=== PATIENT | female | born 1960 | race Caucasian/White ===

== ENCOUNTER 2024-05-24 08:51 | Outpatient (OUT) | payer BC, SELFPAY ==
--- NOTE | 2024-05-24 09:03 | ECG_ITS ---
[facility] Test Date: 2024-05-24 Pat Name: HAFSA JAIMES Department: Room: - Gender: Female Radiologist: : [id number] Requested By: MARILYN DUKE Order Number: [id number] Reading MD: SEVERINO COUCH Measurements Intervals [place] Rate: 59 P: 23 VA: 173 QRS: -27 QRSD: 90 T: 6 QT: 395 QTc: 394 Interpretive Statements SINUS BRADYCARDIA BORDERLINE LEFT AXIS DEVIATION [QRS AXIS < -20] No previous ECG available for comparison Electronically Signed On 05-24-2024 20:09:44 EDT by SEVERINO COUCH
[2024-05-24 10:17] LABS: Basophils Percent Auto 0.4 % (0.2-2.0); Eosinophils Absolute Auto 0.1 10^3/uL (0.0-0.7); Hematocrit 42.6 % (36.0-48.0); Immature Granulocytes Abs Auto 0.01 10^3/uL (0.00-0.03); Immature Granulocytes Pct Auto 0.2 % (0.0-0.5); Lymphocytes Absolute Auto 1.1 10^3/uL (1.2-3.8); Lymphocytes Percent Auto 21.1 % (20.5-60.0); Mean Corpuscular HGB Conc 32.9 g/dL (29.9-35.2); Mean Corpuscular Hemoglobin 28.4 pg (26.7-34.0); Mean Corpuscular Volume 86.4 fL (81.0-99.0); Mean Platelet Volume 9.5 fL (9.5-13.5); Monocytes Absolute Auto 0.3 10^3/uL (0.3-0.8); Monocytes Percent Auto 6.7 % (1.7-12.0); Neutrophils Absolute Auto 3.6 10^3/uL (1.4-6.5); Neutrophils Percent Auto 70.6 % (43.0-75.0); Platelet Count 231 10^3/uL (150-450); Red Blood Count 4.93 10^6/uL (4.20-5.40); Red Cell Distribution Width 13.1 % (11.0-15.0); White Blood Count 5.1 10^3/uL (4.0-11.0)
[2024-05-24 10:25] LABS: INR 1.05; Partial Thromboplastin Time 29.4 sec (22.3-36.2); Prothrombin Time 11.1 sec (9.0-11.6)
[2024-05-24 10:32] LABS: BUN Creatinine Ratio 11.8; Calcium 9.3 mg/dL (8.5-10.1); Chloride 106 mmol/L (98-107); Estimated GFR (African America >60 (>=60); Estimated GFR (Non-African Ame >60 (>=60); Glucose 109 mg/dL (74-106); Potassium 4.1 mmol/L (3.5-5.1); Sodium 142 mmol/L (136-145)
[2024-05-24 10:46] LABS: Anion Gap 14.5; Carbon Dioxide 25.6 mmol/L (21.0-32.0)
== END 2024-05-24 08:52 | disposition home or self-care (01) ==
LOC: PST 08:54
PROVIDERS: PCP Family Medicine; Visit Provider Obstetrics & Gynecology
DX: Z01.810 Encounter for preprocedural cardiovascular examination (principal); Z01.812 Encounter for preprocedural laboratory examination; N95.0 Postmenopausal bleeding
CPT/HCPCS: 80048; 85025; 85610; 85730; 93005

== ENCOUNTER 2024-06-04 06:08 | Day surgery (SDC) | payer BC, SELFPAY ==
[2024-05-24 09:47] VITALS: BP 149/85; PULSE 56; TEMP 36.4; O2SAT 97; BMI 31.4
--- OUTSIDE RECORDS SUMMARY | 2024-06-04 06:11 | XMS_ITS | CCD ---
Author Organization [facility] Care Team Providers Care Group Home Worker Name Role Phone Unavailable Primary Care Provider Unavailabl e NUZHAT MIKE Admitting Unavailable NUZHAT MIKE Attending Unavailable MORGAN, SOHAIL Referring Unavailable MORGAN, SOHAIL Referring Unavailable MORGAN, SOHAIL Referring Unavailable MORGAN, SOHAIL Referring Unavailable MORGAN, SOHAIL Referring Unavailable MORGAN, SOHAIL Referring Unavailable MORGAN, SOHAIL Referring Unavailable MORGAN, SOHAIL Referring Unavailable MORGAN, SOHAIL Referring Unavailable MORGAN, SOHAIL Referring Unavailable Kiet POWELL, Vanesa Shay Unavailable Nuzhat Mike MD Primary Care Provider BISI CARCAMO Attending Unavailab BISI Mathews Attending Unavailab BISI Mathews Attending Unavailab ADALID Pillai Attending Unavailable BISI CARCAMO Referring Unavailab ADALID Pillai Attending Unavailable MARILYN DUKE Attending Unavailable ADALID BORRERO Referring Unavailable BISI CARCAMO Attending Unavailab MARILYN Awad Attending Unavailable MODESTA LEARY Attending Unavailable NUZHAT MIKE Referring Unavailable NUZHAT MIKE Primary Care Unavailable MODESTA LEARY Attending Unavailable MODESTA LEARY Referring Unavailable NUZHAT MIKE Primary Care Unavailable MODESTA LEARY Attending Unavailable MODESTA LEARY Referring Unavailable NUZHAT MIKE Primary Care Unavailable MODESTA LEARY Attending Unavailable MODESTA LEARY Referring Unavailable NUZHAT MIKE Primary Care Unavailable MODETSA LEARY Attending Unavailable MODESTA LEARY Referring Unavailable NUZHAT MIKE Primary Care Unavailable PHILIPP LENNON Attending Unavailable NUZHAT MIKE Referring Unavailable NUZHAT MIKE Primary Care Unavailable Allergies Allergy Classification Reported Allergen(s) Allergy Type Date of Onset Reaction(s) Facility (2 sources) Cortisone; Translations: [CORTISONE] Drug Allergy 10-28-2023 Anxiety [facility] Work Phone: Medications Current Medications Medication Drug Class(es) Dates Sig (Normalized) Sig (Original) cholecalciferol 0.05 mg oral tablet (1 source) Vitamin D Start: 09-24-2023 take 1 tablet by mouth once daily cholecalciferol (Vitamin D-3) 50 MCG (1999) tablet Indications: Vitamin D deficiency TAKE 1 TABLET BY MOUTH EVERY DAY 90 tablet 0 09/24/2023 Active cranberry preparation 500 mg oral capsule (1 source) Non-Standardized Food Allergenic Extract, Non-Standardized Plant Allergenic Extract Cranberry (Cran-Max) 500 MG capsule Orally 0 Active dexlansoprazole 60 mg delayed release oral capsule (1 source) Proton Pump Inhibitor Start: 08-26-2023 End: 11-24-2023 take 1 capsule by mouth in the morning dexlansoprazole (Dexilant) [address] capsule Indications: Gastroesophageal reflux disease without esophagitis Take 1 capsule (60 mg) by mouth in the morning. 90 capsule 0 08/26/2023 11/24/2023 Active fluconazole 150 mg oral tablet (1 source) Azole Antifungal Start: 10-30-2023 End: 10-30-2023 take 1 tablet by mouth once fluconazole (Diflucan) 150 MG tablet Indications: Vaginal yeast infection Take 1 tablet (150 mg) by mouth 1 (one) time for 1 dose 1 tablet 0 10/30/2023 10/30/2023 Active fluocinolone acetonide 0.1 mg/ml otic solution (1 source) Corticosteroid Start: 07-29-2023 fluocinolone (DermOtic) 0.01 % ear drops Indications: Chronic eczematous otitis externa of left ear Administer 5 drops into each ear in the morning and 5 drops before bedtime. 20 mL 0 07/29/2023 Active 24 hr metoprolol succinate 50 mg extended release oral tablet (1 source) beta-Adrenergic Perla Start: 07-07-2023 take 1 tablet by mouth once daily metoprolol succinate XL (Toprol-XL) 50 MG 24 hr tablet Indications: Essential (primary) hypertension (CMS/HCC) TAKE 1 TABLET BY MOUTH EVERY DAY 90 tablet 1 07/07/2023 Active nitrofurantoin, macrocrystals 25 mg / nitrofurantoin, monohydrate 75 mg oral capsule (1 source) Nitrofuran Antibacterial Start: 10-28-2023 End: 11-04-2023 take 1 capsule by mouth in the morning nitrofurantoin, macrocrystal-monohyd rate, (Macrobid) 100 MG capsule Indications: Acute cystitis with hematuria Take 1 capsule (100 mg) by mouth in the morning and 1 capsule (100 mg) before bedtime. Do all this for 7 days. 14 capsule 0 10/28/2023 11/04/2023 Active rosuvastatin calcium 5 mg oral tablet (1 source) HMG-CoA Reductase Inhibitor Start: 08-12-2023 take 1 tablet by mouth once daily rosuvastatin (Crestor) 5 MG tablet Indications: Mixed dyslipidemia (CMS/HCC) TAKE 1 TABLET BY MOUTH EVERY DAY FOR 30 DAYS 30 tablet 5 08/12/2023 Active Problems Active Problems Problem Classification Problem Date Documented Date Episodic/Chronic Cardiac dysrhythmias (1 source) Paroxysmal atrial fibrillation; Translations: [Paroxysmal atrial fibrillation] Onset: 03-02-2024 Chronic Disorders of lipid metabolism (2 sources) Dyslipidemia; Translations: [Mixed hyperlipidemia] Onset: 11-06-2022 07-24-2023 Chronic Essential hypertension (2 sources) Essential hypertension; Translations: [Essential (primary) hypertension] Onset: 11-28-2016 07-24-2023 Chronic Heart valve disorders (1 source) Nonrheumatic mitral (valve) prolapse; Translations: [Nonrheumatic mitral (valve) prolapse] Onset: 07-09-2022 Chronic Mycoses (2 sources) Candidiasis of vagina; Translations: [Vaginal yeast infection] Onset: 07-29-2023 10-30-2023 Episodic Osteoarthritis (1 source) Osteoarthritis of left knee joint; Translations: [Unilateral primary osteoarthritis, left knee] Onset: 07-09-2022 07-24-2023 Chronic Unclassified (1 source) Pre-op Exam Onset: 06-02-2024 Unclassified (1 source) New Patient Onset: 03-02-2024 Past or Other Problems Problem Classification Problem Date Documented Date Episodic/Chronic Cardiac dysrhythmias (1 source) Palpitations; Translations: [Palpitations] Onset: 10-28-2022 Episodic Immunizations and screening for infectious disease (1 source) Vaccination needed; Translations: [Encounter for immunization] Onset: 07-29-2023 07-29-2023 Episodic Nonspecific chest pain (1 source) Other chest pain; Translations: [Other chest pain] Onset: 03-02-2024 Episodic Other screening for suspected conditions (not mental disorders or infectious disease) (1 source) Abnormal electrocardiogram [ECG] [EKG]; Translations: [Abnormal electrocardiogram (ECG) (EKG)] Onset: 03-02-2024 Episodic Results Test Name Value Interpretation Reference Range Facility US PELVIS TRANSVAGINALon US PELVIS TRANSVAGINAL FINDINGS: Uterus 7.0 x 5.2 x 3.5 cm Endometrium 5 mm Right ovary 2.0 x 1.2 x 1.2 cm Left ovary 1.7 x 1.1 x 1.5 cm Normal uterine orientation. Heterogeneous myometrium, no focal mass. Small amount of endocervical fluid outlines a 2 x 4 mm hypoechogenic nodule/polyp. Normal endometrium within the fundus and body. Normal ovaries. No pelvic fluid IMPRESSION: 1. Endocervical fluid, probable several millimeter polyp 2. Heterogeneous myometrium, no focal mass TRANSCRIBED BY: ELECTRONICALLY SIGNED BY: Vinay Flores MD Normal Not Available Superficial Wound Cultureon 05-24-2022 Superficial Wound Culture ORGANISM: Staphylococcus aureus (O:STAAUR) Quantity of Growth Light Growth ORGANISM: Pseudomonas aeruginosa (O:PSEAER) Quantity of Growth Light Growth Aerobic EMIR Charge (PC45) ---- SUSCEPTIBILITY --- ORGANISM: O:STAAUR ANTIBIOTIC INTERPRETATION EMIR Amoxacillin/K Clavulanate S <4/2 Ampicillin SKYLAR 8 Ampicillin/Sulbactam S <8/4 Azithromycin S <2 Cefazolin S <8 Ceftaroline S <0.5 Ceftriaxone S <8 Ciprofloxacin S <1 Clindamycin S <0.5 Daptomycin S <1 Erythromycin S <0.25 Levofloxacin S <1 Linezolid S <2 Meropenem S <4 Oxacillin S <0.25 Penicillin SKYLAR 8 Piperacillin/Tazobact am S <4 Rifampin S <1 Tetracycline S <4 Trimethoprim/Sulfamet hoxazole S <0.5/9.5 Vancomycin S 1 Aerobic EMIR Charge (NUC86) ---- SUSCEPTIBILITY --- ORGANISM: O:PSEAER ANTIBIOTIC INTERPRETATION EMIR Amikacin S <16 Aztreonam IB <4 Cefepime S <2 Ceftazidime IB <1 Ceftazidime/Avibactam S <8 Ciprofloxacin S <1 Gentamicin S <4 Levofloxacin S <2 Meropenem S <1 Piperacillin/Tazobact am IB <16 Tobramycin S <4 S = SUSCEPTIBLE I = INTERMEDIATE R = RESISTANT BLANK = DATA NOT AVAILABLE, OR DRUG NOT ADVISABLE OR TESTED R* = RESISTANCE DUE TO EXTENDED SPECTRUM BETA-LACTAMASES ESBL = EXTENDED SPECTRUM BETA-LACTAMASE TFG = THYMIDINE-DEPENDENT STRAIN SKYLAR = BETA-LACTAMASE POSITIVE IB = INDUCIBLE BETA-LACTAMASE. APPEARS IN PLACE OF 'S' WITH SPECIES KNOWN TO POSSESS INDUCIBLE BETA-LACTAMASES. POTENTIALLY THEY MAY BECOME RESISTANT TO ALL B-LACTAM DRUGS. PERFORMED BY: [place] [address] PATHOLOGIST CENTRAL OFFICE ASSOCIATE CHRISTOPHER VALLEJO M.D. Normal [facility] Comment on above: Performed By: #### C USUP #### [facility] [address] Q - CULTURE,URINE,ROUTINEon 11-06-2021 CULTURE, URINE, ROUTINE SEE NOTE Normal [facility] Tests Superintendent Comment on above: Order Comment: [facility] performed at: QPT, [facility], [address] [place] [address], [address] [place] [address], [place], [address], Hog Sticker: Dinh Ackerman MD [facility] Collection Date/Time: [id number] [facility] Results Received Date/Time: [id number] [facility] Reported Date/Time: FASTING: NO Result Comment: CULT URE, URINE, ROUTINE Micro Number: [id number] Test Status: Final Specimen Source: Urine Specimen Quality: Adequate Result: No Growth Performed By: #### 6 304R #### [facility] Default [address] [place] [address] [id number] 11-23-2020 SARS-CoV-2 Normal [facility] Comment on above: Performed By: #### C OVID #### [address] [address] Director Of Officiating: Timothy Bain MD SARS-CoV-2 DETECTED [facility] Comment on above: Result Comment: The specimen is POSITIVE for SARS-Cov-2, the novel coronavirus associated with COVID-19. Angi SARS-CoV-2 for use on the [employer] is a real-time RT-PCR test intended for the qualitative detection of nucleic acids from SARS-CoV-2 in clinician-collected nasal, nasopharyngeal, and oropharyngeal swab specimens from individuals who meet COVID-19 clinical and/or epidemiological criteria. Angi SARS-CoV-2 is for use only under Emergency Use Authorization (EUA) in laboratories certified under Clinical Laboratory Improvement Amendments of 1988 (CLIA), 42 U.S.C. ?263a, that meet requirements to perform high or moderate complexity tests. An individual without symptoms of COVID-19 and who is not shedding SARS-CoV-2 virus would expect to have a negative (not detected) result in this assay. Fact sheet for Healthcare Providers: https://www.fda.gov/media/127114/download Fact sheet for Patients: https://www.fda.gov/media/460886/download METHODOLOGY: RT-PCR Results reported to the appropriate Health Department Performed By: #### C OVID #### [address] [place] [address] Director Of Officiating: Timothy Bain MD [id number] 11-22-2020 SARS-CoV-2 Source .NASOPHARYNGEAL SWAB Normal [facility] Comment on above: Performed By: #### C OVID #### [address] [id number] Director Of Officiating: Timothy Bain MD [id number] 11-03-2020 SARS-CoV-2 Not Detected Normal [facility] Comment on above: Result Comment: The specimen is NEGATIVE for SARS-CoV-2, the novel coronavirus associated with COVID-19. A negative result does not rule out COVID-19. Angi SARS-CoV-2 for use on the [employer] is a real-time RT-PCR test intended for the qualitative detection of nucleic acids from SARS-CoV-2 in clinician-collected nasal, nasopharyngeal, and oropharyngeal swab specimens from individuals who meet COVID-19 clinical and/or epidemiological criteria. Angi SARS-CoV-2 is for use only under Emergency Use Authorization (EUA) in laboratories certified under Clinical Laboratory Improvement Amendments of 1988 (CLIA), 42 U.S.C. ?263a, that meet requirements to perform high or moderate complexity tests. An individual without symptoms of COVID-19 and who is not shedding SARS-CoV-2 virus would expect to have a negative (not detected) result in this assay. Fact sheet for Healthcare Providers: https://www.fda.gov/media/264471/download Fact sheet for Patients: https://www.fda.gov/media/401415/download METHODOLOGY: RT-PCR Performed By: #### C OVID #### [address] [id number] Director Of Officiating: Timothy Bain MD SARS-CoV-2 [facility] Comment on above: Performed By: #### C OVID #### [facility] [address] [place] [address] [id number] Director Of Officiating: Timothy Bain MD SARS-CoV-2,Rapid [facility] Comment on above: Performed By: #### C OVID #### [facility] [address] [place] [address] [id number] Director Of Officiating: Timothy Bain MD SARS-CoV-2 Source .NASOPHARYNGEAL SWAB Normal [facility] Comment on above: Performed By: #### C OVID #### [address] [id number] Director Of Officiating: Timothy Bain MD [id number] 10-22-2020 SARS-CoV-2 Not Detected Normal NOTDET [facility] Comment on above: Result Comment: The specimen is NEGATIVE for SARS-CoV-2, the novel coronavirus associated with COVID-19. A negative result does not rule out COVID-19. Angi SARS-CoV-2 for use on the [employer] is a real-time RT-PCR test intended for the qualitative detection of nucleic acids from SARS-CoV-2 in clinician-collected nasal, nasopharyngeal, and oropharyngeal swab specimens from individuals who meet COVID-19 clinical and/or epidemiological criteria. Angi SARS-CoV-2 is for use only under Emergency Use Authorization (EUA) in laboratories certified under Clinical Laboratory Improvement Amendments of 1988 (CLIA), 42 U.S.C. ?263a, that meet requirements to perform high or moderate complexity tests. An individual without symptoms of COVID-19 and who is not shedding SARS-CoV-2 virus would expect to have a negative (not detected) result in this assay. Fact sheet for Healthcare Providers: https://www.fda.gov/media/616399/download Fact sheet for Patients: https://www.fda.gov/media/333344/download METHODOLOGY: RT-PCR Performed By: #### C OVID #### [address] [id number] Director Of Officiating: Timothy Bain MD SARS-CoV-2 [facility] Comment on above: Performed By: #### C OVID #### [facility] [address] [place] [address] [id number] Director Of Officiating: Timothy Bain MD SARS-CoV-2,Rapid [facility] Comment on above: Performed By: #### C OVID #### [facility] [address] [place], [place] [id number] Director Of Officiating: Timothy Bain MD [id number] 10-20-2020 SARS-CoV-2 Source .NASOPHARYNGEAL SWAB Normal [facility] Comment on above: Performed By: #### C OVID #### [facility] [address] [place], [place] [id number] Director Of Officiating: Timothy Bain MD [id number] 10-07-2020 SARS-CoV-2 Not Detected Normal Not Detected [facility] Comment on above: Result Comment: (NOT E) This nucleic acid amplification test was developed and its performance characteristics determined by [employer]. Nucleic acid amplification tests include PCR and TMA. This test has not been FDA cleared or approved. This test has been authorized by FDA under an Emergency Use Authorization (EUA). This test is only authorized for the duration of time the declaration that circumstances exist justifying the authorization of the emergency use of in vitro diagnostic tests for detection of SARS-CoV-2 virus and/or diagnosis of COVID-19 infection under section 564(b)(1) of the Act, 21 U.S.C. 360bbb-3(b) (1), unless the authorization is terminated or revoked sooner. When diagnostic testing is negative, the possibility of a false negative result should be considered in the context of a patient's recent exposures and the presence of clinical signs and symptoms consistent with COVID-19. An individual without symptoms of COVID- 19 and who is not shedding SARS-CoV-2 virus would expect to have a negative (not detected) result in this assay. Performed At: [address] [id number] Ce Rogel PhD Ph:[phone] Performed By: #### A COV #### [facility] [address] [place] [address] Director Of Officiating: Edmund Gerard MD [id number] 09-30-2020 SARS-CoV-2 Not Detected Normal Not Detected [facility] Comment on above: Result Comment: (NOT E) This nucleic acid amplification test was developed and its performance characteristics determined by [employer]. Nucleic acid amplification tests include PCR and TMA. This test has not been FDA cleared or approved. This test has been authorized by FDA under an Emergency Use Authorization (EUA). This test is only authorized for the duration of time the declaration that circumstances exist justifying the authorization of the emergency use of in vitro diagnostic tests for detection of SARS-CoV-2 virus and/or diagnosis of COVID-19 infection under section 564(b)(1) of the Act, 21 U.S.C. 360bbb-3(b) (1), unless the authorization is terminated or revoked sooner. When diagnostic testing is negative, the possibility of a false negative result should be considered in the context of a patient's recent exposures and the presence of clinical signs and symptoms consistent with COVID-19. An individual without symptoms of COVID- 19 and who is not shedding SARS-CoV-2 virus would expect to have a negative (not detected) result in this assay. Performed At: [facility] [address] [facility] [place] [id number] Lonnie Perera MD Ph:[phone] Performed By: #### A COV #### [facility] [address] [place] [address] Director Of Officiating: Edmund Gerard MD [id number] 09-15-2020 SARS-CoV-2 Not Detected Normal Not Detected [facility] Comment on above: Result Comment: (NOT E) This nucleic acid amplification test was developed and its performance characteristics determined by [employer]. Nucleic acid amplification tests include PCR and TMA. This test has not been FDA cleared or approved. This test has been authorized by FDA under an Emergency Use Authorization (EUA). This test is only authorized for the duration of time the declaration that circumstances exist justifying the authorization of the emergency use of in vitro diagnostic tests for detection of SARS-CoV-2 virus and/or diagnosis of COVID-19 infection under section 564(b)(1) of the Act, 21 U.S.C. 360bbb-3(b) (1), unless the authorization is terminated or revoked sooner. When diagnostic testing is negative, the possibility of a false negative result should be considered in the context of a patient's recent exposures and the presence of clinical signs and symptoms consistent with COVID-19. An individual without symptoms of COVID- 19 and who is not shedding SARS-CoV-2 virus would expect to have a negative (not detected) result in this assay. Performed At: [facility] [address] [facility] [place] [id number] Lonnie Perera MD Ph:[phone] Performed By: #### A COV #### [facility] [address] [place] [address] Director Of Officiating: Edmund Gerard MD [id number] 09-10-2020 SARS-CoV-2 Not Detected Normal Not Detected [facility] Comment on above: Result Comment: (NOT E) This nucleic acid amplification test was developed and its performance characteristics determined by [employer]. Nucleic acid amplification tests include PCR and TMA. This test has not been FDA cleared or approved. This test has been authorized by FDA under an Emergency Use Authorization (EUA). This test is only authorized for the duration of time the declaration that circumstances exist justifying the authorization of the emergency use of in vitro diagnostic tests for detection of SARS-CoV-2 virus and/or diagnosis of COVID-19 infection under section 564(b)(1) of the Act, 21 U.S.C. 360bbb-3(b) (1), unless the authorization is terminated or revoked sooner. When diagnostic testing is negative, the possibility of a false negative result should be considered in the context of a patient's recent exposures and the presence of clinical signs and symptoms consistent with COVID-19. An individual without symptoms of COVID- 19 and who is not shedding SARS-CoV-2 virus would expect to have a negative (not detected) result in this assay. Performed At: [facility] [address] [place], [place] [id number] Yeseniasheree Villal[facility]and[facility]he[facility] Ph:[phone] Performed By: #### A COV #### [facility] [address] [place] [address] Director Of Officiating: Edmund Gerard MD [id number] 07-10-2020 SARS-CoV-2 Not Detected Normal Not Detected [facility] Comment on above: Result Comment: (NOT E) This nucleic acid amplification test was developed and its performance characteristics determined by [employer]. Nucleic acid amplification tests include PCR and TMA. This test has not been FDA cleared or approved. This test has been authorized by FDA under an Emergency Use Authorization (EUA). This test is only authorized for the duration of time the declaration that circumstances exist justifying the authorization of the emergency use of in vitro diagnostic tests for detection of SARS-CoV-2 virus and/or diagnosis of COVID-19 infection under section 564(b)(1) of the Act, 21 U.S.C. 360bbb-3(b) (1), unless the authorization is terminated or revoked sooner. When diagnostic testing is negative, the possibility of a false negative result should be considered in the context of a patient's recent exposures and the presence of clinical signs and symptoms consistent with COVID-19. An individual without symptoms of COVID- 19 and who is not shedding SARS-CoV-2 virus would expect to have a negative (not detected) result in this assay. Performed At: [facility] [address] [facility], [place] [id number] Lonnie Perera MD Ph:[phone] Performed By: #### A COV #### [facility] [address] [place], [place] [id number] Director Of Officiating: Edmund Gerard MD Encounters Encounter Date Encounter Type Care Provider Facility Start: 06-02-2024 End: 06-02-2024 ambulatory PHILIPP LENNON [facility] Start: 05-05-2024 End: 05-05-2024 ambulatory MARILYN DUKE Not Available Start: 04-29-2024 End: 04-29-2024 ambulatory BISI CARCAMO Not Available Start: 04-07-2024 End: 04-07-2024 ambulatory MARILYN LEILANI Not Available Start: 03-17-2024 End: 03-17[facility] Start: 03-17-2024 End: 03-17-2024 ambulatory [facility] Start: 03-15-2024 End: 03-15-2024 ambulatory ADALID L FLORO Not Available Start: 03-04-2024 End: 03-04-2024 ambulatory BISI CARCAMO Not Available Start: 03-02-2024 End: 03-02-2024 ambulatory [facility] Start: 02-16-2024 End: 02-16-2024 ambulatory BISI A CARCAMO Not Available Start: 02-16-2024 End: 02-16-2024 ambulatory ADALID L FLORO Not Available Start: 01-29-2024 End: 01-29-2024 ambulatory BISI A CARCAMO Not Available Start: 01-22-2024 End: 01-22-2024 ambulatory BISI CARCAMO Not Available Start: 01-20-2024 End: 01-20-2024 ambulatory BISI A CARCAMO Not Available Start: 10-29-2023 Telephone encounter [facility] Start: 10-28-2023 End: 10-28-2023 ambulatory BISI A CARCAMO Not Available Start: 11-22-2020 End: 11-23-2020 Patient encounter procedure SOHAILJAZZ MORGAN [facility] Start: 11-22-2020 End: 11-22-2020 Subsequent hospital visit by physician [facility] Start: 11-02-2020 End: 11-03-2020 Patient encounter procedure SOHAIL MORGAN [facility] Start: 11-02-2020 End: 11-02-2020 Subsequent hospital visit by physician [facility] Start: 10-19-2020 End: 10-20-2020 Patient encounter procedure SOHAIL MORGAN [facility] Start: 10-19-2020 End: 10-19-2020 Subsequent hospital visit by physician [facility] Start: 10-05-2020 End: 10-06-2020 Patient encounter procedure SOHAIL MORGAN [facility] Start: 10-05-2020 End: 10-05-2020 Subsequent hospital visit by physician VALDEMAR BOATENG DOCTOR Start: 09-27-2020 End: 09-28-2020 Patient encounter procedure SOHAILBrittaney TOTHI [facility] Start: 09-27-2020 End: 09-27-2020 Subsequent hospital visit by physician VALDEMAR TUTTLE LAB DOCTOR Start: 09-14-2020 End: 09-15-2020 Patient encounter procedure SOHAILBrittaney MORGAN [facility] Start: 09-14-2020 End: 09-14-2020 Subsequent hospital visit by physician VALDEMAR BOATENG DOCTOR Start: 09-07-2020 End: 09-08-2020 Patient encounter procedure SOHAILBrittaney MORGAN [facility] Start: 09-07-2020 End: 09-07-2020 Subsequent hospital visit by physician VALDEMAR BOATENG DOCTOR Start: 08-31-2020 End: 09-01-2020 Patient encounter procedure SOHAILJAZZ MORGAN [facility] Start: 08-31-2020 End: 08-31-2020 Subsequent hospital visit by physician VALDEMAR BOAETNG DOCTOR Start: 08-16-2020 End: 08-17-2020 Patient encounter procedure SOHAILBrittaney MORGAN [facility] Start: 08-16-2020 End: 08-16-2020 Subsequent hospital visit by physician VALDEMAR BOATENG DOCTOR Start: 07-10-2020 Patient encounter procedure NUZHAT MIKE Facility: Start: 07-07-2020 End: 07-08-2020 Patient encounter procedure SOHAILBrittaney MORGAN [facility] Start: 07-07-2020 End: 07-07-2020 Subsequent hospital visit by physician VALDEMAR TUTTLE LAB DOCTOR Procedures Date Procedure Procedure Detail Performing Clinician Start: 06-02-2024 Follow-up visit Follow-up PHILIPP LENNON Start: 04-21-2023 Mammography Halima Viveros MA Start: 09-14-2020 COVID-19 AMBULATORY TAIWO S MORGAN Start: 09-07-2020 COVID-19 AMBULATORY TAIWO S MORGAN Start: 08-31-2020 COVID-19 AMBULATORY TAIWO S MORGAN Start: 08-16-2020 COVID-19 AMBULATORY TAIWO S MORGAN Start: 07-07-2020 COVID-19 AMBULATORY TAIWO MORGAN Start: 01-31-2014 Colonoscopy Halima Viveros MA Plan of Treatment Date Care Activity Detail Author Start: 07-03-2027 Screening for malign ant neoplasm of cervix [facility] Start: 04-21-2024 Screening for malign ant neoplasm of breast Mammogram [facility] Start: 02-01-2024 Screening for malign ant neoplasm of colon [facility] Start: 01-23-2024 Urine screening for protein Diabetes: Urine Protein Screening [facility] Start: 01-20-2024 End: 01-20-2024 Patient encounter procedure 01/20/2024 2:00 PM EDT Office Visit [facility] [address] [place] [address] Bisi Carcamo NP [address] [place], [place] [id number] [facility] Start: 12-06-2023 Glaucoma screening Diabetes: R etinopathy Screening [facility] Start: 04-23-2023 Hemoglobin A1c measurement Diabetes: Hemoglobin A1C [facility] Start: 05-30-2020 Influenza vaccination Flu vaccine (# 1) [place], [place] Start: 2012 Screening for malign ant neoplasm of breast Breast cancer screen [place], [place] Start: 2012 Screening for malign ant neoplasm of colon Colon cancer screen colonoscopy [place], [place] Start: 2012 Shingles Vaccine (1 of 2) Shingles Vaccine (1 of 2) [place] Start: 2002 Lipid panel Lipid screen [place], [place] Start: 1983 Screening for malign ant neoplasm of cervix [facility] Start: 1981 DTaP/Tdap/Td vaccine (1 - Tdap) DTaP/Tdap/Td vaccine (1 - Tdap) [place], [place] Start: 1977 HIV screening HIV screen [place], [place] Start: 1962 Hepatitis C screening Hepatitis C sc reen [place], [place] Start: 1962 Screening for malign ant neoplasm of colon [facility] End: 10-19-2020 COVID-19 COVID-19 Lab Routine Once for 1 Occurrences starting 10/19/2020 until 10/19/2020 [facility], [place] Comment on above: Once for 1 Occurrenc es starting 10/19/2020 until 10/19/2020 COVID-19 [facility] [place] End: 11-02-2020 COVID-19 COVID-19 Lab Routine Once for 1 Occurrences starting 11/02/2020 until 11/02/2020 [facility], [place] Comment on above: Once for 1 Occurrenc es starting 11/02/2020 until 11/02/2020 End: 11-22-2020 COVID-19 COVID-19 Lab Routine Once for 1 Occurrences starting 11/22/2020 until 11/22/2020 [facility] Phone: Comment on above: Once for 1 Occurrenc es starting 11/22/2020 until 11/22/2020 End: 07-07-2020 Covid-19 Ambulatory Covid-19 Ambulatory Lab Routine Once for 1 Occurrences starting 07/07/2020 until 07/07/2020 [facility], [place] Comment on above: Once for 1 Occurrenc es starting 07/07/2020 until 07/07/2020 Covid-19 Ambulatory [facility], [place] End: 09-07-2020 Covid-19 Ambulatory Covid-19 Ambulatory Lab Routine Once for 1 Occurrences starting 09/07/2020 until 09/07/2020 [facility], [place] Comment on above: Once for 1 Occurrenc es starting 09/07/2020 until 09/07/2020 End: 09-14-2020 Covid-19 Ambulatory Covid-19 Ambulatory Lab Routine Once for 1 Occurrences starting 09/14/2020 until 09/14/2020 [facility], [place] Comment on above: Once for 1 Occurrenc es starting 09/14/2020 until 09/14/2020 End: 09-27-2020 Covid-19 Ambulatory Covid-19 Ambulatory Lab Routine Once for 1 Occurrences starting 09/27/2020 until 09/27/2020 [facility], [place] Comment on above: Once for 1 Occurrenc es starting 09/27/2020 until 09/27/2020 End: 10-05-2020 Covid-19 Ambulatory Covid-19 Ambulatory Lab Routine Once for 1 Occurrences starting 10/05/2020 until 10[facility]05[facility] above: Once for 1 Occurrenc es starting 10/05/2020 until 10/05/2020 End: 08-16-2020 Covid-19 Ambulatory Covid-19 Ambulatory Lab Routine Once for 1 Occurrences starting 08/16/2020 until 08/16/2020 [facility] Comment on above: Once for 1 Occurrenc es starting 08/16/2020 until 08/16/2020 End: 08-31-2020 Covid-19 Ambulatory Covid-19 Ambulatory Lab Routine Once for 1 Occurrences starting 08/31/2020 until 08/31/2020 [facility] Comment on above: Once for 1 Occurrenc es starting 08/31/2020 until 08/31/2020 Immunizations Immunization Date Immunization Notes Care Provider Fa [facility] 07-24-2023 influenza, injectabl e, quadrivalent, preservative free Halima Blanc MA [facility] Payers Date Payer Category Payer Unknown BCBS BCBS [id number] [id number] 2020-Present [phone] [address] [place] [address] [id number] 2010 Unknown [id number]. [id number] 1962 Unknown [id number] 2.16.840.1.618927.3.579.2.593 1962 Unknown [id number] 2.16.840.1.921850.3.579.2.175 1962 Unknown [id number] 2.16.840.1.515292.3.579.2.175 1962 Unknown [id number] 2.16.840.1.080001.3.579.2.175 1962 Unknown [id number] 2.16.840.1.889577.3.579.2.175 1962 Unknown [id number] 2.16.840.1.710710.3.579.2.175 1962 Unknown [id number] 2.16.840.1.535071.3.579.2.1259 1962 Unknown [id number] 2.16.840.1.570932.3.579.2.1258 1962 Unknown [id number] 2.16.840.1.526724.3.579.2.1259 1962 Unknown [id number] 2.16.840.1.463515.3.579.2.1258 1962 Unknown [id number] 2.16.840.1.873876.3.579.2.1258 1962 Unknown [id number] 2.16.840.1.612447.3.579.2.1258 1962 Unknown [id number] 2.16.840.1.868291.3.579.2.1258 1962 Unknown [id number] 2.16.840.1.476279.3.579.2.1258 1962 Unknown [id number] 2.16.840.1.833940.3.579.2.9 1962 Unknown [id number] 2.16.840.1.473770.3.579.2.1259 1962 Unknown [id number] 2.16.840.1.620585.3.579.2.125 1962 Unknown [id number] 2.16.840.1.018038.3.579.2.1286 1962 Unknown [id number] 2.16.840.1.924322.3.579.2.1286 1962 Unknown [id number] 2.16.840.1.980304.3.579.2.1285 1962 Unknown [id number] 2.16.840.1.019441.3.579.2.1286 1962 Unknown [id number] 2.16.840.1.469908.3.579.2.1286 1962 Unknown [id number] 2.16.840.1.914484.3.579.2.1286 1962 Unknown [id number] 2.16.840.1.605725.3.579.2.1286 1959 Self-pay Social History Date Type Detail Facility [facility] [place] [place] Start: 1960 Sex Assigned At Not on file [facility], [place] Start: 07-10-2023 Tobacco smoking stat [facility] Never smoked tobacco [facility] Start: 07-10-2023 Tobacco use and exposure Smokeless tobacco non-user [facility] Start: 10-28-2023 Alcohol intake Current drinke r of alcohol (finding) [facility] Start: 10-28-2023 History of Social function [facility] Start: 10-28-2023 Tobacco use panel [facility] Start: 07-10-2023 Alcohol Comment Alcohol: 1 or 2 drinks on a typical day/monthly or less Caffeine: 1-2 cups/day soda/pop [facility] Telephone encounter Note 10-30-2023 Telephone Encounter - Bisi Carcamo NP - 10/30/2023 1:05 PM EST Note Date & Type Note Facility 10-30-2023 Telephone encount er Note sent [facility] Note 10-30-2023 Telephone Encounter - Bisi Carcamo NP - 10/30/2023 1:05 PM ESTTelephone Encounter - Halima Blanc MA - 10/29/2023 4:50 PM EST Note Date & Type Note Facility 10-30-2023 Miscellaneous Notes Formattin g of this note might be different from the original. sent Pt called stating that in her appt she asked if she could get diflucan sent over as well with an abx to the pharm but they only received a script for the abx. Can she get diflucan as well? documented in this encounter [facility] Telephone encounter Note 10-29-2023 Telephone Encounter - Halima Blanc MA - 10/29/2023 4:50 PM EST Note Date & Type Note Facility 10-29-2023 Telephone encount er Note Pt called stating that in her appt she asked if she could get diflucan sent over as well with an abx to the pharm but they only received a script for the abx. Can she get diflucan as well? [facility] Evaluation note Note Date & Type Note Facility Evaluation note Diagnosis Vaginal yeast infection- Primary Candidiasis of vulva and vagina documented in this encounter [facility] Summary Purpose Family History No Family History Records FoundNo Family History Records FoundNo Family History Records FoundNo Family History Records FoundNo Family History Records FoundNo Family History Records FoundNo Family History Records Found Advance Directives No Advanced Directives Records FoundNo Advanced Directives Records FoundNo Advanced Directives Records FoundNo Advanced Directives Records FoundNo Advanced Directives Records FoundNo Advanced Directives Records FoundNo Advanced Directives Records Found Additional Source Comments INFORMATION SOURCE (unrecogn ized section and content) DATE CREATED AUTHOR 07/16/2020 [facility] DATE CREATED AUTHOR AUTHOR'S ORGANIZ ATION 09/10/2020 [facility] DATE CREATED AUTHOR AUTHOR'S ORGANIZ ATION 11/24/2020 [facility] DATE CREATED AUTHOR AUTHOR'S ORGANIZ ATION 11/08/2021 [facility] DATE CREATED AUTHOR AUTHOR'S ORGANIZ ATION 06/07/2022 [facility] DATE CREATED AUTHOR AUTHOR'S ORGANIZ ATION 05/07/2024 [facility] EPIC DATE CREATED AUTHOR AUTHOR'S AMINTA ATION 06/03/2024 [facility] Care Teams (unrecognized sec tion and content) 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 This clinical summary was aggregated from multiple sources. Caution should be exercised in using it in the provision of clinical care. This summary normalizes information from multiple sources, and as a consequence, information in this document may materially change the coding, format and clinical context of patient data. In addition, data may be omitted in some cases. CLINICAL DECISIONS SHOULD BE BASED ON THE PRIMARY CLINICAL RECORDS. [employer] [facility]. provides no warranty or guarantee of the accuracy or completeness of information in this document.
[2024-06-04 06:25] LABS: Basophils Percent Auto 0.4 % (0.2-2.0); Eosinophils Percent Auto 0.6 % (0.9-7.0); Hematocrit 42.3 % (36.0-48.0); Hemoglobin 13.8 g/dL (12.0-16.0); Lymphocytes Absolute Auto 1.6 10^3/uL (1.2-3.8); Mean Corpuscular HGB Conc 32.6 g/dL (29.9-35.2); Mean Corpuscular Hemoglobin 28.2 pg (26.7-34.0); Mean Corpuscular Volume 86.5 fL (81.0-99.0); Mean Platelet Volume 9.3 fL (9.5-13.5); Monocytes Absolute Auto 0.4 10^3/uL (0.3-0.8); Monocytes Percent Auto 7.9 % (1.7-12.0); Neutrophils Absolute Auto 3.1 10^3/uL (1.4-6.5); Neutrophils Percent Auto 60.1 % (43.0-75.0); Platelet Count 244 10^3/uL (150-450); Red Blood Count 4.89 10^6/uL (4.20-5.40); White Blood Count 5.1 10^3/uL (4.0-11.0)
[2024-06-04 06:42] VITALS: BP 166/98; PULSE 67; TEMP 35.9; O2SAT 97; BMI 31.4
[2024-06-04] MEDS: LACTATED RINGER'S SOLUTION 1,000 ML 50 ML IV (06:57)
--- NOTE | 2024-06-04 08:06 | PM.ONB ---
Brief Operative Note Date of procedure: 06/04/24 Pre-op diagnosis general: thickened endometrium, pmb Post-op diagnosis: same as pre-op Procedure: NAME OF PROCEDURE: [ D&c hysteroscopy with myosure] PROCEDURE: The patient was taken back to the Operating Room where she was prepped and draped in normal sterile fashion after being placed under general anesthesia without difficulty. She was also placed in the dorsal lithotomy position. A weighted speculum was placed in the patient?s vagina. The anterior lip of the cervix was identified and grasped with a single tooth tenaculum. The patient?s uterus was then sounded roughly to [? 8] cm. The patient was then gently dilated using Hegar dilators. The hysteroscope was passed through the patient?s cervix into the uterus. Both ostia were identified. fluffy appearing endometrium. No gross evidence of malignancy, no gross evidence of polyps or fibroids. The myosure apparatus was placed through the scope, The myosure was engaged and endometrial curretting were removed along with endometrial polyp, The hysteroscope was then removed from the uterus. The endometrial curettings were sent out to pathology. The single tooth tenaculum was then removed from the patient's anterior lip of the cervix where excellent hemostasis was noted. All instruments were removed from the patient?s vagina. The patient tolerated the procedure well. Sponge, lap and needle counts were correct times two. The patient was taken to the Recovery Room in stable condition.Room in stable condition. Anesthesia: MAC Surgeon: Liam Brown Estimated blood loss (mL): 5 Pathology: other (endometrial polyp, endometrial currettings) Condition: stable Disposition: PACU Urinary Catheter Management Urinary Catheter Management Urethral: Cath placed during this visit: no
[2024-06-04 08:12] VITALS: BP 139/63; PULSE 59; TEMP 36.8; O2SAT 93
[2024-06-04 08:27] VITALS: BP 140/72; PULSE 58; O2SAT 94
[2024-06-04 08:42] VITALS: BP 138/70; PULSE 58; O2SAT 96
[2024-06-04] MEDS: LACTATED RINGER'S SOLUTION 1,000 ML 150 ML IV (08:50)
[2024-06-04 09:12] VITALS: BP 139/77; PULSE 62; O2SAT 97
--- NOTE | 2024-06-04 09:34 | PC.NURSE ---
0925: pt ambulates to bathroom with minimal assistance,pt voids without difficulty.
== END 2024-06-04 09:32 | disposition home or self-care (01) ==
PROVIDERS: PCP Family Medicine; Visit Provider Obstetrics & Gynecology
PROC: (CPT 952; principal; 2024-06-04 07:30)
DX: N95.0 Postmenopausal bleeding (principal); R93.89 Abnormal findings on diagnostic imaging of other specified body structures; N84.0 Polyp of corpus uteri; I10 Essential (primary) hypertension; Z98.51 Tubal ligation status; I48.91 Unspecified atrial fibrillation; Z79.01 Long term (current) use of anticoagulants; K21.9 Gastro-esophageal reflux disease without esophagitis; E11.9 Type 2 diabetes mellitus without complications
CPT/HCPCS: 58558; 36415; 85025; 88305; J1885; J2704; J3010

== ENCOUNTER 2024-10-15 09:56 | Outpatient (OUT) | payer BC, SELFPAY ==
--- OUTSIDE RECORDS SUMMARY | 2024-10-15 10:04 | XMS_ITS | CCD ---
Author Organization [facility] Care Team Providers Care Deck Steward Name Role Phone Unavailable Primary Care Provider Unavailabl e NUZHAT MIKE Admitting Unavailable NUZHAT MIKE Attending Unavailable MORGAN, SOHAIL Referring Unavailable MORGAN, SOHAIL Referring Unavailable MORGAN, SOHAIL Referring Unavailable MORGAN, SOHAIL Referring Unavailable MORGAN, SOHAIL Referring Unavailable MORGAN, SOHAIL Referring Unavailable MORGAN, SOHAIL Referring Unavailable MORGAN, SOHAIL Referring Unavailable MORGAN, SOHAIL Referring Unavailable MORGAN, SOHAIL Referring Unavailable Vanesa Santa NP Unavailable Nuzhat Mike MD Primary Care Provider NO FAMILY, PHYSICIAN Primary Care Provider Unava ilable DO Liam Brown Attending Provider NO FAMILY, PHYSICIAN Primary Care Unavailable Liam Brown Attending Unavailable Liam Brown Admitting Unavailable Bisi Carcamo NP Unavailable BISI CARCAMO Attending Unavailab BISI Mathews Attending Unavailab le BISI CARCAMO Attending Unavailab ADALID Pillai Attending Unavailable BISI CARCAMO Referring Unavailab ADALID Pillai Attending Unavailable LIAM BROWN Attending Unavailable TERRY BORREROE Rock Referring Unavailable BISI CARCAMO Attending Unavailab LIAM Awad Attending Unavailable CATHLEEN OLEA Attending Unavailable LIAM BROWN Attending Unavailable LIAM BROWN Attending Unavailable Nuzhat Mike MD Primary Care Provider LINDA LEARY Attending Unavailable NUZHAT MIKE Referring Unavailable NUZHAT MIKE Primary Care Unavailable ELENIKHOI SERAFINJAMIE M Attending Unavailable LINDA LEARY M Referring Unavailable NUZHAT MIKE Primary Care Unavailable MISSYALEX SERAFINJAMIE M Attending Unavailable ELENILINDA WESTFALL M Referring Unavailable NUZHAT MIKE Primary Care Unavailable ELENILINDA WESTFALL M Attending Unavailable LINDA LEARY M Referring Unavailable NUZHAT MIKE Primary Care Unavailable SAPPHIRELINDA M Attending Unavailable ELENILINDA WESTFALL M Referring Unavailable NUZHAT MIKE Primary Care Unavailable PHILIPP LENNON Attending Unavailable NUZHAT MIKE Referring Unavailable NUZHAT MIKE Primary Care Unavailable LIAM BROWN Referring Unavailable NUZHAT MIKE Primary Care Unavailable LINDA DIAZ Attending Unavailable NUZHAT MIKE Referring Unavailable NUZHAT MIKE Primary Care Unavailable NUZHAT MIKE Primary Care Unavailable Allergies Allergy Classification Reported Allergen(s) Allergy Type Date of Onset Reaction(s) Facility (20 sources) Cortisone; Translations: [CORTISONE] Drug Allergy 10-28-2023 Anxiety [facility] Work Phone: Medications Current Medications Medication Drug Class(es) Dates Sig (Normalized) Sig (Original) apixaban 5 mg oral tablet (20 sources) Factor Xa Inhibitor Start: 03-02-2024 End: 09-23-2024 take 1 tablet by mouth in the morning, then take 1 tablet by mouth at bedtime apixaban (ELIQUIS) 5 mg tablet Indications: Paroxysmal atrial fibrillation ([facility]) Take 1 tablet (5 mg total) by mouth in the morning and 1 tablet (5 mg total) before bedtime. 60 tablet 1 09/24/2024 Active cholecalciferol 0.05 mg oral tablet (20 sources) Vitamin D Start: 11-06-2022 End: 09-14-2024 take 1 tablet by mouth once daily cholecalciferol (Vitamin D-3) 50 MCG (1999 UT) tablet Indications: Vitamin D deficiency TAKE 1 TABLET BY MOUTH EVERY DAY 90 tablet 1 09/14/2024 Active cranberry preparation 650 mg oral capsule (20 sources) Non-Standardized Food Allergenic Extract, Non-Standardized Plant Allergenic Extract take 1 capsule by mouth in the morning cranberry extract 650 mg capsule Take 650 mg by mouth in the morning. Active Cranberry (Cran- Max) 500 MG capsule Orally Active Cranberry (Cran- Max) 500 MG capsule Orally 0 Active dexlansoprazole 60 mg delayed release oral capsule (20 sources) Proton Pump Inhibitor Start: 01-17-2024 End: 09-08-2024 take 1 capsule by mouth once daily dexlansoprazole (Dexilant) [address] capsule Indications: Gastroesophageal reflux disease without esophagitis Take 1 capsule (60 mg) by mouth Daily 90 capsule 09/09/2024 Active Start: 08-26-2023 End: 11-24-2023 take 1 capsule [...] Active fluocinolone acetonide 0.1 mg/ml otic solution (20 sources) Corticosteroid Start: 07-30-2024 fluocinolone (DermOtic) 0.01 % ear drops Indications: Chronic eczematous otitis externa of left ear ADMINISTER 5 DROPS INTO EACH EAR IN THE MORNING AND 5 DROPS BEFORE BEDTIME. 20 mL 07/30/2024 Active Start: 06-07-2024 fluocinolone ( DermOtic) 0.01 % ear drops Indications: Chronic eczematous otitis externa of left ear ADMINISTER 5 DROPS INTO EACH EAR IN THE MORNING AND 5 DROPS BEFORE BEDTIME. 20 mL 06/07/2024 Active Start: 01-29-2024 End: 07-30-2024 fluocinolone (DermOtic) 0.01 % ear drops Indications: Chronic eczematous otitis externa of left ear ADMINISTER 5 DROPS INTO EACH EAR IN THE MORNING AND 5 DROPS BEFORE BEDTIME. 20 mL 07/30/2024 Active Start: 07-29-2023 fluocinolone ( DermOtic) 0.01 % ear drops Indications: Chronic eczematous otitis externa of left ear Administer 5 drops into each ear in the morning and 5 drops before bedtime. 20 mL 0 07/29/2023 Active 24 hr metoprolol succinate 50 mg extended release oral tablet (20 sources) beta-Adrenergic Perla Start: 06-02-2024 take 1 tablet by mouth every twenty-four hours in the morning, then take 1 tablet by mouth at bedtime metoprolol succinate XL (TOPROL XL) 50 mg 24 hr tablet Indications: hypertension Take 1 tablet (50 mg total) by mouth in the morning and 1 tablet (50 mg total) before bedtime. Indications: high blood pressure. 180 tablet 3 06/02/2024 Active Start: 01-17-2024 End: 06-16-2024 take 1 tablet by mouth once daily metoprolol succinate XL (Toprol-XL) 50 MG 24 hr tablet Indications: Essential (primary) hypertension (CMS/HCC) TAKE 1 TABLET BY MOUTH EVERY DAY 30 tablet 5 01/17/2024 06/16/2024 Discontinued Start: 07-07-2023 take 1 tablet by jeff once daily metoprolol succinate XL (Toprol-XL) 50 MG 24 hr tablet Indications: Essential (primary) hypertension (CMS/HCC) TAKE 1 TABLET BY MOUTH EVERY DAY 90 tablet 1 07/07/2023 Active nitrofurantoin, macrocrystals 25 mg / nitrofurantoin, monohydrate 75 mg oral capsule (1 source) Nitrofuran Antibacterial Start: 10-28-2023 End: 11-04-2023 take 1 capsule by mouth in the morning nitrofurantoin, macrocrystal-monohydrate, (Macrobid) 100 MG capsule Indications: Acute cystitis with hematuria Take 1 capsule (100 mg) by mouth in the morning and 1 capsule (100 mg) before bedtime. Do all this for 7 days. 14 capsule 0 10/28/2023 11/04/2023 Active rosuvastatin calcium 5 mg oral tablet (20 sources) HMG-CoA Reductase Inhibitor Start: 06-25-2022 End: 08-18-2024 rosuvastatin (CRESTOR) 5 mg tablet Indications: hyperlipidemia Take by mouth daily Indications: excessive fat in the blood. 06/25/2022 Active Problems Active Problems Problem Classification Problem Date Documented Date Episodic/Chronic Abdominal pain (1 source) Pain in female pelvis; Translations: [Pelvic and perineal pain] 09-16-2024 Episodic Anxiety disorders (20 sources) Anxiety; Translations: [Anxiety disorder, unspecified] Onset: 07-19-2020 01-20-2024 Chronic Cardiac dysrhythmias (5 sources) Paroxysmal atrial fibrillation; Translations: [Paroxysmal atrial fibrillation] Onset: 03-02-2024 09-23-2024 Chronic Cardiac dysrhythmias (20 sources) Palpitations; Translations: [Palpitations] Onset: 10-28-2022 01-20-2024 Episodic Disorders of lipid metabolism (20 sources) Dyslipidemia; Translations: [Mixed hyperlipidemia] Onset: 11-03-2020 Resolved: 01-20-2024 07-24-2023 Chronic Esophageal disorders (20 sources) Gastroesophageal reflux disease without esophagitis; Translations: [Gastro-esophageal reflux disease without esophagitis] Onset: 05-03-2019 01-20-2024 Chronic Essential hypertension (20 sources) Essential hypertension; Translations: [Essential (primary) hypertension] Onset: 11-28-2016 07-24-2023 Chronic Heart valve disorders (20 sources) Mitral valve prolapse; Translations: [Nonrheumatic mitral (valve) prolapse] Onset: 07-19-2020 01-20-2024 Chronic Menopausal disorders (20 sources) Postmenopausal bleeding; Translations: [Postmenopausal bleeding] Onset: 05-04-2017 Resolved: 01-20-2024 07-14-2024 Chronic Menstrual disorders (20 sources) Irregular periods; Translations: [Irregular menstruation, unspecified] Onset: 08-06-2015 01-20-2024 Chronic Nutritional deficiencies (20 sources) Vitamin D deficiency; Translations: [Vitamin D deficiency, unspecified] Onset: 07-09-2022 01-20-2024 Chronic Osteoarthritis (20 sources) Osteoarthritis of left knee joint; Translations: [Unilateral primary osteoarthritis, left knee] Onset: 07-09-2022 Resolved: 01-20-2024 07-24-2023 Chronic Other aftercare (2 sources) Surgical follow-up; Translations: [Encounter for follow-up examination after completed treatment for conditions other than malignant neoplasm] 06-16-2024 Episodic Other ear and sense organ disorders (20 sources) Chronic eczema of external auditory canal; Translations: [Other otitis externa, bilateral] Onset: 04-26-2021 01-20-2024 Chronic Other ear and sense organ disorders (2 sources) Chronic otitis externa of left external auditory canal; Translations: [Other otitis externa, left ear] 07-30-2024 Chronic Other female genital disorders (1 source) Pain in female genitalia on intercourse; Translations: [Unspecified dyspareunia] 09-16-2024 Chronic Other nutritional; endocrine; and metabolic disorders (20 sources) Obese class I; Translations: [Class 1 obesity] Onset: 07-09-2022 01-20-2024 Chronic Other screening for suspected conditions (not mental disorders or infectious disease) (2 sources) Encounter for screening mammogram for malignant neoplasm of breast; Translations: [Abnormal electrocardiogram [ECG] [EKG]] Onset: 03-02-2024 Episodic Unclassified (1 source) Pre-op Exam Onset: 06-02-2024 Unclassified (1 source) New Patient Onset: 03-02-2024 Past or Other Problems Problem Classification Problem Date Documented Da te Episodic/Chronic Calculus of urinary tract (20 sources) Kidney stone; Translations: [Calculus of kidney] Onset: 11-10-2017 Resolved: 01-20-2024 01-20-2024 Episodic Diabetes mellitus without complication (20 sources) Type 2 diabetes mellitus without complication; Translations: [Type 2 diabetes mellitus without complications] Onset: 05-25-2016 Resolved: 11-06-2022 01-20-2024 Chronic Genitourinary symptoms and ill-defined conditions (20 sources) Microscopic hematuria; Translations: [Other microscopic hematuria] Onset: 11-10-2017 01-20-2024 Episodic Immunizations and screening for infectious disease (19 sources) Vaccination needed; Translations: [Encounter for immunization] Onset: 07-29-2023 Resolved: 01-20-2024 07-29-2023 Episodic Mycoses (20 sources) Candidiasis of vagina; Translations: [Vaginal yeast infection] Onset: 07-29-2023 Resolved: 01-20-2024 10-30-2023 Episodic Nausea and vomiting (20 sources) Nausea; Translations: [Nausea] Onset: 11-06-2022 Resolved: 01-20-2024 01-20-2024 Episodic Nonspecific chest pain (1 source) Other chest pain; Translations: [Other chest pain] Onset: 03-02-2024 Episodic Other diseases of kidney and ureters (3 sources) Cyst of kidney; Translations: [Cyst of kidney, acquired] Onset: 11-10-2017 12-16-2022 Episodic Other upper respiratory disease (20 sources) Pain in throat; Translations: [Pain in throat] Onset: 05-20-2019 Resolved: 01-20-2024 01-20-2024 Episodic Unclassified (3 sources) Onset: 05-20-2019 05-20-2019 Results Test Name Value Interpretation Reference Range Facility Lipid 1996 panelon 5 Cholesterol [Mass/Vol] 144 mg/dL Low 150-200 [facility] Comment on above: Performed By: #### 2 4331-1 #### [facility] ([id number]) [address], [address] [place] [address] Cholesterol in HDL [Mass/Vol] 55 mg/dL Normal >39 [facility] Comment on above: Result Comment: HDL <40 mg/dL - High Risk HDL > or = 40mg/dL- Desirable HDL >60 mg/dL - Negative Risk Performed By: #### 2 4331-1 #### [facility] ([id number]) [address], [address] [place] [address] Cholesterol in LDL [Mass/Vol] 79 mg/dL Normal <130 [facility] Comment on above: Result Comment: LDL <100 mg/dL - Desirable LDL >160 mg/dL - High Risk Performed By: #### 2 4331-1 #### [facility] ([id number]) [address], [address] [place] [address] Cholesterol in VLDL [Mass/Vol] 10 mg/dL Normal 0-30 [facility] Comment on above: Performed By: #### 2 4331-1 #### [facility] ([id number]) [address], [address] [place] [address] CHOLESTEROL:HDL 2.6 Normal 1.0-5.0 [facility] Comment on above: Performed By: #### 2 4331-1 #### [facility] ([id number]) [address], [address] [place] [address] Triglyceride [Mass/Vol] 49 mg/dL Normal 27-150 [facility] Comment on above: Performed By: #### 2 4331-1 #### [facility] ([id number]) [address], [address] [place] [address] POCT EKGon 09-23-2024 [facility] Urinalysis macro (dipstick) panel (U)on 08-03-2024 Bilirubin, UA Negative Negative - 4(70) +++ mg/dL [facility] Blood, UA Negative Negative - 50 John/mcL [facility] Clarity, UA Clear [facility] Color, UA Yellow [facility] Glucose, UA Negative Negative - 1999(110) ++++ mg/dL [facility] Interpretation and review of laboratory results Normal [facility] Ketones, UA Negative Negative - 160(16) ++++ mg/dL [facility] Leukocytes, UA Negative Negative - 500+++ Donte/mcL [facility] Nitrite, UA Negative Negative - Positive [facility] pH, UA 6 5 - 9 [facility] Protein, UA Negative Negative - 1999(20) ++++ mg/dL [facility] Spec Grav, UA 1.01 1 - 1.03 [facility] Urobilinogen, UA 0.2 0.2 - 12 mg/dL [facility] MAMM SCREENING BILATERAL W C manager case management 07-19-2024 MAMM SCREENING BILATERAL W CAD MAMM SCREENING BILATERAL W CAD HAFSA TOWNSENDRANJANAALVARADO 1960 [id number] EXAM: MAMM SCREENING BILATERAL W CAD, 07/16/2024 1:50 PM CLINICAL INDICATIONS: Screening, Visit for screening mammogram COMPARISON: 04/18/2023 and priors TECHNIQUE: Bilateral digital tomosynthesis MLO and CC views of the breasts were obtained, with creation of synthetic 2D views. Computer aided detection was utilized. FINDINGS: The breasts are heterogeneously dense, which may obscure small masses. There are no suspicious masses, calcifications, or areas of architectural distortion. IMPRESSION: No mammographic evidence of malignancy. BI-RADS: BI-RADS 1 - Negative RECOMMENDATION: Routine screening mammogram in 1 year. RISK ASSESSMENT: TC Lifetime risk: 13.5%. The patient's reported personal and family medical history was used calculate their Tyrer-Cuzick lifetime risk of malignancy. Scores less than 20% are not considered high risk per ACR guidelines and patient should continue with the above recommendation. Finalized by Fabio Rivera MD on 07/19/2024 11:47 AM 1 c MAMM 1 YR Normal [facility] ALL CBC WITH AUTO DIFFon BASOPHILS ABSOLUTE AUTO 0.0 [facility] Basophils/100 WBC (Bld) 0.4 % 0.2 - 2.0 % [facility] Eosinophils/100 WBC (Bld) 0.6 % Low 0.9 - 7.0 % [facility] Erythrocyte distribution width (RBC) [Ratio] 13.0 % 11.0 - 15.0 % [facility] Hematocrit (Bld) [Volume fraction] 42.3 % 36.0 - 48.0 % [facility] Hem[facility] (Bld) [Mass/Vol] 13.8 g/dL 12.0 - 16.0 g/dL [facility] IMMATURE GRANULOCYTES ABS AUTO 0.00 [facility] Immature granulocytes/100 WBC (Bld) 0.0 % 0.0 - 0.5 % [facility] Interpretation and review of laboratory results Abnormal [facility] LYMPHOCYTES ABSOLUTE AUTO 1.6 [facility] Lymphocytes/100 WBC (Bld) 31.0 % 20.5 - 60.0 % [facility] MCH (RBC) [Entitic mass] 28.2 pg 26.7 - 34.0 pg [facility] MCHC (RBC) [Mass/Vol] 32.6 g/dL 29.9 - 35.2 g/dL [facility] MCV (RBC) [Entitic vol] 86.5 fL 81.0 - 99.0 fL [facility] MONOCYTES ABSOLUTE AUTO 0.4 [facility] Monocytes/100 WBC (Bld) 7.9 % 1.7 - 12.0 % [facility] NEUTROPHILS ABSOLUTE AUTO 3.1 [facility] Neutrophils/100 WBC (Bld) 60.1 % 43.0 - 75.0 % [facility] Platelet mean volume (Bld) [Entitic vol] 9.3 fL Low 9.5 - 13.5 fL [facility] EO # 0.0 [facility] PLT 244 [facility] RBC 4.89 [facility] WBC 5.1 [facility] Babar 06-04-2024 L Specimen: [id number] Received: 06/07/24 Status: COLLEEN Carpio Num: [id number] Spec Type: Surgical Subm Dr: Liam Brown Tissues: A Endometrium - Curettings (ENDOMETRIAL CURRETTINGS) Procedures: HE/2, Gross/Micro L4 Age/ Patient Sex Location Account Attending Physician Hafsa Flores 64/F [facility] [id number] Liam Brown SPEC NUM: [id number] RECD: 06/07/24 STATUS: COLLEEN CARPIO NUM: [id number] ARELI: 06/04/[address]: Liam Brown ENTERED: 06/07/[address] [facility] [address]: Ronaldo,Lab SPEC TYPE: Surgical DEPT: [facility] ENTERED BY: [id number] RECV BY: [id number] ORDERED: HE/2, Gross/Micro L4 ORDERED: HE/2, Gross/Micro L4 Pathological Diagnosis Endometrial curettings: -Multiple small biopsy strips of benign endometrial polyps, including occasional mildly associated simple cystic hyperplasia without malignancy or atypia Clinical Information Postmenopausal bleeding Gross Description The specimen was received in formalin with the patient's name and endometrial curettings are multiple omalley-pink soft tissue fragments measuring 2.0 x 1.0 x 0.5 cm in aggregate. The specimen is entirely submitted in cassette A1. Microscopic Description Microscopic examinations are performed supporting the above interpretation -------- Specimen: [id number] Received: 06/07/24 Status: COLLEEN Carpio Num: [id number] Spec Type: Surgical Subm Dr: Liam Brown Tissues: A Endometrium - Curettings (ENDOMETRIAL CURRETTINGS) Procedures: /2, Omar/Beatris L4 -------- Patient: Hafsa Flores [id number] (Continued) -------- Specimen: [id number] Received: 06/07/24 (Continued) Signed (signature on file) Armin Alexander MD 06/10/24 1048 -------- Specimen: [id number] Received: 06/07/24 Status: COLLEEN Carpio Num: [id number] Spec Type: Surgical Subm Dr: Liam Brown Tissues: A Endometrium - Curettings (ENDOMETRIAL CURRETTINGS) Procedures: HE/2, Gross/Micro L4 -------- Patient: Hafsa Flores [id number] (Continued) -------- Specimen: [id number] Received: 06/07/24 (Continued) CPT Codes 24764 -------- -------- Specimen: [id number] Received: 06/07/24 Status: COLLEEN Carpio Num: [id number] Spec Type: Surgical Subm Dr: Liam Brown Tissues: A Endometrium - Curettings (ENDOMETRIAL CURRETTINGS) Procedures: HE/2, Gross/Micro L4 -------- Patient: Hafsa Flores [id number] (Continued) -------- Signed (signature on file) Armin Alexander MD 06/10/24 1048 Normal [facility] ALL CBC WITH AUTO DIFFon BASOPHILS ABSOLUTE AUTO 0.0 [facility] Basophils/100 WBC (Bld) 0.4 % 0.2 - 2.0 % [facility] Eosinophils/100 WBC (Bld) 1.0 % 0.9 - 7.0 % [facility] Erythrocyte distribution width (RBC) [Ratio] 13.1 % 11.0 - 15.0 % [facility] Hematocrit (Bld) [Volume fraction] 42.6 % 36.0 - 48.0 % [facility] Health[facility] e Hemoglobin (Bld) [Mass/Vol] 14.0 g/dL 12.0 - 16.0 g/dL [facility] IMMATURE GRANULOCYTES ABS AUTO 0.01 [facility] Immature granulocytes/100 WBC (Bld) 0.2 % 0.0 - 0.5 % [facility] Interpretation and review of laboratory results Abnormal [facility] LYMPHOCYTES ABSOLUTE AUTO 1.1 Low [facility] Lymphocytes/100 WBC (Bld) 21.1 % 20.5 - 60.0 % [facility] MCH (RBC) [Entitic mass] 28.4 pg 26.7 - 34.0 pg [facility] MCHC (RBC) [Mass/Vol] 32.9 g/dL 29.9 - 35.2 g/dL [facility] MCV (RBC) [Entitic vol] 86.4 fL 81.0 - 99.0 fL [facility] MONOCYTES ABSOLUTE AUTO 0.3 [facility] Monocytes/100 WBC (Bld) 6.7 % 1.7 - 12.0 % [facility] NEUTROPHILS ABSOLUTE AUTO 3.6 [facility] Neutrophils/100 WBC (Bld) 70.6 % 43.0 - 75.0 % [facility] Platelet mean volume (Bld) [Entitic vol] 9.5 fL 9.5 - 13.5 fL [facility] Healthc are TBH EO # 0.1 [facility] PLT 231 [facility] TB RBC 4.93 [facility] e TBH WBC 5.1 [facility] US PELVIS TRANSVAGINALon US PELVIS TRANSVAGINAL FINDINGS: [...] BY: Vinay Flores MD Normal Not Available Q - CULTURE,URINE,ROUTINEon 11-06-2021 CULTURE, URINE, ROUTINE SEE NOTE Normal [facility] Supervisor [employer] Comment on above: Order Comment: [facility] Testing performed at: [facility], [address] [place] [address], [address] [place] [address], [id number], Station Mechanic Helper: Dinh Ackerman MD [facility] Collection Date/Time: [id number] [facility] Results Received Date/Time: [id number] [facility] Reported Date/Time: FASTING: NO Result Comment: CULT URE, URINE, ROUTINE Micro Number: [id number] Test Status: Final Specimen Source: Urine Specimen Quality: Adequate Result: No Growth Performed By: #### 6 [id number] #### [facility] Default [address] [place] [address] [id number] 11-23-2020 SARS-CoV-2 Normal [facility] Comment on above: Performed By: #### C OVID #### [address] [id number] Card Checker: Timothy Bain MD SARS-CoV-2 DETECTED Abnormal NOTDET [facility] Comment on above: Result Comment: The specimen is POSITIVE for SARS-Cov-2, the novel coronavirus associated with COVID-19. Angi SARS-CoV-2 for use on the [employer] 6800/8800 [employer] is a real-time RT-PCR test intended [...] this assay. Fact sheet for Healthcare Providers: https://www.fda.gov/media/642165/download Fact sheet for Patients: https://www.fda.gov/media/285548/download METHODOLOGY: RT-PCR Results reported to the appropriate Health Department Performed By: #### C OVID #### [address] [id number] Card Checker: Timothy Bain MD [id number] 11-22-2020 SARS-CoV-2 Source .NASOPHARYNGEAL SWAB Normal [facility] Comment on above: Performed By: #### C OVID #### [employer] [id number] Card Checker: Timothy Bain MD [id number] 11-03-2020 SARS-CoV-2 Not Detected [facility] Comment on above: Result Comment: The specimen is NEGATIVE for SARS-CoV-2, the novel coronavirus associated with COVID-19. A negative result does not rule out COVID-19. Angi SARS-CoV-2 for use on the [employer] is a real-time RT-PCR test intended [...] this assay. Fact sheet for Healthcare Providers: https://www.fda.gov/media/058243/download Fact sheet for Patients: https://www.fda.gov/media/940748/download METHODOLOGY: RT-PCR Performed By: #### C OVID #### [address] [phone] Card Checker: Timothy Bain MD SARS-CoV-2 [facility] Comment on above: Performed By: #### C OVID #### [address] [id number] Card Checker: Timothy Bain MD SARS-CoV-2,Rapid [facility] Comment on above: Performed By: #### C OVID #### [address] [phone] Card Checker: Timothy Bain MD SARS-CoV-2 Source .NASOPHARYNGEAL SWAB [facility] Comment on above: Performed By: #### C OVID #### [facility] [employer] [address] [place] [address] [phone] Card Checker: Timothy Bain MD [id number] 10-22-2020 SARS-CoV-2 Not Detected [facility] Comment on above: Result Comment: The specimen is NEGATIVE for SARS-CoV-2, the novel coronavirus associated with COVID-19. A negative result does not rule out COVID-19. Angi SARS-CoV-2 for use on the [employer] is a real-time RT-PCR test intended [...] this assay. Fact sheet for Healthcare Providers: https://www.fda.gov/media/204010/download Fact sheet for Patients: https://www.fda.gov/media/676611/download METHODOLOGY: RT-PCR Performed By: #### C OVID #### [address] [id number] Card Checker: Timothy Bain MD SARS-CoV-2 [facility] Comment on above: Performed By: #### C OVID #### [facility] [employer] [address] [place] [address] [id number] Card Checker: Timothy Bain MD SARS-CoV-2,Rapid [facility] Comment on above: Performed By: #### C OVID #### [facility] [employer] [address] [place] [address] [id number] Card Checker: Timothy Bain MD [id number] 10-20-2020 SARS-CoV-2 Source .NASOPHARYNGEAL SWAB Normal [facility] Comment on above: Performed By: #### C OVID #### [facility] [employer] [address] [place] [address] Card Checker: Timothy Bain MD [id number] 10-07-2020 SARS-CoV-2 Not Detected Normal Not Detected [facility] Comment on above: Result Comment: (NOT E) This nucleic acid amplification test was developed and its performance characteristics determined by [employer]. Nucleic acid amplification tests include PCR and [...] detected) result in this assay. Performed At: [address] [id number] Ce Rogel PhD Ph:[phone] Performed By: #### A COV #### [facility] [address] [place], [place] [id number] Card Checker: Edmund Gerard MD [id number] 09-30-2020 SARS-CoV-2 Not Detected Normal Not Detected [facility] Comment on above: Result Comment: (NOT E) This nucleic acid amplification test was developed and its performance characteristics determined by [employer]. Nucleic acid amplification tests include PCR and [...] detected) result in this assay. Performed At: [facility] [address] [facility] [place] [id number] Lonnie Perera MD Ph:[phone] Performed By: #### A COV #### [facility] [address] [place] [address] Card Checker: Edmund Gerard MD [id number] 09-15-2020 SARS-CoV-2 Not Detected Normal Not Detected [facility] Comment on above: Result Comment: (NOT E) This nucleic acid amplification test was developed and its performance characteristics determined by [employer]. Nucleic acid amplification tests include PCR and [...] detected) result in this assay. Performed At: [facility] [address] [facility] [place] [id number] Lonnie Perera MD Ph:[phone] Performed By: #### A COV #### [facility] [address] [place], [place] [id number] Card Checker: Edmund Gerard MD [id number] 09-10-2020 SARS-CoV-2 Not Detected Normal Not Detected [facility] Comment on above: Result Comment: (NOT E) This nucleic acid amplification test was developed and its performance characteristics determined by [employer]. Nucleic acid amplification tests include PCR and [...] detected) result in this assay. Performed At: [facility] [address] [place], [place] [id number] Pierce Irasemasheree [facility] Ph:[phone] Performed By: #### A COV #### [facility] [address] [place] [address] Card Checker: Edmund Gerard MD [id number] 07-10-2020 SARS-CoV-2 Not Detected Normal Not Detected [facility] Comment on above: Result Comment: (NOT E) This nucleic acid amplification test was developed and its performance characteristics determined by [employer]. Nucleic acid amplification tests include PCR and [...] detected) result in this assay. Performed At: [facility] [address] [facility] [place] [id number] Lonnie Perera MD Ph:[phone] Performed By: #### A COV #### [facility] [address] [place] [address] Card Checker: Edmund Gerard MD Vital Signs Date Time Vital Sign Value Performing Clinician Charissa marroquin 09-23-2024 11:06-0500 Body height 162.6 cm Linda Diaz MD Work Phone: [facility] 09-23-2024 11:06-0500 Body mass index (BMI) [Ratio] 32.44 kg/m2 Linda Diaz MD Work Phone: [facility] 09-23-2024 11:06-0500 Body weight 85.73 kg Linda Diaz MD Work Phone: [facility] 09-23-2024 11:06-0500 Diastolic blood pressure 90 mm[Hg] Linda Diaz MD Work Phone: [facility] 09-23-2024 11:06-0500 Heart rate 71 /min Linda Diaz MD Work Phone: [facility] 09-23-2024 11:06-0500 SaO2% (BldA) [Mass fraction] 98 % Linda Diaz MD Work Phone: [facility] 09-23-2024 11:06-0500 Systolic blood pressure 142 mm[Hg] Linda Diaz MD Work Phone: [facility] 09-16-2024 09:14-0500 Body mass index (BMI) [Ratio] 32.12 kg/m2 Liam Stephanie DO Work Phone: [facility] 09-16-2024 09:14-0500 Body weight 84.88 kg Liam Stephanie DO Work Phone: [facility] 09-16-2024 09:14-0500 Diastolic blood pressure 84 mm[Hg] Liam Stephanie DO Work Phone: [facility] 09-16-2024 09:14-0500 Systolic blood pressure 124 mm[Hg] Liam Stephanie DO Work Phone: [facility] 08-03-2024 14:53-0500 Body mass index (BMI) [Ratio] 31.82 kg/m2 Liam Stephanie DO Work Phone: [facility] 08-03-2024 14:53-0500 Body weight 84.1 kg Liam Stephanie DO Work Phone: [facility] 08-03-2024 14:53-0500 Diastolic blood pressure 70 mm[Hg] Liam Stephanie DO Work Phone: [facility] 08-03-2024 14:53-0500 Systolic blood pressure 120 mm[Hg] Liam Stephanie DO Work Phone: [facility] 06-16-2024 14:11-0400 Body mass index (BMI) [Ratio] 31.43 kg/m2 Cathleen CASON Work Phone: [facility] 06-16-2024 14:11-0400 Body weight 83.06 kg Cathleen CASON Work Phone: [facility] 06-16-2024 14:11040 Diastolic blood pressure 70 mm[Hg] Cathleen CASON Work Phone: [facility] 06-16-2024 14:110400 Systolic blood pressure 120 mm[Hg] Cathleen CASON Work Phone: [facility] Healthcare Encounters Encounter Date Encounter Type Care Provider Facility Start: 10-09-2024 End: 10-09-2024 ambulatory NUZHAT Francois [facility] Start: 09-23-2024 End: 09-23-2024 Office outpatient visit 15 minutes Linda Diaz MD Work Phone: [facility] Comment on above: Preop cardiovascular exam (Primary Dx); Paroxysmal atrial fibrillation (CMS-HCC); Mild mitral regurgitation; Mild tricuspid regurgitation; Primary hypertension; Hyperlipidemia, unspecified hyperlipidemia type; Encounter for pre-operative cardiovascular clearance Start: 09-23-2024 End: 09-23-2024 Patient encounter status Linda Diaz MD Work Phone: [facility] Start: 09-23-2024 End: 09-23-2024 Preoperative state Linda Diaz MD Work Phone: [facility] Start: 09-23-2024 Encounter for preprocedural cardiovascular examination [facility] Start: 09-23-2024 End: 09-24-2024 Refill Lashell [facility]affer [facility] Comment on above: Med Refill Start: 09-21-2024 End: 09-21-2024 Telephone encounter Maegan Carter CMA [facility] Start: 09-16-2024 End: 09-16-2024 Bamboo flowsheet Liam Stephanie DO Work Phone: [facility] Start: 09-16-2024 End: 09-16-2024 Bamboo flowsheet Liam Stephanie DO Work Phone: [facility] Start: 09-16-2024 End: 09-16-2024 Office outpatient visit 15 minutes Liam Stephanie DO Work Phone: [facility] Comment on above: Preop examination; Post-menopausal bleeding; Pelvic pain in female; Dyspareunia in female; Dysmenorrhea Start: 09-16-2024 End: 09-16-2024 Preprocedural examination done Liam Stephanie DO Work Phone: [facility] Work Phone: Start: 09-16-2024 End: 09-16-2024 ambulatory LIAM STEPHANIE Not Available Start: 09-14-2024 End: 09-14-2024 Refill Nuzhat Mike MD Work Phone: [facility] Comment on above: Vitamin D deficiency Start: 09-08-2024 End: 09-09-2024 Refill Nuzhat Mike MD Work Phone: [facility] Comment on above: Gastroesophageal ref lux disease without esophagitis Start: 09-07-2024 End: 09-09-2024 Refill Urvashi Carr [employer] WORKER Work Phone: [facility] Comment on above: Gastroesophageal ref lux disease without esophagitis Start: 08-18-2024 End: 08-18-2024 Refill Bisi Carcamo [employer] WORKER Work Phone: [facility] Comment on above: Mixed dyslipidemia ( CMS/HCC) Start: 08-03-2024 End: 08-03-2024 Office outpatient visit 15 minutes Liam Stephanie DO Work Phone: [facility] Comment on above: Post-menopausal blee ding; Burning with urination Start: 08-03-2024 End: 08-03-2024 ambulatory LIAM STEPHANIE Not Available Start: 08-03-2024 End: 08-03-2024 Bamboo flowsheet Liam Stephanie DO Work Phone: [facility] Start: 08-03-2024 End: 08-03-2024 Bamboo flowsheet Liam Stephanie DO Work Phone: [facility] Start: 07-30-2024 End: 07-30-2024 Refill Bisi Carcamo [employer] WORK[employer] Work Phone: [facility] Comment on above: 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 Start: 07-16-2024 End: 07-16-2024 ambulatory [facility] Start: 07-13-2024 End: 07-13-2024 Phys/qhp telephone evaluation 5-10 min Liam Brown DO Work Phone: [facility] Comment on above: Post-menopausal blee ding Start: 06-16-2024 End: 06-16-2024 Postop follow up visit related to original px Cathleen CASON Work Phone: [facility] Comment on above: Postoperative examin ation Start: 06-16-2024 End: 06-16-2024 Bamboo flowsheet Cathleen Olea PA Work Phone: [facility] Start: 06-16-2024 End: 06-16-2024 Bamboo flowsheet Cathleen Olea PA Work Phone: [facility] Start: 06-16-2024 End: 06-16-2024 ambulatory CATHLEEN OLEA Not Available Start: 06-05-2024 End: 06-07-2024 Refill Bisi Carcamo [employer] WORK[employer] Work Phone: [facility] Comment on above: 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 Start: 06-04-2024 End: 06-04-2024 Clinisync Result Encounter Generic External Data Provider [facility] Unsolicited Start: 06-04-2024 End: 06-04-2024 Clinisync Result Encounter Generic External Data Provider [facility] External [facility] Unsolicited Start: 06-04-2024 End: 06-04-2024 ambulatory PHYSICIAN NO [facility] Work Phone: Start: 06-04-2024 End: 06-04-2024 Departed Referred PHYSICIAN NO [facility] Path [facility] Start: 06-02-2024 End: 06-02-2024 ambulatory PHILIPP Wilkerson SAJI [facility] Start: 05-24-2024 End: 05-24-2024 Clinisync Result Encounter Generic External Data Provider [facility] External Department Unsolicited Start: 05-24-2024 End: 05-24-2024 Clinisync Result Encounter Generic External Data Provider [facility] External [facility] Unsolicited Start: 05-05-2024 End: 05-05-2024 ambulatory LIAM STEPHANIE Not Available Start: 04-29-2024 End: 04-29-2024 ambulatory BISI A CARCAMO Not Available Start: 04-07-2024 End: 04-07-2024 ambulatory LIAM STEPHANIE Not Available Start: 03-17-2024 End: 03-17-2024 ambulatory [facility] Start: 03-17-2024 End: 03-17-2024 ambulatory [facility] Start: 03-15-2024 End: 03-15-2024 ambulatory ADALID L FLORO Not Available Start: 03-04-2024 End: 03-04-2024 ambulatory BISI CARCAMO Not Available Start: 03-02-2024 End: 03-02-2024 ambulatory [facility] Start: 02-16-2024 End: 02-16-2024 ambulatory BISI A CARCAMO Not Available Start: 02-16-2024 End: 02-16-2024 ambulatory ADALID L FLORO Not Available Start: 01-29-2024 End: 01-29-2024 ambulatory BISI A CARCAMO Not Available Start: 01-22-2024 End: 01-22-2024 ambulatory BISI CARCAMO Not Available Start: 01-20-2024 End: 01-20-2024 ambulatory BISI A CARCAMO Not Available Start: 10-29-2023 Telephone encounter Halima IRVINS [facility] Start: 10-28-2023 End: 10-28-2023 ambulatory BISI A CARCAMO Not Available Start: 11-22-2020 End: 11-23-2020 Patient encounter procedure [facility]ZZ [facility] Start: 11-22-2020 End: 11-22-2020 Subsequent hospital visit by physician VALDEMAR BLACKMON Start: 11-02-2020 End: 11-03-2020 Patient encounter procedure SOHAILBrittaney MORGAN [facility] Start: 11-02-2020 End: 11-02-2020 Subsequent hospital visit by physician VALDEMAR BLACKMON Start: 10-19-2020 End: 10-20-2020 Patient encounter procedure SOHAILBrittaney MORGAN [facility] Start: 10-19-2020 End: 10-19-2020 Subsequent hospital visit by physician VALDEMAR BLACKMON Start: 10-05-2020 End: 10-06-2020 Patient encounter procedure SOHAILJAZZ MORGAN [facility] Start: 10-05-2020 End: 10-05-2020 Subsequent hospital visit by physician VALDEMAR BLACKMON Start: 09-27-2020 End: 09-28-2020 Patient encounter procedure SOHAILJAZZ MORGAN [facility] Start: 09-27-2020 End: 09-27-2020 Subsequent hospital visit by physician VALDEMAR BLACKMON Start: 09-14-2020 End: 09-15-2020 Patient encounter procedure SOHAILJAZZ MORGAN [facility] Start: 09-14-2020 End: 09-14-2020 Subsequent hospital visit by physician VALDEMAR BLACKMON Start: 09-07-2020 End: 09-08-2020 Patient encounter procedure SOHAILBrittaney MORGAN [facility] Start: 09-07-2020 End: 09-07-2020 Subsequent hospital visit by physician VALDEMAR BLACKMON Start: 08-31-2020 End: 09-01-2020 Patient encounter procedure SOHAILBrittaney MORGAN [facility] Start: 08-31-2020 End: 08-31-2020 Subsequent hospital visit by physician VALDEMAR BLACKMON Start: 08-16-2020 End: 08-17-2020 Patient encounter procedure SOHAILBrittaney MORGAN [facility] Start: 08-16-2020 End: 08-16-2020 Subsequent hospital visit by physician [facility]DEMAR [facility] Start: 07-10-2020 Patient encounter procedure NUZHAT MIKE Facility:[facility] Start: 07-07-2020 End: 07-08-2020 Patient encounter procedure TOM MORGAN [facility] Start: 07-07-2020 End: 07-07-2020 Subsequent hospital visit by physician VALDEMAR [facility] Procedures Date Procedure Procedure Detail Performing Clinician Start: 09-23-2024 Ecg routine ecg w/le ast 12 lds w/i&r Linda Diaz MD Work Phone: Start: 08-03-2024 Urnls dip stick/tabl et rgnt non-auto w/o micrscp Liam Stephanie DO Work Phone: Start: 07-19-2024 Mammography Bisi hunt NP Work Phone: Start: 06-04-2024 ALL CBC WITH AUTO DIFF Liam Stephanie DO Work Phone: Start: 06-02-2024 Follow-up visit Follow-up PHILIPP LENNON Start: 05-24-2024 ALL CBC WITH AUTO DIFF Liam Stephanie DO Work Phone: Start: 02-16-2024 Microscopic observat ion [Identifier] in Cervix by Cyto stain Generic Provider Start: 04-21-2023 Mammography Halima Viveros MA Start: 09-14-2020 COVID-19 AMBULATORY TAIWO S MORGAN Start: 09-07-2020 COVID-19 AMBULATORY TAIWO S MORGAN Start: 08-31-2020 COVID-19 AMBULATORY TAIWO S MORGAN Start: 08-16-2020 COVID-19 AMBULATORY TAIWO S MORGAN Start: 07-07-2020 COVID-19 AMBULATORY TAIWO S MORGAN Start: 01-31-2014 Colonoscopy Halima Viveros MA Plan of Treatment Date Care Activity Detail Author Start: 02-15-2029 Screening for malign ant neoplasm of cervix [facility] Start: 07-03-2027 Screening for malign ant neoplasm of cervix [facility] Start: 02-15-2027 Screening for malign ant neoplasm of cervix Pap Smear [facility] Start: 03-05-2026 Glaucoma screening Diabetes: R etinopathy Screening [facility] Start: 09-23-2025 Adult BMI Screening Adult BMI Screen ing [facility] Start: 09-23-2025 Tobacco Screening Tobacco Screening [facility] Start: 07-19-2025 Screening for malign ant neoplasm of breast Mammogram [facility] Start: 06-02-2025 Adult BMI Screening Adult BMI Screen ing [facility] Start: 06-02-2025 Tobacco Screening Tobacco Screening [facility] Start: 03-07-2025 End: 03-07-2025 Patient encounter procedure 03/07/2025 10:00 AM EDT Office Visit [facility] [address] [facility] [address] [place] [address] Charles Frye MD [address] [place] [address] [facility] Start: 01-19-2025 Urine screening for protein Diabetes: Urine Protein Screening [facility] Start: 09-23-2024 End: 09-23-2024 Patient encounter procedure 09/23/2024 11:15 AM EST Office Visit [facility] [address] [facility] [address] [place] [address] Linda Diaz MD [address] [place] [address] [facility] Start: 09-16-2024 End: 09-16-2024 Patient encounter procedure [facility] Comment on above: Arrived Start: 08-03-2024 End: 08-03-2024 Patient encounter procedure [facility] Comment on above: Arrived Start: 06-16-2024 End: 06-16-2024 Patient encounter procedure 06/16/2024 2:10 PM EDT [facility] [address] [facility] [place] [address] Cathleen Olea PA [address] [place] [address] Arrived [facility] Comment on above: Arrived Start: 06-04-2024 End: 06-04-2024 Patient encounter procedure 06/04/2024 7:30 AM EDT Procedure Visit [facility] Liam Brown DO [address] [place] [address] [facility] Start: 05-30-2024 COVID-19 Vaccine ( season) COVID-19 Vaccine () [facility] Start: 05-30-[address] [facility] Start: 04-21-2024 Screening for malign ant neoplasm of breast Mammogram [facility] Start: 04-20-2024 Hemoglobin A1c measurement Diabetes: Hemoglobin A1C [facility] Start: 02-01-2024 Screening for malign ant neoplasm of colon [facility] Start: 01-23-2024 Urine screening for protein Diabetes: Urine Protein Screening [facility] Start: 01-20-2024 End: 01-20-2024 Patient encounter procedure 01/20/2024 2:00 PM EDT Office Visit [facility] [address] [place] [id number] Bisi Carcamo NP [address] [place] [address] [facility] Start: 12-06-2023 Glaucoma screening Diabetes: R etinopathy Screening [facility] Start: 04-23-2023 Hemoglobin A1c measurement Diabetes: Hemoglobin A1C [facility] Start: 03-05-2022 DTaP,Tdap and Td Vac cines (2 - Td or Tdap) DTaP,Tdap and Td Vaccines (2 - Td or Tdap) [facility] Start: 05-30-2020 Influenza vaccination Flu vaccine (# 1) [facility] [place] Start: 2012 Administration of varicella zoster vaccine Zoster (Shingles) Vaccine (1 of 2) [facility] Start: 2012 Screening for malign ant neoplasm of breast Breast cancer screen [place], [place] Start: 2012 Screening for malign ant neoplasm of colon Colon cancer screen colonoscopy [place], [place] Start: 2012 Shingles Vaccine (1 of 2) Gomez gles Vaccine (1 of 2) [place], [place] Start: 2002 Lipid panel Lipid screen [place], [place] Start: 1983 Screening for malign ant neoplasm of cervix [facility] Start: 1981 DTaP/Tdap/Td vaccine (1 - Tdap) DTaP/Tdap/Td vaccine (1 - Tdap) [place], [place] Start: 1980 Adult BMI Follow Up Plan Adult BMI Follow Up Plan [facility] Start: 1977 HIV screening HIV screen [place], [place] Start: 1974 [facility] Start: 1962 Hepatitis C screening Hepatitis C sc reen [place], [place] Start: 1962 Screening for malign ant neoplasm of colon [facility] End: 10-19-2020 COVID-19 COVID-19 Lab Routine Once for 1 Occurrences starting 10/19/2020 until 10/19/2020 [place] Comment on above: Once for 1 Occurrenc es starting 10/19/2020 until 10/19/2020 COVID-19 [place], [place] End: 11-02-2020 COVID-19 COVID-19 Lab Routine Once for 1 Occurrences starting 11/02/2020 until 11/02/2020 [place] Comment on above: Once for 1 Occurrenc es starting 11/02/2020 until 11/02/2020 End: 11-22-2020 COVID-19 COVID-19 Lab Routine Once for 1 Occurrences starting 11/22/2020 until 11/22/2020 [facility] Work Phone: Comment on above: Once for 1 Occurrenc es starting 11/22/2020 until 11/22/2020 End: 07-07-2020 Covid-19 Ambulatory Covid-19 Ambulatory Lab Routine Once for 1 Occurrences starting 07/07/2020 until 07/07/2020 [facility] [place] Comment on above: Once for 1 Occurrenc es starting 07/07/2020 until 07/07/2020 Covid-19 Ambulatory [facility] [place] End: 09-07-2020 Covid-19 Ambulatory Covid-19 Ambulatory Lab Routine Once for 1 Occurrences starting 09/07/2020 until 09/07/2020 [facility] [place] Comment on above: Once for 1 Occurrenc es starting 09/07/2020 until 09/07/2020 End: 09-14-2020 Covid-19 Ambulatory Covid-19 Ambulatory Lab Routine Once for 1 Occurrences starting 09/14/2020 until 09/14/2020 [place] Comment on above: Once for 1 Occurrenc es starting 09/14/2020 until 09/14/2020 End: 09-27-2020 Covid-19 Ambulatory Covid-19 Ambulatory Lab Routine Once for 1 Occurrences starting 09/27/2020 until 09/27/2020 [facility] [place] Comment on above: Once for 1 Occurrenc es starting 09/27/2020 until 09/27/2020 End: 10-05-2020 Covid-19 Ambulatory Covid-19 Ambulatory Lab Routine Once for 1 Occurrences starting 10/05/2020 until 10/05/2020 [place] Comment on above: Once for 1 Occurrenc es starting 10/05/2020 until 10/05/2020 End: 08-16-2020 Covid-19 Ambulatory Covid-19 Ambulatory Lab Routine Once for 1 Occurrences starting 08/16/2020 until 08/16/2020 [facility] [place] Comment on above: Once for 1 Occurrenc es starting 08/16/2020 until 08/16/2020 End: 08-31-2020 Covid-19 Ambulatory Covid-19 Ambulatory Lab Routine Once for 1 Occurrences starting 08/31/2020 until 08/31/2020 [facility] [place] Comment on above: Once for 1 Occurrenc es starting 08/31/2020 until 08/31/2020 End: 09-23-2025 Lipid 1996 panel - Serum or Plasma Lipid profile Lab Routine Primary hypertension 1 Occurrences starting 09/23/2024 until 09/23/2025 [facility] Work Phone: Comment on above: 1 Occurrences starti ng 09/23/2024 until 09/23/2025 Immunizations Immunization Date Immunization Notes Care Provider Prosepr ruiz 07-24-2023 influenza, injectabl e, quadrivalent, preservative free Halima Altamiranoraddayana KNOWLES [facility] 07-24-2023 influenza virus vacc ine, unspecified formulation Generic Provider [facility] 06-11-2022 influenza, injectabl e, quadrivalent, preservative free Generic Provider [facility] 09-07-2020 influenza, high dose seasonal, preservative-free Generic Provider [facility] 09-30-2019 Influenza, injectabl e, Madin Phoenix Canine Kidney, preservative free, quadrivalent Generic Provider [facility] 07-07-2019 Seasonal, quadrivale nt, recombinant, injectable influenza vaccine, preservative free Generic Provider [facility] 09-14-2018 influenza, injectabl e, quadrivalent, preservative free Generic Provider [facility] 06-29-2017 influenza, injectabl e, quadrivalent, contains preservative Generic Provider [facility] 08-03-2015 influenza, seasonal, injectable, preservative free Generic Provider [facility] 03-05-2012 tetanus toxoid, redu alyx diphtheria toxoid, and acellular pertussis vaccine, adsorbed Generic Provider [facility] Payers Date Payer Category [facility] [id number] 2020 [id number] 2020-Present [phone] [address] [place] [address] [id number]. [id number] 2010 [employer] Blue Shie ld Managed Care - Other ANTH [id number]. 2.7.9.415254.505.315 2010 Unknown [id number] 1.2.840.430851.1.13.239. 2.7.3.679415.315 1962 Unknown [id number] 2.16.840.1.403629.3.579. 2.593 1962 Unknown [id number] 2.16.840.1.510226.3.579. 2.175 1962 Unknown [id number] 2.16.840.1.018835.3.579. 2.175 1962 Unknown [id number] 2.16.840.1.201662.3.579. 2.175 1962 Unknown [id number] 2.16.840.1.970054.3.579. 2.175 1962 Unknown [id number] 2.16.840.1.207585.3.579. 2.175 1962 Unknown [id number] 2.16.840.1.382442.3.579. 2.1259 1962 Unknown [id number] 2.16.840.1.094958.3.579. 2.1259 1962 Unknown [id number] 2.16.840.1.373035.3.579. 2.1259 1962 Unknown [id number] 2.16.840.1.684510.3.579. 2.1258 1962 Unknown [id number] 2.16.840.1.988926.3.579. 2.1258 1962 Unknown [id number] 2.16.840.1.127014.3.579. 2.1258 1962 Unknown [id number] 2.16.840.1.472004.3.579. 2.1258 1962 Unknown [id number] 2.16.840.1.146266.3.579. 2.1258 1962 Unknown [id number] 2.16.840.1.129785.3.579. 2.1258 1962 Unknown [id number] 2.16.840.1.833246.3.579. 2.1258 1962 Unknown [id number] 2.16.840.1.203417.3.579. 2.1258 1962 Unknown [id number] 2.16.840.1.576463.3.579. 2.1258 1962 Unknown [id number] 2.16.840.1.107949.3.579. 2.1258 1962 Unknown [id number] 2.16.840.1.538687.3.579. 2.1258 1962 Unknown [id number] 2.16.840.1.558985.3.579. 2.1286 1962 Unknown [id number] 2.16.840.1.323944.3.579. 2.1285 1962 Unknown [id number] 2.16.840.1.885832.3.579. 2.128 1962 Unknown [id number] 2.16.840.1.672053.3.579. 2.1285 1962 Unknown [id number] 2.16.840.1.549465.3.579. 2.1286 1962 Unknown [id number] 2.16.840.1.559772.3.579. 2.1286 1962 Unknown [id number] 2.16.840.1.696484.3.579. 2.1286 1962 Unknown [id number] 2.16.840.1.620229.3.579. 2.1286 1962 Unknown [id number] 2.16.840.1.107856.3.579. 2.1286 1962 Unknown [id number] 2.16.840.1.607634.3.579. 2.1286 1959 Self-pay Unknown [id number] 2.16.840.1.596709.3.579. 2.531 Social History Date Type Detail Facility [facility] [place] Start: 1960 Sex Assigned At Not on file [place], [place] Start: 10-28-2022 End: 07-10-2023 Tobacco smoking status [facility] Never smoked tobacco [facility] Start: 10-28-2022 End: 07-10-2023 Tobacco use and exposure Smokeless tobacco non-user [facility] Start: 10-28-2023 End: 09-23-2024 Alcohol intake Current drinker of alcohol (finding) [facility] Start: 11-01-2020 End: 10-28-2023 History of Social function [facility] Start: 11-01-2020 End: 10-28-2023 Tobacco use panel [facility] Start: 07-10-2023 Alcohol Comment Alcohol: 1 or 2 drinks on a typical day/monthly or less Caffeine: 1-2 cups/day soda/pop [facility] Start: 1960 Sex Assigned At Female [facility] Start: 06-16-2024 End: 09-16-2024 Alcoholic beverage intake Ex-drinker (finding[facility] Do you belong to any clubs or organizations such as zoroastrian groups, unions, fraternal or athletic groups, or school groups? No [facility] Attends Club or Organization Meetings Not on file [facility] Are you now , , , , never or living with a partner? Living with partner [facility] How often to you hav e a drink containing alcohol? Monthly or less [facility] How many standard dr inks containing alcohol do you have on a typical day? 1 or 2 [facility] How often do you hav e 6 or more drinks on 1 occasion? Never [facility] Do you feel stress - tense, restless, nervous, or anxious, or unable to sleep at night because your mind is troubled all the time - these days [OSQ] To some extent [facility] (I/We) worried wheth er (my/our) food would run out before (I/we) got money to buy more. Never true [facility] Start: 01-20-2024 Alcohol Comment Caffeine: 1-2 cups/day soda/pop [facility] History of tobacco use Passive smoker [facility] Start: 10-28-2022 Alcohol Comment occasional social [facility] Start: 05-04-2015 Sex Female (finding) [facility] Medical Equipment Procedure Code Equipment Code Equipment Origin al Text Equipment Identifier Dates Cement Bn Bio 40 gm Rpl [id number] - [id number] Start: 11-06-2022 Cement Bn Bio 40 gm Rpl [id number] - [id number] Start: 11-06-2022 Component Fem 9 Randy Kn Lt Crcte Rtn Cmnt Persona Cocr - [id number] Start: 11-06-2022 Stem Xtn 30+ Mm 14mm Persona Tpr Kn Tib - [id number] Start: 11-06-2022 Component Ptlr 3 2mm Persona Alply Kn Strl Lf - [id number] Start: 11-06-2022 Insert Artc 8-9 C-D 10mm Kn Lt Vivacit-E Persona Strl - [id number] Start: 11-06-2022 Baseplate Tib 5d D Kn Lt Cmnt Stm Persona Tiv Strl - [id number] Start: 11-06-2022 Goals Date Patient Goal Desired Activity /State Personal health goal Comment on above: Formatting of this n ote might be different from the original. Evaluation of progress towards goal: Maximize work with PT at discharge to strengthen L KNEE Clinical Notes 10-29-2023 to 09-23-2024 Telephone Encounter - Lashell Shaffer RN - 09/23/2024 2:03 PM ESTTelephone Encounter - Lashell Shaffer RN - 09/23/2024 2:03 PM Boris Diaz MD - 09/23/2024 11:15 AM EST Note Date & Type Note Facility 09-23-2024 Miscellaneous Notes Last OV 09/23/24 Last CBC 10/28/22.slm documented in this encounter [facility] [place] 09-23-2024 Telephone encounter Note Last OV 09/23/24 Last CBC 10/28/22.slm [facility] 09-23-2024 History of Presen t illness Narrative Hafsa Steward Mark Date of visit: 09/23/2024 Date of : 1960 Age: 64 y.o. Patient Active Problem List Diagnosis Nephrolithiasis Hematuria, microscopic Renal cyst Gastroesophageal reflux disease Pain in throat Bilateral primary osteoarthritis of knee Anxiety Chronic eczematous otitis externa of both ears Class 1 obesity Essential hypertension Hyperlipidemia Irregular periods Menopausal and female climacteric states Mitral valve prolapse Vitamin D deficiency Primary osteoarthritis of left knee Palpitations Nausea without vomiting Allergies Allergen Reactions Cortisone Anxiety Current Outpatient Medications Medication Sig Dispense Refill apixaban (ELIQUIS) 5 mg tablet Take 1 tablet (5 mg total) by mouth in the morning and 1 tablet (5 mg total) before bedtime. 60 tablet 6 cholecalciferol, vitamin D3, 2,000 units tablet Take 1 tablet (2,000 Units total) by mouth in the morning. Indications: low vitamin D levels, prevention of vitamin D deficiency. cranberry extract 650 mg capsule Take 650 mg by mouth in the morning. dexlansoprazole (DEXILANT) 60 mg capsule Take by mouth daily with dinner Indications: gastroesophageal reflux disease. metoprolol succinate XL (TOPROL XL) 50 mg 24 hr tablet Take 1 tablet (50 mg total) by mouth in the morning and 1 tablet (50 mg total) before bedtime. Indications: high blood pressure. 180 tablet 3 rosuvastatin (CRESTOR) 5 mg tablet Take by mouth daily Indications: excessive fat in the blood. No current facility-administered medications for this visit. Chief Complaint Patient presents with Palpitations Atrial Fibrillation Follow-up 3 month Pre-op Exam Preop clearance 10/21/2024 Dr Brown hysterectomy fax [phone] History of Present Illness Patient here for follow-up visit. Requesting cardiac clearance for planned hysterectomy procedure coming up in the near future. Stated that she was diagnosed with a precancer cells. Patient with history of paroxysmal atrial fibrillation, type 2 diabetes mellitus, hypertension, hyperlipidemia. Stated that overall she is doing well. 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 Denied any associated cardiac symptoms while on the job. Able to do home chores including cleaning the house, grocery shopping caring grocery loads with no difficulty. Denied any episodes of chest pain or shortness of breath or palpitations or dizziness orthopnea or edema. No syncope or presyncope. No tobacco use. Occasionally drinks alcohol in moderation. No recreational drug use. Past Medical History: Diagnosis Date Allergic Childhood Anxiety 07/19/2020 no medications Chronic ear infection evonne Chronic eczematous otitis externa of both ears 04/26/2021 COVID-19 11/22/2020 no hospital stay Diabetes mellitus, type 2 ([facility]) no medications-diet controlled Gastritis 2015 GERD (gastroesophageal reflux disease) Headache Hematuria, microscopic 12/2014 small stone found no treatment Hyperlipidemia 11/03/2020 Hypertension Mitral valve prolapse 07/19/2020 Nephrolithiasis 01/2015 no treatment Obesity Palpitations Primary osteoarthritis of left knee Vitamin D deficiency 07/09/2022 No data recorded No data recorded No data recorded Past Surgical History: Procedure Laterality Date SECTION 1992 SECTION 1996 COLONOSCOPY 01/31/2014 normal CYSTOSCOPY 02/15/2015 for micorscopic hematuria ESOPHAGOGASTRODUODENOSCOPY 11/20/2015 gastritis REPLACEMENT TOTAL JOINT KNEE Left 11/06/2022 Performed by Charles Frye MD at [facility] SKIN BIOPSY 2021 TONSILLECTOMY 1972 childhood TUBAL LIGATION 1996 Family History Problem Relation Age of Onset Arthritis Mother Depression Mother Multiple myeloma Mother Pancreatic cancer Father Skin cancer Sister Mental illness Brother Asthma Son Heart disease Maternal Grandmother Heart disease Maternal Grandfather Heart disease Paternal Grandmother Uterine cancer Paternal Grandmother Heart disease Paternal Grandfather Breast cancer Neg Hx Anesthesia problems Neg Hx Social History Socioeconomic History Marital status: Spouse name: Not on file Number of children: Not on file Years of education: Not on file Highest education level: Not on file Occupational History Not on file Tobacco Use Smoking status: Never Passive exposure: Past Smokeless tobacco: Never Vaping Use Vaping status: Never Used Substance and Sexual Activity Alcohol use: Yes Comment: occasional social Drug use: Never Sexual activity: Defer Other Topics Concern Caffeine Use Yes Social History Narrative Not on file Social Drivers of Health Financial Resource Strain: Low Risk (01/19/2024) Received from [facility] Overall Financial Resource Strain (CARDIA) Difficulty of Paying Living Expenses: Not hard at all Food Insecurity: No Food Insecurity (09/23/2024) Hunger Screening Food Insecurity - Worry: Never True Food Insecurity - Inability: Never True Transportation Needs: No Transportation Needs (01/19/2024) Received from [facility] PRAPARE - Transportation Lack of Transportation (Medical): No Lack of Transportation (Non-Medical): No Physical Activity: Insufficiently Active (01/19/2024) Received from [facility] Exercise Vital Sign Days of Exercise per Week: 2 days Minutes of Exercise per Session: 20 min Stress: Stress Concern Present (01/19/2024) Received from [facility] [place] [employer] - Occupational Stress Questionnaire Feeling of Stress : To some extent Social Connections: Moderately Integrated (01/19/2024) Received from [facility] Social Connection and Isolation Panel [NHANES] Frequency of Communication with Friends and Family: Once a week Frequency of Social Gatherings with Friends and Family: More than three times a week Attends Jain Services: 1 to 4 times per year Active Member of Clubs or Organizations: No Attends Club or Organization Meetings: Not on file Marital Status: Living with partner Interpersonal Safety: Not on file Housing Instability: Unknown (01/19/2024) Received from [facility] Housing Stability Vital Sign Unable to Pay for Housing in the Last Year: No Number of Places Lived in the Last Year: Not on file Unstable Housing in the Last Year: No Review of Systems Review of Systems Respiratory: Negative for cough, hemoptysis and wheezing. Gastrointestinal: Negative for abdominal pain, change in bowel habit and hematochezia. Genitourinary: Negative for dysuria and hematuria. Neurological: Negative for focal weakness, headaches and paresthesias. CARDIOVASCULAR: Please review HPI. Physical Examination General appearance: Alert, oriented and cooperative. In no acute distress. Skin: Warm and dry to touch. Head: Normocephalic, without obvious abnormality, atraumatic. Ears, Nose, Mouth, Throat: Throat clear without erythema or exudate. Dentition intact. Eyes: Conjunctivae unremarkable, EOM intact. Neck: No JVD, No carotid bruit. Neck supple, trachea midline. Respiratory: Clear to auscultation bilaterally, no use of accessory muscles. Cardiovascular: RRR with normal S1 and S2 with no murmurs. Gastrointestinal: Soft, non-tender. Bowel sounds normal. Musculoskeletal: No peripheral edema. Neurologic: Oriented to time, person and place, affect appropriate. No focal/major motor defects noted. Psychiatric: Appropriate mood, memory and judgement. VITAL SIGNS: BP 142/90 (BP Site: Left Arm, BP Postition: Sitting) Pulse 71 Ht 162.6 cm (5' 4 ) Wt 85.7 kg (189 lb) SpO2 98% BMI 32.44 kg/m No orders of the defined types were placed in this encounter. There are no discontinued medications. IMPRESSIONS/PLAN 1. Paroxysmal atrial fibrillation (CMS-HCC) - POCT EKG 2. Mild mitral regurgitation - POCT EKG 3. Mild tricuspid regurgitation - POCT EKG 4. Primary hypertension - POCT EKG - Lipid profile; Future 5. Hyperlipidemia, unspecified hyperlipidemia type - POCT EKG 6. Preop cardiovascular exam - POCT EKG 7. Encounter for pre-operative cardiovascular clearance Previous cardiac related labs and test results were reviewed and discussed with the patient. Preoperative cardiovascular risk assessment Paroxysmal atrial fibrillation on Eliquis Paroxysmal SVT Negative SPECT MPI 02/2024 Normal EF TTE 02/2024 Mild MR, mild TR Hypertension Hyperlipidemia Type 2 diabetes mellitus Obesity, BMI 32 Patient here for follow-up visit. Requesting preoperative cardiovascular risk assessment and clearance for planned hysterectomy procedure. Patient at low risk for perioperative cardiovascular complications. Okay to hold Eliquis for 2-3 days prior to procedure and resume when cleared afterwards. Routine lipid function test ordered today. Will follow-up on results with recommendations as needed. No changes in his medications. Follow-up in 6 months or sooner if needed. Patient to call us with any cardiac questions or concerns. TODAYS ORDERS Orders Placed This Encounter Procedures Lipid profile POCT EKG FOLLOW UP Return in about 6 months (around 2025). PCP: uNzhat Mike MD Referring Physician: Nuzhat Mike MD [address] [place] [address] documented in this encounter [facility] 09-21-2024 Miscellaneous Notes Left message for patient to remind them to bring their most current medication list with them to their appointment. documented in this encounter [facility] 09-21-2024 Telephone encounter Note Left message for patient to remind them to bring their most current medication list with them to their appointment. [facility] 09-16-2024 History of Presen t illness Narrative Reason for Appointment: Patient ID: Hafsa Flores is a 64 y.o. female who presents for Pre-op Visit Patient presents today for Pre Op appointment. Patient is scheduled to undergo Da David assisted Laparoscopic Hysterectomy, possible exploratory laparotomy, possible BSO, possible cystoscopy on 10/21/[address] Brown at [facility]. MEDICATIONS Current Outpatient Medications Medication Instructions cholecalciferol (Vitamin D-3) 50 MCG (1999) tablet Oral, Daily Cranberry (Cran-Max) 500 MG capsule Orally dexlansoprazole (DEXILANT) 60 mg, Oral, Daily Eliquis 5 mg, 2 times daily fluocinolone (DermOtic) 0.01 % ear drops 5 drops, Each Ear, 2 times daily metoprolol succinate XL (TOPROL-XL) 50 mg, 2 times daily rosuvastatin (CRESTOR) 5 mg, Oral, Daily ALLERGIES Allergies Allergen Reactions Cortisone Anxiety PROBLEMS Active Ambulatory Problems Diagnosis Date Noted Primary hypertension ([facility]) 11/28/2016 Anxiety 07/19/2020 Chronic eczematous otitis externa of both ears 04/26/2021 Gastro-esophageal reflux disease without esophagitis 01/20/2024 Hematuria, microscopic 11/10/2017 Hyperlipidemia ([facility]) 11/03/2020 Irregular periods 08/06/2015 Menopausal and female climacteric states 05/04/2017 Mitral valve prolapse 07/19/2020 Class 1 obesity 07/09/2022 Palpitations 01/20/2024 Primary osteoarthritis of both knees 07/09/2022 Type 2 diabetes mellitus without complication (CMS/HCC) 01/20/2024 Vitamin D deficiency 07/09/2022 Resolved Ambulatory Problems Diagnosis Date Noted Mixed dyslipidemia (CMS/HCC) 07/24/2023 Osteoarthritis of left knee 07/09/2022 Vaginal yeast infection 07/29/2023 Need for vaccination 07/29/2023 Nausea without vomiting 11/06/2022 Nephrolithiasis 11/10/2017 Pain in throat 05/20/2019 Jennifer-menopause 01/20/2024 Past Medical History: Diagnosis Date Atrial fib/flutter, transient (CMS/HCC) Chronic ear infection GERD (gastroesophageal reflux disease) Hypertension (CMS/HCC) HISTORY PAST MEDICAL HISTORY SOCIAL HISTORY Past Medical History: Diagnosis Date Atrial fib/flutter, transient (CMS/HCC) Chronic ear infection GERD (gastroesophageal reflux disease) Hypertension (CMS/HCC) Mitral valve prolapse Social History Tobacco Use Smoking status: Never Smokeless tobacco: Never Substance Use Topics Alcohol use: Not Currently Comment: Caffeine: 1-2 cups/day soda/pop Drug use: Never FAMILY HISTORY Family History Problem Relation Name Age of Onset Cancer Mother Pancreatic cancer Father SURGICAL HISTORY Past Surgical History: Procedure Laterality Date SECTION, LOW TRANSVERSE 1992, 1996 DILATION AND CURETTAGE OF UTERUS 06/04/2024 HYSTEROSCOPY 06/04/2024 JOINT REPLACEMENT Left 11/06/2022 total knee replacement TONSILLECTOMY 1972 TUBAL LIGATION 1996 REVIEW OF SYSTEMS Review of Systems: Review of Systems Constitutional: Negative. HENT: Negative. Eyes: Negative. Respiratory: Negative. Cardiovascular: Negative. Gastrointestinal: Negative. Genitourinary: Positive for dyspareunia, pelvic pain and vaginal bleeding. Musculoskeletal: Negative. Skin: Negative. Neurological: Negative. All other systems reviewed and are negative. Hematological: Negative. Endocrine: Negative. Allergic/Immunologic: Negative. OBJECTIVE Objective: Physical Exam Constitutional: Appearance: Normal appearance. She is well-developed. Cardiovascular: Rate and Rhythm: Normal rate and regular rhythm. Pulmonary: Effort: Pulmonary effort is normal. Breath sounds: Normal breath sounds. Abdominal: General: Bowel sounds are normal. There is no distension. Palpations: Abdomen is soft. Tenderness: There is no abdominal tenderness. There is no guarding or rebound. Musculoskeletal: General: No swelling. Normal range of motion. Right lower leg: No edema. Left lower leg: No edema. Neurological: Mental Status: She is alert and oriented to person, place, and time. Skin: General: Skin is warm and dry. Psychiatric: Mood and Affect: Mood normal. Behavior: Behavior normal. Vitals and nursing note reviewed. Exam conducted with a darkroom technician present. Vitals: Estimated body mass index is 32.12 kg/m as calculated from the following: Height as of 04/07/24: 5' 4 . Weight as of this encounter: 187 lb 1.9 oz. BP: 124/84 No LMP recorded. Patient is postmenopausal. ASSESSMENT & PLAN ICD-10-CM 1. Preop examination Z01.818 2. Post-menopausal bleeding N95.0 3. Pelvic pain in female R10.2 4. Dyspareunia in female N94.10 5. Dysmenorrhea N94.6 Pre Op: Patient is doing well but has complaints of pelvic pain and post menopausal bleeding. I have discussed conservative management vs. surgical management with the patient in detail and patient desires surgical management at this time. Patient will undergo Da David assisted Laparoscopic Hysterectomy, possible exploratory laparotomy, possible BSO, possible cystoscopy on 10/21/2024. Surgical consents were signed, mmc was reviewed, and patient is to proceed to [facility] OR. Follow Up: Patient is to follow up at 1 & 6 weeks post operative to assess proper healing and recovery from procedure. Documented by Salina Salgado LPN on behalf of: Liam Brown DO documented in this encounter [facility] 09-14-2024 Telephone encounter Note Refills sent. [facility] 09-14-2024 Miscellaneous Notes Refills sent. documented in this encounter [facility] 09-09-2024 Telephone encounter Note Dexlansoprazole is the name of the rx she is currently taking. [facility] 09-09-2024 Miscellaneous Notes Dexlansoprazole is the name of the rx she is currently taking. Lmom for pt to cb, please ask cornelia's message and send back to her documented in this encounter [facility] 09-09-2024 Telephone encounter Note Lmom for pt to cb, please ask cornelia's message and send back to her [facility] 09-08-2024 Telephone encounter Note Patient is requesting dexilant - this works best for her. She thinks her insurance is trying to get her to try something else. She would prefer to stay on the dexilant. Uses [facility] in [place]. Thank you. [facility] 09-08-2024 Miscellaneous Notes Patient is requesting dexilant - this works best for her. She thinks her insurance is trying to get her to try something else. She would prefer to stay on the dexilant. Uses [facility] in [place]. Thank you. documented in this encounter [facility] 08-03-2024 History of Presen t illness Narrative Reason for Appointment: Patient ID: Hafsa Flores is a 64 y.o. female who presents for Discuss Surgery Patient presents today for Acute Visit. and Follow up appointment to discuss results. MEDICATIONS Current Outpatient Medications Medication Instructions cholecalciferol (Vitamin D-3) 50 MCG (1999) tablet Oral, Daily Cranberry (Cran-Max) 500 MG capsule Orally dexlansoprazole (DEXILANT) 60 mg, Oral, Daily Eliquis 5 mg, 2 times daily fluocinolone (DermOtic) 0.01 % ear drops 5 drops, Each Ear, 2 times daily metoprolol succinate XL (TOPROL-XL) 50 mg, 2 times daily rosuvastatin (CRESTOR) 5 mg, Oral, Daily ALLERGIES Allergies Allergen Reactions Cortisone Anxiety PROBLEMS Active Ambulatory Problems Diagnosis Date Noted Primary hypertension ([facility]) 11/28/2016 Anxiety 07/19/2020 Chronic eczematous otitis externa of both ears 04/26/2021 Gastro-esophageal reflux disease without esophagitis 01/20/2024 Hematuria, microscopic 11/10/2017 Hyperlipidemia ([facility]) 11/03/2020 Irregular periods 08/06/2015 Menopausal and female climacteric states 05/04/2017 Mitral valve prolapse 07/19/2020 Class 1 obesity 07/09/2022 Palpitations 01/20/2024 Primary osteoarthritis of both knees 07/09/2022 Type 2 diabetes mellitus without complication ([facility]) 01/20/2024 Vitamin D deficiency 07/09/2022 Resolved Ambulatory Problems Diagnosis Date Noted Mixed dyslipidemia ([facility]) 07/24/2023 Osteoarthritis of left knee 07/09/2022 Vaginal yeast infection 07/29/2023 Need for vaccination 07/29/2023 Nausea without vomiting 11/06/2022 Nephrolithiasis 11/10/2017 Pain in throat 05/20/2019 Jennifer-menopause 01/20/2024 Past Medical History: Diagnosis Date Atrial fib/flutter, transient (CMS/HCC) Chronic ear infection GERD (gastroesophageal reflux disease) Hypertension ([facility]) HISTORY PAST MEDICAL HISTORY SOCIAL HISTORY Past Medical History: Diagnosis Date Atrial fib/flutter, transient (CMS/HCC) Chronic ear infection GERD (gastroesophageal reflux disease) Hypertension (CMS/FORMERLY [facility]) Mitral valve prolapse Social History Tobacco Use Smoking status: Never Smokeless tobacco: Never Substance Use Topics Alcohol use: Not Currently Comment: Caffeine: 1-2 cups/day soda/pop Drug use: Never FAMILY HISTORY Family History Problem Relation Name Age of Onset Cancer Mother Pancreatic cancer Father SURGICAL HISTORY Past Surgical History: Procedure Laterality Date SECTION, LOW TRANSVERSE 1996 DILATION AND CURETTAGE OF UTERUS 06/04/2024 HYSTEROSCOPY 06/04/2024 JOINT REPLACEMENT Left 11/06/2022 total knee replacement TONSILLECTOMY 1972 TUBAL LIGATION 1996 REVIEW OF SYSTEMS Review of Systems: Review of Systems Constitutional: Negative. HENT: Negative. Eyes: Negative. Respiratory: Negative. Cardiovascular: Negative. Gastrointestinal: Negative. Genitourinary: Negative. Musculoskeletal: Negative. Skin: Negative. Neurological: Negative. All other systems reviewed and are negative. Hematological: Negative. Endocrine: Negative. Allergic/Immunologic: Negative. OBJECTIVE Objective: Physical Exam Constitutional: Appearance: Normal appearance. She is well-developed. Cardiovascular: Rate and Rhythm: Normal rate and regular rhythm. Pulmonary: Effort: Pulmonary effort is normal. Breath sounds: Normal breath sounds. Abdominal: General: Bowel sounds are normal. There is no distension. Palpations: Abdomen is soft. Tenderness: There is no abdominal tenderness. There is no guarding or rebound. Musculoskeletal: General: No swelling. Normal range of motion. Right lower leg: No edema. Left lower leg: No edema. Neurological: Mental Status: She is alert and oriented to person, place, and time. Skin: General: Skin is warm and dry. Psychiatric: Mood and Affect: Mood normal. Behavior: Behavior normal. Vitals and nursing note reviewed. Exam conducted with a darkroom technician present. Vitals: Estimated body mass index is 31.82 kg/m as calculated from the following: Height as of 24: 5' 4 . Weight as of this encounter: 185 lb 6.4 oz. BP: 120/70 No LMP recorded. Patient is postmenopausal. ASSESSMENT & PLAN ICD-10-CM 1. Post-menopausal bleeding N95.0 POCT urinalysis dipstick manually resulted 2. Burning with urination R30.0 POCT urinalysis dipstick manually resulted Pt presents to discuss findings of D&C- all options and risk reviewed. Pt desires surgical management. Pt to be scheduled for robotic hysterectomy. Pt to return for preop. Documented by Ramila Amor LPN on behalf of: iLam Brown DO documented in this encounter [facility] 07-13-2024 History of Presen t illness Narrative Reason for Appointment: Patient ID: Hafsa Flores is a 64 y.o. female who presents for No chief complaint on file. Patient presents today via telephone call for a telehealth appointment. Patients Phone #: [phone] (mobile) Current Medications: has a current medication list which includes the following prescription(s): cholecalciferol, cranberry, dexlansoprazole, eliquis, fluocinolone, metoprolol succinate xl, and rosuvastatin. Medical History: Active Ambulatory Problems Diagnosis Date Noted Primary hypertension (CMS/HCC) 11/28/2016 Anxiety 07/19/2020 Chronic eczematous otitis externa of both ears 04/26/2021 Gastro-esophageal reflux disease without esophagitis 01/20/2024 Hematuria, microscopic 11/10/2017 Hyperlipidemia (CMS/HCC) 11/03/2020 Irregular periods 08/06/2015 Menopausal and female climacteric states 05/04/2017 Mitral valve prolapse 07/19/2020 Class 1 obesity 07/09/2022 Palpitations 01/20/2024 Primary osteoarthritis of both knees 07/09/2022 Type 2 diabetes mellitus without complication ([facility]/HCC) 01/20/2024 Vitamin D deficiency 07/09/2022 Resolved Ambulatory Problems Diagnosis Date Noted Mixed dyslipidemia (CMS/HCC) 07/24/2023 Osteoarthritis of left knee 07/09/2022 Vaginal yeast infection 07/29/2023 Need for vaccination 07/29/2023 Nausea without vomiting 11/06/2022 Nephrolithiasis 11/10/2017 Pain in throat 05/20/2019 Jennifer-menopause 01/20/2024 Past Medical History: Diagnosis Date Atrial fib/flutter, transient (CMS/[facility]) Chronic ear infection GERD (gastroesophageal reflux disease) Hypertension ([facility]) Family History Problem Relation Name Age of Onset Cancer Mother Pancreatic cancer Father Social History Tobacco Use Smoking status: Never Smokeless tobacco: Never Substance Use Topics Alcohol use: Not Currently Comment: Caffeine: 1-2 cups/day soda/pop Drug use: Never Past Surgical History: Procedure Laterality Date SECTION, LOW TRANSVERSE 1992, 1996 HYSTEROSCOPY 06/04/2024 JOINT REPLACEMENT Left 11/06/2022 total knee replacement TONSILLECTOMY 1972 TUBAL LIGATION 1996 Allergies Allergen Reactions Cortisone Anxiety Vitals: Estimated body mass index is 31.43 kg/m as calculated from the following: Height as of 04/07/24: 5' 4 . Weight as of 06/16/24: 183 lb 1.9 oz. BP: No LMP recorded. Patient is postmenopausal. Assessment/Plan Encounter Diagnosis Name Primary? Post-menopausal bleeding Pt was called and discussed results of endometrial curettings- discussed all options with pt in great detail. Pt considering options will schedule for follow up appt with Dr Brown. Discussed hysterectomy, D&C, or adding premarin cream . 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 Pt transferred to front to make an appt to discuss options. Today's telehealth visit consisted of spending 10 minutes talking to patient on the phone. Documented by Ramila Amor LPN on behalf of: Liam Brown DO documented in this encounter [facility] 06-16-2024 History of Presen t illness Narrative Reason for Appointment: Patient ID: Hafsa Flores is a 64 y.o. female who presents for Post-op Visit Patient presents today for 1 Week Post Op Follow Up appointment. MEDICATIONS Current Outpatient Medications Medication Instructions cholecalciferol (Vitamin D-3) 50 MCG (1999) tablet Oral, Daily Cranberry (Cran-Max) 500 MG capsule Orally dexlansoprazole (DEXILANT) 60 mg, Oral, Daily Eliquis 5 mg, Oral, 2 times daily fluocinolone (DermOtic) 0.01 % ear drops 5 drops, Each Ear, 2 times daily metoprolol succinate XL (TOPROL-XL) 50 mg, Oral, 2 times daily, Do not crush or chew. rosuvastatin (CRESTOR) 5 mg, Oral, Daily ALLERGIES Allergies Allergen Reactions Cortisone Anxiety PROBLEMS Active Ambulatory Problems Diagnosis Date Noted Primary hypertension ([facility]) 11/28/2016 Anxiety 07/19/2020 Chronic eczematous otitis externa of both ears 04/26/2021 Gastro-esophageal reflux disease without esophagitis 01/20/2024 Hematuria, microscopic 11/10/2017 Hyperlipidemia ([facility]) 11/03/2020 Irregular periods 08/06/2015 Menopausal and female climacteric states 05/04/2017 Mitral valve prolapse 07/19/2020 Class 1 obesity 07/09/2022 Palpitations 01/20/2024 Primary osteoarthritis of both knees 07/09/2022 Type 2 diabetes mellitus without complication ([facility]/HCC) 01/20/2024 Vitamin D deficiency 07/09/2022 Resolved Ambulatory Problems Diagnosis Date Noted Mixed dyslipidemia (CMS/HCC) 07/24/2023 Osteoarthritis of left knee 07/09/2022 Vaginal yeast infection 07/29/2023 Need for vaccination 07/29/2023 Nausea without vomiting 11/06/2022 Nephrolithiasis 11/10/2017 Pain in throat 05/20/2019 Jennifer-menopause 01/20/2024 Past Medical History: Diagnosis Date Atrial fib/flutter, transient (CMS/HCC) Chronic ear infection GERD (gastroesophageal reflux disease) Hypertension (CMS/HCC) HISTORY PAST MEDICAL HISTORY SOCIAL HISTORY Past Medical History: Diagnosis Date Atrial fib/flutter, transient (CMS/HCC) Chronic ear infection GERD (gastroesophageal reflux disease) Hypertension (CMS/HCC) Mitral valve prolapse Social History Tobacco Use Smoking status: Never Smokeless tobacco: Never Substance Use Topics Alcohol use: Not Currently Comment: Caffeine: 1-2 cups/day soda/pop Drug use: Never FAMILY HISTORY Family History Problem Relation Name Age of Onset Cancer Mother Pancreatic cancer Father SURGICAL HISTORY Past Surgical History: Procedure Laterality Date SECTION, LOW TRANSVERSE 1996 HYSTEROSCOPY 06/04/2024 JOINT REPLACEMENT Left 11/06/2022 total knee replacement TONSILLECTOMY 1972 TUBAL LIGATION 1996 REVIEW OF SYSTEMS Review of Systems: Review of Systems Constitutional: Negative. HENT: Negative. Eyes: Negative. Respiratory: Negative. Cardiovascular: Negative. Gastrointestinal: Negative. Genitourinary: Negative. Musculoskeletal: Negative. Skin: Negative. Neurological: Negative. All other systems reviewed and are negative. Hematological: Negative. Endocrine: Negative. Allergic/Immunologic: Negative. OBJECTIVE Objective: Physical Exam Constitutional: Appearance: Normal appearance. She is normal weight. HENT: Head: Normocephalic. Cardiovascular: Rate and Rhythm: Normal rate. Pulses: Normal pulses. Pulmonary: Effort: Pulmonary effort is normal. Breath sounds: Normal breath sounds. Abdominal: Palpations: Abdomen is soft. Musculoskeletal: General: Normal range of motion. Neurological: General: No focal deficit present. Mental Status: She is alert and oriented to person, place, and time. Psychiatric: Mood and Affect: Mood normal. Behavior: Behavior normal. Thought Content: Thought content normal. Judgment: Judgment normal. Vitals and nursing note reviewed. Vitals: Estimated body mass index is 31.43 kg/m as calculated from the following: Height as of 04/07/24: 5' 4 . Weight as of this encounter: 183 lb 1.9 oz. BP: 120/70 No LMP recorded. Patient is postmenopausal. ASSESSMENT & PLAN ICD-10-CM 1. Postoperative examination Z09 Post Op Follow Up: Patient presents today for a postop follow up after having a D&C Hysteroscopy with myosure performed at [facility] with Dr. Brown. Pathology results was reviewed with the patient in great detail and all restrictions have been lifted. Follow Up: Patient is to return to the office for annual exam unless needed otherwise. Documented by KAMLA Sharpe on behalf of: KAMLA Sharpe documented in this encounter [facility] 10-30-2023 Telephone encounter Note sent [facility] 10-30-2023 Miscellaneous Notes sent Pt called stating that in her appt she asked if she could get diflucan sent over as well with an abx to the pharm but they only received a script for the abx. Can she get diflucan as well? documented in this encounter [facility] 10-29-2023 Telephone encounter Note Pt called stating that in her appt she asked if she could get diflucan sent over as well with an abx to the pharm but they only received a script for the abx. Can she get diflucan as well? [facility] Evaluation note Diagnosis Vaginal yeast infection- Primary Candidiasis of vulva and vagina documented in this encounter [facility] noteNo assessment information [facility] Work Phone: Evaluation note* Diagnosis Post-menopausal bleeding Postmenopausal bleeding documented in this encounter [facility] HealthcareEvaluation note* Diagnosis Chronic eczematous otitis externa of left ear documented in this encounter [facility] HealthcareEvaluation note* Diagnosis Post-menopausal bleeding Postmenopausal bleeding Burning with urination Dysuria documented in this encounter [facility] HealthcareEvaluation note* Diagnosis Mixed dyslipidemia (CMS/HCC) documented in this encounter [facility] HealthcareEvaluation note* Diagnosis Postoperative examination Follow-up examination, following unspecified surgery documented in this encounter [facility] HealthcareEvaluation note* Diagnosis Gastroesophageal reflux disease without esophagitis Esophageal reflux documented in this encounter [facility] HealthcareEvaluation note* Diagnosis Gastroesophageal reflux disease without esophagitis Esophageal reflux documented in this encounter [facility] HealthcareEvaluation note* Diagnosis Vitamin D deficiency documented in this encounter [facility] HealthcareEvaluation note* Diagnosis Chronic eczematous otitis externa of left ear documented in this encounter [facility] HealthcareEvaluation note* Diagnosis Preop examination Unspecified pre-operative examination Post-menopausal bleeding Postmenopausal bleeding Pelvic pain in female Unspecified symptom associated with female genital organs Dyspareunia in female Dysmenorrhea documented in this encounter [facility] HealthcareEvaluation note* Diagnosis Urinary tract infection with hematuria, site unspecified- Primary Renal cyst Unspecified congenital cystic kidney disease Nephrolithiasis Calculus of kidney Hematuria, microscopic Microscopic hematuria Nephrolithiasis- Primary Calculus of kidney Hematuria, microscopic Microscopic hematuria Renal cyst Unspecified congenital cystic kidney disease Preop cardiovascular exam- Primary Pre-operative cardiovascular examination Paroxysmal atrial fibrillation (CMS-HCC) Atrial fibrillation Mild mitral regurgitation Mild tricuspid regurgitation Primary hypertension Unspecified essential hypertension Hyperlipidemia, unspecified hyperlipidemia type Encounter for pre-operative cardiovascular clearance [facility] Diagnosis Urinary tract infection with hematuria, site unspecified- Primary Renal cyst Unspecified congenital cystic kidney disease Nephrolithiasis Calculus of kidney Hematuria, microscopic Microscopic hematuria Nephrolithiasis- Primary Calculus of kidney Hematuria, microscopic Microscopic hematuria Renal cyst Unspecified congenital cystic kidney disease Paroxysmal atrial fibrillation (CMS-HCC) Atrial fibrillation [facility] filedocumented in this [facility] filedocumented in this [facility]ructionsNot on filedocumented in this encounter [facility] Summary Purpose Family History No Family History Records FoundNo Family History Records FoundNo Family History Records FoundNo Family History Records FoundNo Family History Records FoundNo Family History Records FoundNo Family History Records Found Advance Directives No Advanced Directives Records Found Advance Directive Response Recorded Date/ Time Advance Directives No May 24, 2022 5:41pm Date Activated Date Inactivated Comments 11/06/2022 1:08 PM 11/06/2022 8:11 PM Date Activated Date Inactivated Comments 11/06/2022 1:08 PM 11/06/2022 8:11 PM Additional Source Comments INFORMATION SOURCE (unrecogn ized section and content) DATE CREATED AUTHOR 07/16/2020 [facility] DATE CREATED AUTHOR AUTHOR'S ORGANIZ ATION 09/10/2020 [facility] DATE CREATED AUTHOR AUTHOR'S ORGANIZ ATION 11/24/2020 [facility] DATE CREATED AUTHOR AUTHOR'S ORGANIZ ATION 11/08/2021 [facility] DATE CREATED AUTHOR AUTHOR'S ORGANIZ ATION 06/12/2024 [facility] DATE CREATED AUTHOR AUTHOR'S ORGANIZ ATION 09/19/2024 [facility] EPIC DATE CREATED AUTHOR AUTHOR'S ORGANIZ ATION 10/13/2024 [facility] Care Teams (unrecognized sec tion and content) Deck Steward Relationship Specialty Start Date End Date Vanesa Santa NP [address] [place] [address] PCP - [employer] 05/30/22 Nuzhat Mike MD [address] [place] [address] PCP - General Family Medicine 02/04/23 Team Status: Active Member Role Status Dates PHYSICIAN NO FAMILY Primary Care Provider Active Team Status: Inactive Member Role Status Dates PHYSICIAN NO FAMILY Primary Care Provider Active Start: June 04, 2024 End: June 04, 2024 Liam Brown DO Attending Provider Active Start : June 04, 2024 End: June 04, 2024 Deck Steward Relationship Specialty Start Date End Date Nuzhat Mike MD [address] [facility] [place] [address] PCP - General Family Medicine 02/04/23 Bisi Carcamo NP [address] [place] [address] PCP - [employer] 03/29/24 Deck Steward Relationship Specialty Start Date End Date Nuzhat Mike MD [address] [place] [address] PCP - General Family Medicine 02/04/23 Bisi Carcamo NP [address] [place] [address] PCP - [employer] 03/29/24 Deck Steward Relationship Specialty Start Date End Date Nuzhat Mike MD [address] [facility] [place] [address] PCP - General Family Medicine 02/04/23 Bisi Carcamo NP [address] [place] [address] PCP - [employer] 03/29/24 Deck Steward Relationship Specialty Start Date End Date Nuzhat Mike MD [address] [place] [address] PCP - General Family Medicine 02/04/23 Bisi Carcamo NP [address] [place] [address] PCP - [employer] 03/29/24 Deck Steward Relationship Specialty Start Date End Date Nuzhat Mike MD [address] [place] [address] PCP - General Family Medicine 02/04/23 Bisi Carcamo NP [address] [place] [address] PCP - [employer] 03/29/24 Deck Steward Relationship Specialty Start Date End Date Nuzhat Mike MD [address] [place] [address] PCP - General Family Medicine 02/04/23 Bisi Carcamo NP [address] [place] [address] PCP - [employer] 03/29/24 Deck Steward Relationship Specialty Start Date End Date Nuzhat Mike MD [address] [place] [address] PCP - General Family Medicine 02/04/23 Bisi Carcamo NP [address] [place] [address] PCP - [employer] 03/29/24 Deck Steward Relationship Specialty Start Date End Date Nuzhat Mike MD [address] [place] [address] PCP - General Family Medicine 05/03/19 Deck Steward Relationship Specialty Start Date End Date Nuzhat Mike MD [address] [place] [address] PCP - General Family Medicine 05/03/19 Deck Steward Relationship Specialty Start Date End Date Nuzhat Mike MD [address] [facility] [place] [address] PCP - General Family Medicine 05/03/19 Goals (unrecognized section and content) Goals may be documented in a n alternate section Reason for Visit (unrecogniz ed section and content) Reason Comments Med Refill Reason Comments Discuss Surgery Reason Comments Post-op Visit Reason Comments Med Change Request Reason Comments Pre-op Visit Reason Comments Palpitations Atrial Fibrillation Follow-up 3 month Pre-op Exam Preop clearance 09/30 Dr Brown hysterectomy fax [phone] Reason Onset Date Comments Med Refill 09/23/2024 FOR RECORDS PERTAINING TO PATIENTS WHO ARE [...] BE BASED ON THE PRIMARY CLINICAL RECORDS. [facility] [employer] [facility]. provides no warranty or guarantee of the accuracy or completeness of information in this document.
[2024-10-15 10:36] LABS: Basophils Percent Auto 0.2 % (0.2-2.0); Eosinophils Percent Auto 0.5 % (0.9-7.0); Hematocrit 42.1 % (36.0-48.0); Hemoglobin 13.7 g/dL (12.0-16.0); Immature Granulocytes Abs Auto 0.02 10^3/uL (0.00-0.03); Immature Granulocytes Pct Auto 0.2 % (0.0-0.5); Lymphocytes Absolute Auto 1.2 10^3/uL (1.2-3.8); Lymphocytes Percent Auto 14.8 % (20.5-60.0); Mean Corpuscular HGB Conc 32.5 g/dL (29.9-35.2); Mean Corpuscular Hemoglobin 28.3 pg (26.7-34.0); Mean Platelet Volume 8.9 fL (9.5-13.5); Monocytes Absolute Auto 0.5 10^3/uL (0.3-0.8); Monocytes Percent Auto 5.8 % (1.7-12.0); Neutrophils Absolute Auto 6.4 10^3/uL (1.4-6.5); Neutrophils Percent Auto 78.5 % (43.0-75.0); Platelet Count 267 10^3/uL (150-450); Red Blood Count 4.84 10^6/uL (4.20-5.40); Red Cell Distribution Width 12.9 % (11.0-15.0); White Blood Count 8.2 10^3/uL (4.0-11.0)
[2024-10-15 10:58] LABS: INR 1.05; Partial Thromboplastin Time 28.2 sec (22.3-36.2); Prothrombin Time 11.1 sec (9.0-11.6)
[2024-10-15 11:15] LABS: Alanine Aminotransferase 21 U/L (14-59); Albumin Level 3.7 g/dL (3.4-5.0); Alkaline Phosphatase 70 U/L (46-116); Anion Gap 10.4; Aspartate Amino Transferase 16 U/L (15-37); Bilirubin Direct 0.1 mg/dL (0.0-0.2); Bilirubin Total 0.5 mg/dL (0.2-1.0); Calcium 9.5 mg/dL (8.5-10.1); Chloride 108 mmol/L (98-107); Estimated GFR (African America >60 (>=60 mL/min/1.73m^2); Estimated GFR (Non-African Ame >60 (>=60 mL/min/1.73m^2); Globulin 3.6 g/dL; Glucose 108 mg/dL (74-106); Potassium 4.4 mmol/L (3.5-5.1); Sodium 145 mmol/L (136-145); Total Protein 7.3 g/dL (6.4-8.2)
== END 2024-10-15 09:57 | disposition home or self-care (01) ==
LOC: PST 09:56
PROVIDERS: PCP Family Medicine; Visit Provider Obstetrics & Gynecology
DX: Z01.812 Encounter for preprocedural laboratory examination (principal); N95.0 Postmenopausal bleeding; R10.2 Pelvic and perineal pain; N94.10 Unspecified dyspareunia; N94.6 Dysmenorrhea, unspecified
CPT/HCPCS: 80048; 80076; 85025; 85610; 85730; 86850; 86900; 86901

== ENCOUNTER 2024-10-21 17:52 | Inpatient (IN) | payer BC, SELFPAY ==
[2024-10-15 10:31] VITALS: BP 151/74; PULSE 74; TEMP 36.4; O2SAT 96; BMI 32.4
[2024-10-21] VITALS (14 sets, daily range): BP systolic 121–178; BP diastolic 65–99; PULSE 74–101; TEMP 36.3–37.2; O2SAT 92–97; BMI 31.7; BMI 32.8
[2024-10-21 11:27] LABS: Basophils Percent Auto 0.4 % (0.2-2.0); Eosinophils Percent Auto 0.2 % (0.9-7.0); Hematocrit 44.9 % (36.0-48.0); Hemoglobin 14.5 g/dL (12.0-16.0); Immature Granulocytes Abs Auto 0.01 10^3/uL (0.00-0.03); Immature Granulocytes Pct Auto 0.2 % (0.0-0.5); Lymphocytes Absolute Auto 1.4 10^3/uL (1.2-3.8); Lymphocytes Percent Auto 30.5 % (20.5-60.0); Mean Corpuscular HGB Conc 32.3 g/dL (29.9-35.2); Mean Corpuscular Hemoglobin 28.1 pg (26.7-34.0); Monocytes Absolute Auto 0.4 10^3/uL (0.3-0.8); Monocytes Percent Auto 8.2 % (1.7-12.0); Neutrophils Absolute Auto 2.7 10^3/uL (1.4-6.5); Neutrophils Percent Auto 60.5 % (43.0-75.0); Platelet Count 240 10^3/uL (150-450); Red Blood Count 5.16 10^6/uL (4.20-5.40); Red Cell Distribution Width 13.1 % (11.0-15.0); White Blood Count 4.5 10^3/uL (4.0-11.0)
--- OUTSIDE RECORDS SUMMARY | 2024-10-21 11:33 | XMS_ITS | CCD ---
Author Organization [facility] Care Team Providers Care Invasive Manager Name Role Phone Unavailable Primary Care Provider Unavailabl e NUZHAT MIKE Admitting Unavailable NUZHAT MIKE Attending Unavailable MORGAN, SOHAIL Referring Unavailable MORGAN, SOHAIL Referring Unavailable MORGAN, SOHAIL Referring Unavailable MORGAN, SOHAIL Referring Unavailable MORGAN, SOHAIL Referring Unavailable MORGAN, SOHAIL Referring Unavailable MORGAN, SOHAIL Referring Unavailable MORGAN, SOHAIL Referring Unavailable MORGAN, SOHAIL Referring Unavailable MORGAN, SOHAIL Referring Unavailable Kiet MEDICAL INSURANCE CLAIMS PROCESSOR, Vanesa Shay Unavailable Nuzhat Mike MD Primary Care Provider NO FAMILY, PHYSICIAN Primary Care Provider Unava ilable DO Liam Brown Attending Provider NO FAMILY, PHYSICIAN Primary Care Unavailable Liam Brown Attending Unavailable Liam Brown Admitting Unavailable Carcamo MEDICAL INSURANCE CLAIMS PROCESSOR, Bisi Perera Unavailable BISI CARCAMO Attending Unavailab le CARCAMOBISI RUBIO Attending Unavailab le BISI CARCAMO Attending Unavailab ADALID Pillai Attending Unavailable BISI CARCAMO Referring Unavailab ADALID Pillai Attending Unavailable LIAM BROWN Attending Unavailable TERRY BORREROE Rock Referring Unavailable BISI CARCAMO Attending Unavailab LIAM Awad Attending Unavailable CATHLEEN OLEA Attending Unavailable LIAM BROWN Attending Unavailable LIAM BROWN Attending Unavailable Nuzhat Mike MD Primary Care Provider LINDA LEARY Attending Unavailable NUZHAT MIKE Referring Unavailable NUZAHT MIKE Primary Care Unavailable LINDA LEARY Attending Unavailable LINDA LEARY M Referring Unavailable NUZHAT MIKE Primary Care Unavailable ELENILINDA WESTFALL M Attending Unavailable LINDA LEARY M Referring Unavailable NUZHAT MIKE Primary Care Unavailable LINDA LEARY M Attending Unavailable LINDA LEARY M Referring [...] Cortisone; Translations: [CORTISONE] Drug Allergy 10-28-2023 Anxiety [facility] Healthcare Work Phone: Medications Current Medications Medication Drug Class(es) Dates Sig (Normalized) Sig (Original) apixaban 5 mg oral tablet (20 sources) Factor Xa Inhibitor Start: 03-02-2024 End: 09-23-2024 take 1 tablet by mouth in the morning, then take 1 tablet by mouth at bedtime apixaban (ELIQUIS) 5 mg tablet Indications: Paroxysmal atrial fibrillation ([facility]) Take 1 tablet (5 mg total) by mouth in the morning and 1 tablet (5 mg total) before bedtime. 60 tablet 1 09/24/2024 Active cholecalciferol 0.05 mg oral tablet (20 sources) Vitamin D Start: 11-06-2022 End: 09-14-2024 take 1 tablet by mouth once daily in the morning cholecalciferol, vitamin D3, 2,000 units tablet Indications: prevention of vitamin D deficiency , vitamin D deficiency Take 1 tablet (2,000 Units total) by mouth in the morning. Indications: low vitamin D levels, prevention of vitamin D deficiency. 11/06/2022 Active cranberry preparation 650 mg oral capsule [...] mg/ml otic solution (20 sources) Corticosteroid Start: 10-18-2024 fluocinolone (DermOtic) 0.01 % ear drops Indications: Chronic eczematous otitis externa of left ear ADMINISTER 5 DROPS INTO EACH EAR IN THE MORNING AND 5 DROPS BEFORE BEDTIME. 20 mL 10/18/2024 Active Start: 07-30-2024 End: 10-18-2024 fluocinolone (DermOtic) 0.01 % ear drops Indications: Chronic eczematous otitis externa of left ear ADMINISTER 5 DROPS INTO EACH EAR IN THE MORNING AND 5 DROPS BEFORE BEDTIME. 20 mL 07/30/2024 10/18/2024 Discontinued Start: 06-07-2024 fluocinolone ( DermOtic) 0.01 % [...] Start: 07-07-2023 take 1 tablet by jeff th once daily metoprolol succinate XL (Toprol-XL) 50 [...] capsule 0 10/28/2023 11/04/2023 Active rosuvastatin calcium 20 mg oral tablet (20 sources) HMG-CoA Reductase Inhibitor Start: 10-18-2024 take 1 tablet by mouth in the morning rosuvastatin (CRESTOR) 20 mg tablet Indications: hyperlipidemia Take 1 tablet (20 mg total) by mouth in the morning. Indications: excessive fat in the blood. 90 tablet 3 10/18/2024 Active Start: 06-25-2022 End: 10-15-2024 rosuvastatin (CRESTOR) 5 mg tablet Indications: hyperlipidemia Take by mouth daily Indications: excessive fat in the blood. 06/25/2022 10/15/2024 Discontinued (Reorder) Problems Active Problems Problem Classification Problem Date [...] Chronic Other ear and sense organ disorders (3 sources) Chronic otitis externa of left external [...] Episodic Immunizations and screening for infectious disease (20 sources) Vaccination needed; Translations: [Encounter for immunization] [...] Episodic Other diseases of kidney and ureters (4 sources) Cyst of kidney; Translations: [Cyst of kidney, acquired] Onset: 11-10-2017 12-16-2022 Episodic Other upper respiratory disease (20 sources) Pain in throat; Translations: [Pain in throat] Onset: 05-20-2019 Resolved: 01-20-2024 01-20-2024 Episodic Unclassified (4 sources) Onset: 05-20-2019 05-20-2019 Results Test Name Value Interpretation Reference Range Facility ALL CBC WITH AUTO DIFFon BASOPHILS ABSOLUTE AUTO 0 [facility] Basophils/100 WBC (Bld) 0.2 % 0.2 - 2.0 % [facility] Eosinophils/100 WBC (Bld) 0.5 % Low 0.9 - 7.0 % [facility] Erythrocyte distribution width (RBC) [Ratio] 12.9 % 11.0 - 15.0 % [facility] Hematocrit (Bld) [Volume fraction] 42.1 % 36.0 - 48.0 % [facility] Hemoglobin (Bld) [Mass/Vol] 13.7 g/dL 12.0 - 16.0 g/dL [facility] IMMATURE GRANULOCYTES ABS AUTO 0.02 [facility] Immature granulocytes/100 WBC (Bld) 0.2 % 0.0 - 0.5 % [facility] Interpretation and review of laboratory results Abnormal [facility] LYMPHOCYTES ABSOLUTE AUTO 1.2 [facility] Lymphocytes/100 WBC (Bld) 14.8 % Low 20.5 - 60.0 % [facility] MCH (RBC) [Entitic mass] 28.3 pg 26.7 - 34.0 pg [facility] MCHC (RBC) [Mass/Vol] 32.5 g/dL 29.9 - 35.2 g/dL [facility] MCV (RBC) [Entitic vol] 87 fL 81.0 - 99.0 fL [facility] 0.5 [facility] Monocytes/100 WBC (Bld) 5.8 % 1.7 - 12.0 % [facility] NEUTROPHILS ABSOLUTE AUTO 6.4 [facility] Neutrophils/100 WBC (Bld) 78.5 % High 43.0 - 75.0 % [facility] Platelet mean volume (Bld) [Entitic vol] 8.9 fL Low 9.5 - 13.5 fL [facility] EO # 0 [facility] PLT 267 [facility] RBC 4.84 [facility] WBC 8[facility]2 [facility] Lipid 1996 panelon 5 Cholesterol [Mass/Vol] 144 mg/dL Low 150-200 [facility] Comment on above: Performed By: #### 2 4331-1 #### [facility] ([id number]) [address] [place] [address], [address] [place] [address] Cholesterol in HDL [Mass/Vol] 55 mg/dL Normal >39 [facility] Comment on above: Result Comment: HDL <40 mg/dL - High Risk HDL > or = 40mg/dL- Desirable HDL >60 mg/dL - Negative Risk Performed By: #### 2 4331-1 #### [facility] ([id number]) [address] [facility] [address] [place] [address] Cholesterol in LDL [Mass/Vol] 79 mg/dL Normal <130 [facility] Comment on above: Result Comment: LDL <100 mg/dL - Desirable LDL >160 mg/dL - High Risk Performed By: #### 2 4331-1 #### [facility] ([id number]) [address], [address] [address] Cholesterol in VLDL [Mass/Vol] 10 mg/dL Normal 0-30 [facility] Comment on above: Performed By: #### 2 4331-1 #### [facility] ([id number]) [address], [address] [address] CHOLESTEROL:HDL 2.6 Normal 1.0-5.0 [facility] Comment on above: Performed By: #### 2 4331-1 #### [facility] ([id number]) [address], [address] [address] Triglyceride [Mass/Vol] 49 mg/dL Normal 27-150 [facility] Comment on above: Performed By: #### 2 4331-1 #### [facility] ([id number]) [address], [address] [address] POCT EKGon 09-23-2024 [facility] Urinalysis macro (dipstick) panel (U)on 08-03-2024 Bilirubin, UA Negative Negative - 4(70) +++ mg/dL [facility] Blood, UA Negative Negative - 50 John/mcL [facility] Healthcare Clarity, UA Clear [facility] Color, UA Yellow [facility] Glucose, UA Negative Negative - 2000(110) ++++ mg/dL [facility] Interpretation and review of laboratory results Normal [facility] Ketones, UA Negative Negative - 160(16) ++++ mg/dL [facility] Leukocytes, UA Negative Negative - 500+++ Donte/mcL [facility] Nitrite, UA Negative Negative - Positive [facility] Healthcare pH, UA 6 5 - 9 [facility] Protein, UA Negative Negative - 1999(20) ++++ mg/dL [facility] Spec Grav, UA 1.01 1 - 1.03 [facility] Urobilinogen, UA 0.2 0.2 - 12 mg/dL [facility] e MAMM SCREENING BILATERAL W C ethnic origins teacher 07-19-2024 MAMM SCREENING BILATERAL W CAD MAMM SCREENING BILATERAL W CAD HAFSA FLORES 1960 [id number] EXAM: MAMM SCREENING BILATERAL W CAD, 07/16/2024 [...] AM 1 c MAMM 1 YR Normal [facility] ALL CBC WITH AUTO DIFFon BASOPHILS ABSOLUTE AUTO 0.0 [facility] Basophils/100 WBC (Bld) 0.4 % 0.2 - 2.0 % [facility] Eosinophils/100 WBC (Bld) 0.6 % Low 0.9 - 7.0 % [facility] Erythrocyte distribution width (RBC) [Ratio] 13.0 % 11.0 - 15.0 % [facility] Hematocrit (Bld) [Volume fraction] 42.3 % 36.0 - 48.0 % [facility] [employer] e Hemoglobin (Bld) [Mass/Vol] 13.8 g/dL 12.0 - 16.0 g/dL [facility] IMMATURE GRANULOCYTES ABS AUTO 0.00 [facility] Immature granulocytes/100 WBC (Bld) 0.0 % 0.0 - 0.5 % [facility] Interpretation and review of laboratory results Abnormal [facility] LYMPHOCYTES ABSOLUTE AUTO 1.6 [facility] Lymphocytes/100 WBC (Bld) 31.0 % 20.5 - 60.0 % [facility] MCH (RBC) [Entitic mass] 28.2 pg 26.7 - 34.0 pg [facility] MCHC (RBC) [Mass/Vol] 32.6 g/dL 29.9 - 35.2 g/dL [facility] MCV (RBC) [Entitic vol] 86.5 fL 81.0 - 99.0 fL [facility] MONOCYTES ABSOLUTE AUTO 0.4 [facility] Monocytes/100 WBC (Bld) 7.9 % 1.7 - 12.0 % [facility] NEUTROPHILS ABSOLUTE AUTO 3.1 [facility] Neutrophils/100 WBC (Bld) 60.1 % 43.0 - 75.0 % [facility] Platelet mean volume (Bld) [Entitic vol] 9.3 fL Low 9.5 - 13.5 fL [facility] Healthc are TBH EO # 0.0 [facility] TB PLT 244 [facility] TB RBC 4.89 [facility] TB WBC 5.1 [facility] Babar 06-04-2024 L Specimen: [id number] Received: 06/07/24 Status: COLLEEN Carpio Num: [id number] Spec Type: Surgical Subm Dr: Liam Brown Tissues: A Endometrium - Curettings (ENDOMETRIAL CURRETTINGS) Procedures: HE/2, Gross/Micro L4 Age/ Patient Sex Location Account Attending Physician Hafsa Flores 64/F [facility] [id number] Liam Brown SPEC NUM: [id number] RECD: 06/07/24 STATUS: COLLEEN CARPIO NUM: [id number] ARELI: 06/04/[address]: Liam Brown ENTERED: 06/07/[address]: Pepper,Lab SPEC TYPE: Surgical DEPT: [facility] ENTERED BY: [id number] RECV BY: [id number] ORDERED: HE/2, Gross/Micro L4 ORDERED: HE/2, Gross/Micro [...] performed supporting the above interpretation -------- Specimen: [id number] Received: 06/07/24 Status: COLLEEN Lopezstephanie Num: [id number] Spec Type: Surgical Subm Dr: Liam Brown Tissues: A Endometrium - Curettings (ENDOMETRIAL CURRETTINGS) Procedures: HE/Zelalem, Gross/Micro L4 -------- Patient: Hafsa Flores [id number] (Continued) -------- Specimen: [id number] Received: 06/07/24 (Continued) Signed (signature on file) Armin Alexander MD 06/10/248 -------- Specimen: [id number] Received: 06/07/24 Status: COLLEEN Lopezstephanie Num: [id number] Spec Type: Surgical Subm Dr: Liam Brown Tissues: A Endometrium - Curettings (ENDOMETRIAL CURRETTINGS) Procedures: /2, Gross/Beatris L4 -------- Patient: Hafsa Flores [id number] (Continued) -------- Specimen: [id number] Received: 06/07/24 (Continued) CPT Codes 36914 -------- -------- Specimen: [id number] Received: 06/07/24 Status: COLLEEN Carpio Num: [id number] Spec Type: Surgical Subm Dr: Liam Brown Tissues: A Endometrium - Curettings (ENDOMETRIAL CURRETTINGS) Procedures: HE/2, Gross/Micro L4 -------- Patient: Hafsa Flores [id number] (Continued) -------- Signed (signature on file) Armin Alexander MD 06/10/241047 Normal [facility] ALL CBC WITH AUTO DIFFon BASOPHILS ABSOLUTE AUTO 0.0 [facility] Basophils/100 WBC (Bld) 0.4 % 0.2 - 2.0 % [facility] Eosinophils/100 WBC (Bld) 1.0 % 0.9 - 7.0 % [facility] Erythrocyte distribution width (RBC) [Ratio] 13.1 % 11.0 - 15.0 % [facility] Hematocrit (Bld) [Volume fraction] 42.6 % 36.0 - 48.0 % [facility] Healthcar e Hemoglobin (Bld) [Mass/Vol] 14.0 g/dL 12.0 - 16.0 g/dL [facility] IMMATURE GRANULOCYTES ABS AUTO 0.01 [facility] Immature granulocytes/100 WBC (Bld) 0.2 % 0.0 - 0.5 % [facility] Interpretation and review of laboratory results Abnormal [facility] LYMPHOCYTES ABSOLUTE AUTO 1.1 Low [facility] Lymphocytes/100 WBC (Bld) 21.1 % 20.5 - 60.0 % [facility] MCH (RBC) [Entitic mass] 28.4 pg 26.7 - 34.0 pg [facility] MCHC (RBC) [Mass/Vol] 32.9 g/dL 29.9 - 35.2 g/dL [facility] MCV (RBC) [Entitic vol] 86.4 fL 81.0 - 99.0 fL [facility] MONOCYTES ABSOLUTE AUTO 0.3 [facility] Monocytes/100 WBC (Bld) 6.7 % 1.7 - 12.0 % [facility] NEUTROPHILS ABSOLUTE AUTO 3.6 [facility] Neutrophils/100 WBC (Bld) 70.6 % 43.0 - 75.0 % [facility] Platelet mean volume (Bld) [Entitic vol] 9.5 fL 9.5 - 13.5 fL [facility] EO # 0.1 [facility] Healthcar e TB PLT 231 [facility] Healthcar e TB RBC 4.93 [facility] Healthcar e TB WBC 5.1 [facility] Healthcar e [facility] Healthcar e US PELVIS TRANSVAGINALon US PELVIS [...] 11-06-2021 CULTURE, URINE, ROUTINE SEE NOTE Normal [facility] [employer] [facility] Comment on above: Order Comment: [facility] Testing performed at: QPT, [facility], [address], [address] [facility], [place], [address], Sound Engineer: Dinh Ackerman MD [facility] Collection Date/Time: [id number] [facility] Results Received Date/Time: [facility] Reported Date/Time: FASTING: NO Result Comment: CULT URE, URINE, ROUTINE Micro Number: [id number] Test Status: Final Specimen Source: Urine Specimen Quality: Adequate Result: No Growth Performed By: #### 6 [id number] #### [facility] [address] [place] [address] [id number] 11-23-2020 SARS-CoV-2 Normal [facility] Comment on above: Performed By: #### C OVID #### [facility] [place] [address] Tire Molder: Timothy Bain MD SARS-CoV-2 DETECTED Abnormal NOTDET [facility] Comment on above: Result Comment: The [...] this assay. Fact sheet for Healthcare Providers: https://www.fda.gov/media/146115/download Fact sheet for Patients: https://www.fda.gov/media/582553/download METHODOLOGY: RT-PCR Results reported to the appropriate Health Department Performed By: #### C OVID #### [address] [id number] Tire Molder: Timothy Bain MD [id number] 11-22-2020 SARS-CoV-2 Source .NASOPHARYNGEAL SWAB Normal [facility] Comment on above: Performed By: #### C OVID #### [address] [id number] Tire Molder: Timothy Bain MD [id number] 11-03-2020 SARS-CoV-2 Not Detected Normal [facility] Comment on above: Result Comment: The specimen is NEGATIVE for SARS-CoV-2, the novel coronavirus associated with COVID-19. A negative result does not rule out COVID-19. Angi SARS-CoV-2 for use on the [employer] is a real-time RT-PCR test intended [...] this assay. Fact sheet for Healthcare Providers: https://www.fda.gov/media/479851/download Fact sheet for Patients: https://www.fda.gov/media/406895/download METHODOLOGY: RT-PCR Performed By: #### C OVID #### [address] [id number] Tire Molder: Timothy Bain MD SARS-CoV-2 [facility] Comment on above: Performed By: #### C OVID #### [facility] [employer] [address] [place] [id number] Tire Molder: Timothy Bain MD SARS-CoV-2,Rapid Normal [facility] Comment on above: Performed By: #### C OVID #### [address] [id number] Tire Molder: Timothy Bain MD SARS-CoV-2 Source .NASOPHARYNGEAL SWAB Normal [facility] Comment on above: Performed By: #### C OVID #### [address] [place], [place] 7[address] Tire Molder: Timothy Bain MD [id number] 10-22-2020 SARS-CoV-2 Not Detected Normal [facility] Comment on above: Result Comment: The specimen is NEGATIVE for SARS-CoV-2, the novel coronavirus associated with COVID-19. A negative result does not rule out COVID-19. Angi SARS-CoV-2 for use on the [employer] is a real-time RT-PCR test intended [...] this assay. Fact sheet for Healthcare Providers: https://www.fda.gov/media/114956/download Fact sheet for Patients: https://www.fda.gov/media/619481/download METHODOLOGY: RT-PCR Performed By: #### C OVID #### [address] [id number] Tire Molder: Timothy Bain MD SARS-CoV-2 [facility] Comment on above: Performed By: #### C OVID #### [facility] [address] [place], [place] [id number] Tire Molder: Timothy Bain MD SARS-CoV-2,Rapid Normal [facility] Comment on above: Performed By: #### C OVID #### [facility] [address] [place], [place] 8[address] Tire Molder: Timothy Bain MD [id number] 10-20-2020 SARS-CoV-2 Source .NASOPHARYNGEAL SWAB Normal [facility] Comment on above: Performed By: #### C OVID #### [address] [place], [place] 35[address] Tire Molder: Timothy Bain MD [id number] 10-07-2020 SARS-CoV-2 Not Detected Normal Not Detected [facility] Comment on above: Result Comment: (NOT E) This nucleic acid amplification test was developed and its performance characteristics determined by [employer]. Nucleic acid amplification tests include PCR and [...] detected) result in this assay. Performed At: [address] [id number] Ce Rogel PhD Ph:[phone] Performed By: #### A COV #### [facility] [address] [place] [address] Tire Molder: Edmund Gerard MD [id number] 09-30-2020 SARS-CoV-2 Not Detected Normal Not Detected [facility] Comment on above: Result Comment: (NOT E) This nucleic acid amplification test was developed and its performance characteristics determined by [employer]. Nucleic acid amplification tests include PCR and [...] detected) result in this assay. Performed At: [facility] [address] [employer] [place] [id number] Lonnie Perera MD Ph:[phone] Performed By: #### A COV #### [facility] [address] [place] [address] Tire Molder: Edmund Gerard MD [id number] 09-15-2020 SARS-CoV-2 Not Detected Normal Not Detected [facility] Comment on above: Result Comment: (NOT E) This nucleic acid amplification test was developed and its performance characteristics determined by [employer]. Nucleic acid amplification tests include PCR and [...] detected) result in this assay. Performed At: [facility] [address] [place], [place] [id number] Lonnie Perera MD Ph:[phone] Performed By: #### A COV #### [facility] [address] [place] [address] Tire Molder: Edmund Gerard MD [id number] 09-10-2020 SARS-CoV-2 Not Detected Normal Not Detected [facility] Comment on above: Result Comment: (NOT E) This nucleic acid amplification test was developed and its performance characteristics determined by [employer]. Nucleic acid amplification tests include PCR and [...] detected) result in this assay. Performed At: [facility] [address] [place], [place] [id number] [facility] Ph:[phone] Performed By: #### A COV #### [facility] [address] [place] [address] Tire Molder: Edmund Gerard MD [id number] 07-10-2020 SARS-CoV-2 Not Detected Normal Not Detected [facility] Comment on above: Result Comment: (NOT E) This nucleic acid amplification test was developed and its performance characteristics determined by [employer]. Nucleic acid amplification tests include PCR and [...] detected) result in this assay. Performed At: [facility] [address] [facility], [place] [id number] Lonnie Perera MD Ph:[phone] Performed By: #### A COV #### [facility] [address] [place] [address] Tire Molder: Edmund Gerard MD Vital Signs Date Time Vital Sign Value Performing Clinician Charissa marroquin 09-23-2024 11:06-0500 Body height 162.6 cm Linda Diaz MD Work Phone: [employer] 09-23-2024 11:06-0500 Body mass index (BMI) [Ratio] 32.44 kg/m2 Linda Diaz MD Work Phone: [facility] 09-23-2024 11:06-0500 Body weight 85.73 kg Linda Diaz MD Work Phone: [facility] 09-23-2024 11:06-0500 Diastolic blood pressure 90 mm[Hg] Linda Diaz MD Work Phone: [facility] 09-23-2024 11:06-0500 Heart rate 71 /min Linda Diaz MD Work Phone: [facility] 09-23-2024 11:06-0500 SaO2% (BldA) [Mass fraction] 98 % Linda Diaz MD Work Phone: [facility] 09-23-2024 11:06-0500 Systolic blood pressure 142 mm[Hg] Linda Diaz MD Work Phone: [facility] 09-16-2024 09:14-0500 Body mass index (BMI) [Ratio] 32.12 kg/m2 Liam Stephanie DO Work Phone: [facility] 09-16-2024 09:14-0500 Body weight 84.88 kg Liam Stephanie DO Work Phone: [facility] 09-16-2024 09:14-0500 Diastolic blood pressure 84 mm[Hg] Liam Stephanie DO Work Phone: [facility] 09-16-2024 09:14-0500 Systolic blood pressure 124 mm[Hg] Liam Stephanie DO Work Phone: [facility] 08-03-2024 14:53-0500 Body mass index (BMI) [Ratio] 31.82 kg/m2 Liam Stephanie DO Work Phone: [facility] 08-03-2024 14:53-0500 Body weight 84.1 kg Liam Stephanie DO Work Phone: [facility] 08-03-2024 14:53-0500 Diastolic blood pressure 70 mm[Hg] Liam Stephanie DO Work Phone: [facility] 08-03-2024 14:53-0500 Systolic blood pressure 120 mm[Hg] Liam Brown DO Work Phone: [facility] 06-16-2024 14:11-0400 Body mass index (BMI) [Ratio] 31.43 kg/m2 Cathleen Melvin PA Work Phone: [facility] 06-16-2024 14:11-0400 Body weight 83.06 kg Cathleen Olea PA Work Phone: [facility] 06-16-2024 14:11-0400 Diastolic blood pressure 70 mm[Hg] Cathleen Olea PA Work Phone: [facility] 06-16-2024 14:11-0400 Systolic blood pressure 120 mm[Hg] Cathleen Melvin PA Work Phone: [facility] Healthcare Encounters Encounter Date Encounter Type Care Provider Facility Start: 10-17-2024 End: 10-18-2024 Refill Bisi Carcamo MEDICAL INSURANCE CLAIMS PROCESSOR Work Phone: [facility] Comment on above: 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 Start: 10-15-2024 End: 10-15-2024 [facility] Result Encounter Generic External Data Provider [facility] External Department Unsolicited Start: 10-15-2024 End: 10-15-2024 Clinis[facility] Result Encounter Generic External Data Provider [facility] External Department Unsolicited Start: 10-15-2024 End: 10-18-2024 Telephone encounter Colin Zimmerman RN [facility] Comment on above: Crestor Start: 10-09-2024 End: 10-09-2024 ambulatory [facility] Start: 09-23-2024 End: 09-23-2024 Office outpatient visit 15 minutes Linda Diaz MD Work Phone: [facility] Comment on above: Preop cardiovascular exam (Primary Dx); Paroxysmal atrial fibrillation (CMS-HCC); Mild mitral regurgitation; Mild tricuspid regurgitation; Primary hypertension; Hyperlipidemia, unspecified hyperlipidemia type; Encounter for pre-operative cardiovascular clearance Start: 09-23-2024 End: 09-23-2024 Patient encounter status Linda Diaz MD Work Phone: [facility] Start: 09-23-2024 End: 09-23-2024 Preoperative state Linda Diaz MD Work Phone: [facility] Start: 09-23-2024 Encounter for preprocedural cardiovascular examination [facility] Start: 09-23-2024 End: 09-24-2024 Refill Lashell Shaffer RN [facility] Comment on above: Med Refill Start: 09-21-2024 End: 09-21-2024 Telephone encounter Maegan Carter CMA [facility] Start: 09-16-2024 End: 09-16-2024 Bamboo flowsheet Liam Stephanie DO Work Phone: [facility] Start: 09-16-2024 End: 09-16-2024 Bamboo flowsheet Liam Stephanie DO Work Phone: [facility] Start: 09-16-2024 End: 09-16-2024 Office [...] Start: 09-07-2024 End: 09-09-2024 Refill Urvashi Carr MEDICAL INSURANCE CLAIMS PROCESSOR Work Phone: [facility] Comment on above: Gastroesophageal ref lux disease without esophagitis Start: 08-18-2024 End: 08-18-2024 Refill Bisi Carcamo MEDICAL INSURANCE CLAIMS PROCESSOR Work Phone: [facility] Comment on [...] Start: 07-30-2024 End: 07-30-2024 Refill Bisi Carcamo MEDICAL INSURANCE CLAIMS PROCESSOR Work Phone: [facility] Comment on above: 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 Start: 07-16-2024 End: 07-16-2024 ambulatory LIAM R STEPHANIE [facility] Start: 07-13-2024 End: 07-13-2024 Phys/qhp telephone evaluation 5-10 min Liam Stephanie DO Work Phone: [facility] Comment on above: Post-menopausal blee ding Start: 06-16-2024 End: 06-16-2024 Postop follow up visit related to original px Cathleen CASON Work Phone: [facility] Comment on above: Postoperative examin ation Start: 06-16-2024 End: 06-16-2024 Bamboo flowsheet Cathleen CASON Work Phone: [facility] Start: 06-16-2024 End: 06-16-2024 Bamboo flowsheet Cathleen CASON Work Phone: [facility] Start: 06-16-2024 End: 06-16-2024 ambulatory CATHLEEN OLEA Not Available Start: 06-05-2024 End: 06-07-2024 Refill Bisi Carcamo MEDICAL INSURANCE CLAIMS PROCESSOR Work Phone: [facility] Comment on above: 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 Start: 06-04-2024 End: 06-04-2024 Clinisync Result Encounter Generic External Data Provider [facility] External Department Unsolicited Start: 06-04-2024 End: 06-04-2024 Clinisync Result Encounter Generic External Data Provider [facility] External Department Unsolicited Start: 06-04-2024 End: 06-04-2024 ambulatory PHYSICIAN NO [facility] Work Phone: Start: 06-04-2024 End: 06-04-2024 Departed Referred PHYSICIAN NO [facility] Start: 06-02-2024 End: 06-02-2024 ambulatory PHILIPP LENNON [facility] Start: 05-24-2024 End: 05-24-2024 Clinisync Result Encounter Generic External Data Provider [facility] External Department Unsolicited Start: 05-24-2024 End: 05-24-2024 Clinisync Result Encounter Generic External Data Provider [facility] External Department Unsolicited Start: 05-05-2024 End: 05-05-2024 ambulatory LIAM STEPHANIE Not Available Start: 04-29-2024 End: 04-29-2024 ambulatory BISI CARCAMO Not Available Start: 04-07-2024 End: 04-07-2024 ambulatory LIAM STEPHANIE Not Available Start: 03-17-2024 End: 03-17-2024 ambulatory [facility] Start: 03-17-2024 End: 03-17-2024 ambulatory [facility] Start: 03-15-2024 End: 03-15-2024 ambulatory ADALID L FLORO Not Available Start: 03-04-2024 End: 03-04-2024 ambulatory BISI CARCAMO Not Available Start: 03-02-2024 End: 03-02-2024 ambulatory LINDA Mireles [facility] Start: 02-16-2024 End: 02-16-2024 ambulatory BISI A CARACMO Not Available Start: 02-16-2024 End: 02-16-2024 ambulatory ADALID L FLORO Not Available Start: 01-29-2024 End: 01-29-2024 ambulatory BISI A CARCAMO Not Available Start: 01-22-2024 End: 01-22-2024 ambulatory BISI CARCAMO Not Available Start: 01-20-2024 End: 01-20-2024 ambulatory BISI A CARCAMO Not Available Start: 10-29-2023 Telephone encounter Halima IRVIN [facility] Start: 10-28-2023 End: 10-28-2023 ambulatory BISI A CARCAMO Not Available Start: 11-22-2020 End: 11-23-2020 Patient encounter procedure SOHAILJAZZ MORGAN [facility] Start: 11-22-2020 End: 11-22-2020 Subsequent hospital visit by physician [facility] Start: 11-02-2020 End: 11-03-2020 Patient encounter procedure SOHAIL MORGAN [facility] Start: 11-02-2020 End: 11-02-2020 Subsequent hospital visit by physician [facility] Start: 10-19-2020 End: 10-20-2020 Patient encounter procedure SOHAIL MORGAN [facility] Start: 10-19-2020 End: 10-19-2020 Subsequent hospital visit by physician [facility] Start: 10-05-2020 End: 10-06-2020 Patient encounter procedure SOHAIL CATHY [facility] Start: 10-05-2020 End: 10-05-2020 Subsequent hospital visit by physician [facility] Start: 09-27-2020 End: 09-28-2020 Patient encounter procedure TOM MORGAN [facility] Start: 09-27-2020 End: 09-27-2020 Subsequent hospital visit by physician [facility] Start: 09-14-2020 End: 09-15-2020 Patient encounter procedure TOM MORGAN [facility] Start: 09-14-2020 End: 09-14-2020 Subsequent hospital visit by physician [facility] Start: 09-07-2020 End: 09-08-2020 Patient encounter procedure TOM MORGAN [facility] Start: 09-07-2020 End: 09-07-2020 Subsequent hospital visit by physician [facility] Start: 08-31-2020 End: 09-01-2020 Patient encounter procedure TOM MORGAN [facility] Start: 08-31-2020 End: 08-31-2020 Subsequent hospital visit by physician [facility] Start: 08-16-2020 End: 08-17-2020 Patient encounter procedure TOM MORGAN [facility] Start: 08-16-2020 End: 08-16-2020 Subsequent hospital visit by physician [facility] Start: 07-10-2020 Patient encounter procedure NUZHAT MIKE Facility: Start: 07-07-2020 End: 07-08-2020 Patient encounter procedure TOM MORGAN [facility] Start: 07-07-2020 End: 07-07-2020 Subsequent hospital visit by physician [facility] Procedures Date Procedure Procedure Detail Performing Clinician Start: 10-15-2024 ALL CBC WITH AUTO DIFF Liam Stephanie DO Work Phone: Start: 09-23-2024 Ecg routine ecg w/le ast 12 lds w/i&r Linda Diaz MD Work Phone: Start: 08-03-2024 Urnls dip stick/tabl et rgnt non-auto w/o micrscp Liam Stephanie DO Work Phone: Start: 07-19-2024 Mammography 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 Work Phone: Start: 06-04-2024 ALL CBC WITH AUTO DIFF Liam Stephanie DO Work Phone: Start: 06-02-2024 Follow-up visit Follow-up PHILIPP LENNON Start: 05-24-2024 ALL CBC WITH AUTO DIFF Liam Stephanie DO Work Phone: Start: 02-16-2024 Microscopic observat ion [Identifier] in Cervix by Cyto stain Generic Provider Start: 04-21-2023 Mammography Halima Viveros MA Start: 09-14-2020 COVID-19 AMBULATORY TAIWO S MORGAN Start: 09-07-2020 COVID- AMBULATORY TAIWO S MORGAN Start: 08-31-2020 COVID-19 AMBULATORY TAIWO S MORGAN Start: 08-16-2020 COVID- AMBULATORY TAIWO S MORGAN Start: 07-07-2020 COVID- AMBULATORY TAIWO S MORGAN Start: 01-31-2014 Colonoscopy Halima Viveros MA Plan of Treatment Date Care Activity Detail Author Start: 02-15-2029 Screening for malign ant neoplasm of cervix [facility] Start: 07-03-2027 Screening for malign ant neoplasm of cervix [facility] Start: 02-15-2027 Screening for malign ant neoplasm of cervix Pap Smear [facility] Start: 03-05-2026 Glaucoma screening Diabetes: R etinopathy Screening [facility] Start: 09-23-2025 Adult BMI Screening Adult BMI Screen ing [facility] Start: 09-23-2025 Tobacco Screening Tobacco Screening [facility] Start: 07-19-2025 Screening for malign ant neoplasm of breast Mammogram [facility] Start: 06-02-2025 Adult BMI Screening Adult BMI Screen ing [facility] Start: 06-02-2025 Tobacco Screening Tobacco Screening [facility] Start: 03-07-2025 End: 03-07-2025 Patient encounter procedure 03/07/2025 10:00 AM EDT Office Visit [facility] [address] [place] [address] Charles Frye MD [address] [place] [place] [address] [facility] Start: 01-19-2025 Urine screening for protein Diabetes: Urine Protein Screening [facility] Start: 09-23-2024 End: 09-23-2024 Patient encounter procedure 09/23/2024 11:15 AM EST Office Visit [facility] [address] [place] [id number] Linda Diaz MD [address] [place] [address] [facility] Start: 09-16-2024 End: 09-16-2024 Patient encounter procedure [facility] Comment on above: Arrived Start: 08-03-2024 End: 08-03-2024 Patient encounter procedure [facility] Comment on above: Arrived Start: 06-16-2024 End: 06-16-2024 Patient encounter procedure 06/16/2024 2:10 PM EDT Office Visit [facility] [address] [address] Cathleen Olea PA [address] [place], [place] [address] Arrived [facility] Comment on above: Arrived Start: 06-04-2024 End: 06-04-2024 Patient encounter procedure 06/04/2024 7:30 AM EDT Procedure Visit [facility] Liam Brown DO [address] Giovanni Pabon, [facility] Start: 05-30-2024 COVID-19 Vaccine ( season) COVID-19 Vaccine ( season) [facility] Start: 05-30-2024 Influenza vaccination [facility] Start: 04-21-2024 Screening for malign ant neoplasm of breast Mammogram [facility] Start: 04-20-2024 Hemoglobin A1c measurement Diabetes: Hemoglobin A1C [facility] Start: 02-01-2024 Screening for malign ant neoplasm of colon [facility] Start: 01-23-2024 Urine screening for protein Diabetes: Urine Protein Screening [facility] Start: 01-20-2024 End: 01-20-2024 Patient encounter procedure 01/20/2024 2:00 PM EDT Office Visit [facility] [address] [place] [phone] Bisi Carcamo NP [address] [place] [address] [facility] Start: 12-06-2023 Glaucoma screening Diabetes: R etinopathy Screening [facility] Start: 04-23-2023 Hemoglobin A1c measurement Diabetes: Hemoglobin A1C [facility] Start: 03-05-2022 DTaP,Tdap and Td Vac cines (2 - Td or Tdap) DTaP,Tdap and Td Vaccines (2 - Td or Tdap) [facility] Start: 05-30-2020 Influenza vaccination Flu vaccine (# 1) [place], [place] Start: 2012 Administration of varicella zoster vaccine Zoster (Shingles) Vaccine (1 of 2) [facility] Start: 2012 Screening for malign ant neoplasm of breast Breast cancer screen [place], [place] Start: 2012 Screening for malign ant neoplasm of colon Colon cancer screen colonoscopy [place], [place] Start: 2012 Shingles Vaccine (1 of 2) Gomez gles Vaccine (1 of 2) [place] Start: 2002 Lipid panel Lipid screen [place], [place] Start: 1983 Screening for malign ant neoplasm of cervix [facility] Start: 1981 DTaP/Tdap/Td vaccine (1 - Tdap) DTaP/Tdap/Td vaccine (1 - Tdap) [place] Start: 1980 Adult BMI Follow Up Plan Adult BMI Follow Up Plan [facility] Start: 1977 HIV screening HIV screen [facility] [place] [place] Start: 1974 Depression Screening Depression [facility] Start: 1962 Hepatitis C screening Hepatitis C sc ghulam [place], [place] Start: 1962 Screening for malign ant neoplasm of colon [facility] End: 10-19-2020 COVID-19 COVID-19 Lab Routine Once for 1 Occurrences starting 10/19/2020 until 10/19/2020 [place] Comment on above: Once for 1 Occurrenc es starting 10/19/2020 until 10/19/2020 COVID-19 [facility], [place] End: 11-02-2020 COVID-19 COVID-19 Lab Routine Once for 1 Occurrences starting 11/02/2020 until 11/02/2020 [place] Comment on above: Once for 1 Occurrenc es starting 11/02/2020 until 11/02/2020 End: 11-22-2020 COVID-19 COVID-19 Lab Routine Once for 1 Occurrences starting 11/22/2020 until 11/22/2020 [facility] Work Phone: Comment on above: Once for 1 Occurrenc es starting 11/22/2020 until 11/22/2020 End: 07-07-2020 Covid-19 Ambulatory Covid-19 Ambulatory Lab Routine Once for 1 Occurrences starting 07/07/2020 until 07/07/2020 [place] Comment on above: Once for 1 Occurrenc es starting 07/07/2020 until 07/07/2020 Covid-19 Ambulatory [place], [place] End: 09-07-2020 Covid-19 Ambulatory Covid-19 Ambulatory Lab Routine Once for 1 Occurrences starting 09/07/2020 until 09/07/2020 [place] Comment on above: Once for 1 Occurrenc es starting 09/07/2020 until 09/07/2020 End: 09-14-2020 Covid-19 Ambulatory Covid-19 Ambulatory Lab Routine Once for 1 Occurrences starting 09/14/2020 until 09/14/2020 [place] Comment on above: Once for 1 Occurrenc es starting 09/14/2020 until 09/14/2020 End: 09-27-2020 Covid-19 Ambulatory Covid-19 Ambulatory Lab Routine Once for 1 Occurrences starting 09/27/2020 until 09/27/2020 [facility] [place] Comment on above: Once for 1 Occurrenc es starting 09/27/2020 until 09/27/2020 End: 10-05-2020 Covid-19 Ambulatory Covid-19 Ambulatory Lab Routine Once for 1 Occurrences starting 10/05/2020 until 10/05/2020 [facility] [place] Comment on above: Once for 1 Occurrenc es starting 10/05/2020 until 10/05/2020 End: 08-16-2020 Covid-19 Ambulatory Covid-19 Ambulatory Lab Routine Once for 1 Occurrences starting 08/16/2020 until 08/16/2020 [facility] [place] Comment on above: Once for 1 Occurrenc es starting 08/16/2020 until 08/16/2020 End: 08-31-2020 Covid-19 Ambulatory Covid-19 Ambulatory Lab Routine Once for 1 Occurrences starting 08/31/2020 until 08/31/2020 [facility] [place] Comment on above: Once for 1 Occurrenc es starting 08/31/2020 until 08/31/2020 End: 09-23-2025 Lipid 1996 panel - Serum or Plasma Lipid profile Lab Routine Primary hypertension 1 Occurrences starting 09/23/2024 until 09/23/2025 [facility] Work Phone: Comment on above: 1 Occurrences starti ng 09/23/2024 until 09/23/2025 Immunizations Immunization Date Immunization Notes Care Provider Prosper conde 07-24-2023 influenza, injectabl e, quadrivalent, preservative [facility] 07-24-2023 influenza virus vacc ine, unspecified formulation Generic Provider [facility] 06-11-2022 influenza, injectabl e, quadrivalent, preservative free Generic Provider [facility] 09-07-2020 influenza, high dose seasonal, preservative-free Generic Provider [facility] 09-30-2019 Influenza, injectabl e, Madin Chitra Canine Kidney, preservative free, quadrivalent Generic Provider [facility] 07-07-2019 Seasonal, quadrivale nt, recombinant, injectable influenza vaccine, preservative free Generic Provider [facility] 09-14-2018 influenza, injectabl e, quadrivalent, preservative free Generic Provider [facility] 06-29-2017 influenza, injectabl e, quadrivalent, contains preservative Generic Provider [facility] 08-03-2015 influenza, seasonal, injectable, preservative free Generic Provider [facility] 03-05-2012 tetanus toxoid, redu alyx diphtheria toxoid, and acellular pertussis vaccine, adsorbed Generic Provider [facility] Payers Date Payer Category Payer [facility] [id number] 2020 Unknown [facility] [id number] 2020-Present [phone] [address] [place] [address] [id number] [id number] 2010 [facility] Managed Care - Other ANTHEM [id number] [id number] 2010 Unknown [id number] 1.2.840.532550.1.13.239. 2.7.3.311740.315 1962 Unknown [id number] 2.16.840.1.689205.3.579. 2.593 1962 Unknown [id number] 2.16.840.1.825204.3.579. 2.175 1962 Unknown [id number] 2.16.840.1.567112.3.579. 2.175 1962 Unknown [id number] 2.16.840.1.571166.3.579. 2.175 1962 Unknown [id number] 2.16.840.1.313906.3.579. 2.175 1962 Unknown [id number] 2.16.840.1.447762.3.579. 2.175 1962 Unknown [id number] 2.16.840.1.314590.3.579. 2.125 1962 Unknown [id number] 2.16.840.1.219131.3.579. 2.1259 1962 Unknown [id number] 2.16.840.1.293420.3.579. 2.1258 1962 Unknown [id number] 2.16.840.1.362942.3.579. 2.1259 1962 Unknown [id number] 2.16.840.1.644632.3.579. 2.125 1962 Unknown [id number] 2.16.840.1.543183.3.579. 2.125 1962 Unknown [id number] 2.16.840.1.792592.3.579. 2.1258 1962 Unknown [id number] 2.16.840.1.139908.3.579. 2.1259 1962 Unknown [id number] 2.16.840.1.330470.3.579. 2.125 1962 Unknown [id number] 2.16.840.1.254959.3.579. 2.1258 1962 Unknown [id number] 2.16.840.1.719962.3.579. 2.1258 1962 Unknown [id number] 2.16.840.1.086915.3.579. 2.1258 1962 Unknown [id number] 2.16.840.1.201733.3.579. 2.1258 1962 Unknown [id number] 2.16.840.1.014909.3.579. 2.1258 1962 Unknown [id number] 2.16.840.1.251269.3.579. 2.1285 1962 Unknown [id number] 2.840.1.452111.3.579. 2.1285 1962 Unknown [id number] 2.16840.1.789372.3.579. 2.1285 1962 Unknown [id number] 2.16.840.1.510248.3.579. 2.1285 1962 Unknown [id number] 2.16.840.1.614510.3.579. 2.1285 1962 Unknown [id number] 2.840.1.418651.3.579. 2.1285 1962 Unknown [id number] 2.16.840.1.202570.3.579. 2.1285 1962 Unknown [id number] 2.16.840.1.714922.3.579. 2.1285 1962 Unknown [id number] 2.16.840.1.928996.3.579. 2.1285 1962 Unknown [id number] 2.16840.1.239141.3.579. 2.1286 1959 Self-pay Unknown [id number] 2.16.840.1.376862.3.579. 2.531 Social History Date Type Detail Facility Tobacco smoking stat us NHIS Unknown if [facility] Start: 1960 [facility] Start: 10-28-2022 End: 07-10-2023 Tobacco smoking status NHIS Never smoked tobacco [facility] Start: 10-28-2022 End: 07-10-2023 Tobacco use and exposure Smokeless tobacco non-user [facility] Start: 10-28-2023 End: 09-23-2024 Alcohol intake Current drinker of alcohol (finding) [facility] Start: 11-01-2020 End: 10-28-2023 History of Social function [facility] Start: 11-01-2020 End: 10-28-2023 Tobacco use panel [facility] Start: 07-10-2023 Alcohol Comment Alcohol: 1 or 2 drinks on a typical day/monthly or less Caffeine: 1-2 cups/day soda/pop [facility] Start: 1960 Sex Assigned At Female [facility] Start: 06-16-2024 End: 09-16-2024 Alcoholic beverage intake Ex-drinker (finding) [facility] Do you belong to any clubs or organizations such as religion groups, unions, fraternal or athletic groups, or [...] Dates Cement Bn Bio 40 gm Rpl [id number] - [id number] Start: 11-06-2022 Cement Bn Bio 40 gm Rpl [id number] - [id number] Start: 11-06-2022 Component Fem 9 Randy Kn Lt Crcte Rtn Cmnt Persona Cocr - [id number] Start: 11-06-2022 Stem Xtn 30+ Mm 14mm Persona Tpr Kn Tib - [id number] Start: 11-06-2022 Component Ptlr 3 2mm Persona Alply Kn Strl Lf - [id number] Start: 11-06-2022 Insert Artc 8-9 C-D 10mm Kn Lt Vivacit-E Persona Strl - [id number] Start: 11-06-2022 Baseplate Tib 5d D Kn Lt Cmnt Stm Persona Tiv Strl - [id number] Start: 11-06-2022 Goals Date Patient Goal Desired Activity /State Personal health goal Comment on above: Formatting of this n ote might be different from the original. Evaluation of progress towards goal: Maximize work with PT at discharge to strengthen L KNEE Clinical Notes 10-29-2023 to 10-15-2024 Telephone Encounter - Colin Zimmerman RN - 10/15/2024 3:59 PM ESTTelephone Encounter - Ashlyn Horner APRN-DEBRA - 10/15/2024 3:59 PM Boris Diaz MD - 09/23/2024 11:15 AM EST Note Date & Type Note Facility 10-15-2024 Miscellaneous Notes Images from the original note were not included. Colin Zimmerman RN 10/15/2024 3:58 PM EST Back to Top Lab results and Jose M recommendations called and reviewed with patient. Pt agreeable to crestor 20 mg daily and will fuas. Sherry Mcguire RN 10/14/2024 10:08 AM EST Lm asking pt to return call regarding lipids. Gloria Kee RN 10/12/2024 8:46 AM EST VM left with the results and MS recommendations. Asked pt to please call office to confirm that message was received and to see where a new prescription should be sent. Linda Diaz MD 10/11/2024 11:36 AM EST Reviewed. Recommended increasing Crestor to 20 mg daily. Continue with low-fat diet, exercise and weight loss. Thank you signed documented in this encounter [facility] 10-15-2024 Telephone encounter Note Images from the original note were not included. Colin Zimmerman RN 10/15/2024 3:58 PM EST Back to Top Lab results and Jose M recommendations called and reviewed with patient. Pt agreeable to crestor 20 mg daily and will fuas. Sherry Mcguire RN 10/14/2024 10:08 AM EST Lm asking pt to return call regarding lipids. Glorai Kee RN 10/12/2024 8:46 AM EST VM left with the results and MS recommendations. Asked pt to please call office to confirm that message was received and to see where a new prescription should be sent. Linda Diaz MD 10/11/2024 11:36 AM EST Reviewed. Recommended increasing Crestor to 20 mg daily. Continue with low-fat diet, exercise and weight loss. Thank you [facility] 10-15-2024 Telephone encounter Note signed [facility] 09-23-2024 Miscellaneous Notes Last OV 09/23/24 Last CBC 10/28/22.slm documented in this encounter [facility] 09-23-2024 Telephone encounter Note Last OV 09/23/24 Last CBC 10/28/22.slm [facility] 09-23-2024 History of Presen t illness Narrative Hafsa Flores Date of visit: 09/23/2024 Date of : [...] Preop clearance 10/21/2024 Dr Brown hysterectomy fax [phone] History of Present Illness Patient here for follow-up visit. Requesting cardiac clearance for planned hysterectomy procedure coming up in the near future. Stated that she was diagnosed with a precancer cells. Patient with history of paroxysmal atrial fibrillation, type 2 diabetes mellitus, hypertension, hyperlipidemia. Stated that overall she is doing well. 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 [...] no hospital stay Diabetes mellitus, type 2 ([facility]) no medications-diet controlled Gastritis 2015 GERD (gastroesophageal [...] 11/06/2022 Performed by Charles Frye MD at [facility] BIOPSY 2021 TONSILLECTOMY 1972 childhood TUBAL [...] Resource Strain: Low Risk (01/19/2024) Received from [facility] Overall Financial Resource Strain (CARDIA) Difficulty of Paying Living Expenses: Not hard at all Food Insecurity: No Food Insecurity (09/23/2024) Hunger Screening Food Insecurity - Worry: Never True Food Insecurity - Inability: Never True Transportation Needs: No Transportation Needs (01/19/2024) Received from [facility] PRAPARE - Transportation Lack of Transportation (Medical): No Lack of Transportation (Non-Medical): No Physical Activity: Insufficiently Active (01/19/2024) Received from [facility] Exercise Vital Sign Days of Exercise per Week: 2 days Minutes of Exercise per Session: 20 min Stress: Stress Concern Present (01/19/2024) Received from [facility] [place] [employer] - Occupational Stress Questionnaire Feeling of Stress : To some extent Social Connections: Moderately Integrated (01/19/2024) Received from [facility] Social Connection and Isolation Panel [NHANES] Frequency of Communication with Friends and Family: Once a week Frequency of Social Gatherings with Friends and Family: More than three times a week Attends Yarsani Services: 1 to 4 times per year Active Member of Clubs or Organizations: No Attends Club or Organization Meetings: Not on file Marital Status: Living with partner Interpersonal Safety: Not on file Housing Instability: Unknown (01/19/2024) Received from [facility] Housing Stability Vital Sign Unable to [...] in about 6 months (around 2025). PCP: Nuzhat Mike MD Referring Physician: Nuzhat Mike MD [address] [place] [address] documented in this encounter [facility] 09-21-2024 Miscellaneous Notes Left message for patient to remind them to bring their most current medication list with them to their appointment. documented in this encounter [facility] 09-21-2024 Telephone encounter Note Left message for patient to remind them to bring their most current medication list with them to their appointment. [facility] 09-16-2024 History of Presen t illness Narrative Reason for Appointment: Patient ID: Hafsa Flores is a 64 y.o. female who presents for Pre-op Visit Patient presents today for Pre Op appointment. Patient is scheduled to undergo Da David assisted Laparoscopic Hysterectomy, possible exploratory laparotomy, possible BSO, possible cystoscopy on 10/21/[address] Brown at [facility]. MEDICATIONS Current Outpatient Medications Medication Instructions cholecalciferol [...] Ambulatory Problems Diagnosis Date Noted Primary hypertension ([facility]) 11/28/2016 Anxiety 07/19/2020 Chronic eczematous otitis externa of both ears 04/26/2021 Gastro-esophageal reflux disease without esophagitis 01/20/2024 Hematuria, microscopic 11/10/2017 Hyperlipidemia ([facility]) 11/03/2020 Irregular periods 08/06/2015 Menopausal and female climacteric states 05/04/2017 Mitral valve prolapse 07/19/2020 Class 1 obesity 07/09/2022 Palpitations 01/20/2024 Primary osteoarthritis of both knees 07/09/2022 Type 2 diabetes mellitus without complication ([facility]) 01/20/2024 Vitamin D deficiency 07/09/2022 Resolved Ambulatory Problems Diagnosis Date Noted Mixed dyslipidemia ([facility]) 07/24/2023 Osteoarthritis of left knee 07/09/2022 Vaginal [...] nursing note reviewed. Exam conducted with a administrative resources associate present. Vitals: Estimated body mass index is [...] reviewed, and patient is to proceed to [facility] OR. Follow Up: Patient is to follow up at 1 & 6 weeks post operative to assess proper healing and recovery from procedure. Documented by Salina Salgado LPN on behalf of: Liam Brown DO documented in this encounter [facility] 09-14-2024 Telephone encounter Note Refills sent. [facility] 09-14-2024 Miscellaneous Notes Refills sent. documented in this encounter [facility] 09-09-2024 Telephone encounter Note Dexlansoprazole is the name of the rx she is currently taking. [facility] 09-09-2024 Miscellaneous Notes Dexlansoprazole is the name of the rx she is currently taking. Lmom for pt to cb, please ask cornelia's message and send back to her documented in this encounter [facility] 09-09-2024 Telephone encounter Note Lmom for pt to cb, please ask cornelia's message and send back to her [facility] 09-08-2024 Telephone encounter Note Patient is requesting dexilant - this works best for her. She thinks her insurance is trying to get her to try something else. She would prefer to stay on the dexilant. Uses [facility] in [place]. Thank you. [facility] 09-08-2024 Miscellaneous Notes Patient is requesting dexilant - this works best for her. She thinks her insurance is trying to get her to try something else. She would prefer to stay on the dexilant. Uses [facility] in [place]. Thank you. documented in this encounter [facility] 08-03-2024 History of Presen t illness [...] Ambulatory Problems Diagnosis Date Noted Primary hypertension ([facility]) 11/28/2016 Anxiety 07/19/2020 Chronic eczematous otitis externa [...] ear infection GERD (gastroesophageal reflux disease) Hypertension (CMS/[facility]) Mitral valve prolapse Social History Tobacco Use [...] nursing note reviewed. Exam conducted with a administrative resources associate present. Vitals: Estimated body mass index is [...] Liam Brown DO documented in this encounter [facility] 07-13-2024 History of Presen t illness Narrative Reason for Appointment: Patient ID: Hafsa Flores is a 64 y.o. female who presents for No chief complaint on file. Patient presents today via telephone call for a telehealth appointment. Patients Phone #: [phone] (mobile) Current Medications: has a current medication list which includes the following prescription(s): cholecalciferol, cranberry, dexlansoprazole, eliquis, fluocinolone, metoprolol succinate xl, and rosuvastatin. Medical History: Active Ambulatory Problems Diagnosis Date Noted Primary hypertension ([facility]) 11/28/2016 Anxiety 07/19/2020 Chronic eczematous otitis externa of both ears 04/26/2021 Gastro-esophageal reflux disease without esophagitis 01/20/2024 Hematuria, microscopic 11/10/2017 Hyperlipidemia ([facility]/H[facility]) 11/03/2020 Irregular periods 08/06/2015 Menopausal and female [...] Medical History: Diagnosis Date Atrial fib/flutter, transient (CMS/[facility]) Chronic ear infection GERD (gastroesophageal reflux disease) Hypertension ([facility]) Family History Problem Relation Name Age of [...] Liam Brown DO documented in this encounter [facility] 06-16-2024 History of Presen t illness [...] Ambulatory Problems Diagnosis Date Noted Primary hypertension ([facility]) 11/28/2016 Anxiety 07/19/2020 Chronic eczematous otitis externa of both ears 04/26/2021 Gastro-esophageal reflux disease without esophagitis 01/20/2024 Hematuria, microscopic 11/10/2017 Hyperlipidemia ([facility]) 11/03/2020 Irregular periods 08/06/2015 Menopausal and female climacteric states 05/04/2017 Mitral valve prolapse 07/19/2020 Class 1 obesity 07/09/2022 Palpitations 01/20/2024 Primary osteoarthritis of both knees 07/09/2022 Type 2 diabetes mellitus without complication ([facility]) 01/20/2024 Vitamin D deficiency 07/09/2022 Resolved Ambulatory Problems Diagnosis Date Noted Mixed dyslipidemia ([facility]) 07/24/2023 Osteoarthritis of left knee 07/09/2022 Vaginal [...] D&C Hysteroscopy with myosure performed at [facility] with Dr. Brown. Pathology results was reviewed with the patient in great detail and all restrictions have been lifted. Follow Up: Patient is to return to the office for annual exam unless needed otherwise. Documented by KAMLA Sharpe on behalf of: KAMLA Sharpe documented in this encounter [facility] 10-30-2023 Telephone encounter Note sent [facility] 10-30-2023 Miscellaneous Notes sent Pt called stating that in her appt she asked if she could get diflucan sent over as well with an abx to the pharm but they only received a script for the abx. Can she get diflucan as well? documented in this encounter [facility] 10-29-2023 Telephone encounter Note Pt called stating that in her appt she asked if she could get diflucan sent over as well with an abx to the pharm but they only received a script for the abx. Can she get diflucan as well? [facility] Evaluation note Diagnosis Vaginal yeast infection- Primary Candidiasis of vulva and vagina documented in this encounter [facility] HealthcareEvaluation noteNo assessment information availableW[facility] Work Phone: Evaluation note* Diagnosis Post-menopausal bleeding Postmenopausal bleeding documented in this encounter [facility] HealthcareEvaluation note* Diagnosis Chronic eczematous otitis externa of left ear documented in this encounter [facility] HealthcareEvaluation note* Diagnosis Post-menopausal bleeding Postmenopausal bleeding Burning with urination Dysuria documented in this encounter [facility] HealthcareEvaluation note* Diagnosis Mixed dyslipidemia (CMS/HCC) documented in this encounter [facility] HealthcareEvaluation note* Diagnosis Postoperative examination Follow-up examination, following unspecified surgery documented in this encounter [facility] HealthcareEvaluation note* Diagnosis Gastroesophageal reflux disease without esophagitis Esophageal reflux documented in this encounter [facility] HealthcareEvaluation note* Diagnosis Gastroesophageal reflux disease without esophagitis Esophageal reflux documented in this encounter [facility] HealthcareEvaluation note* Diagnosis Vitamin D deficiency documented in this encounter [facility] HealthcareEvaluation note* Diagnosis Chronic eczematous otitis externa of left ear documented in this encounter [facility] HealthcareEvaluation note* Diagnosis Preop examination Unspecified pre-operative examination Post-menopausal bleeding Postmenopausal bleeding Pelvic pain in female Unspecified symptom associated with female genital organs Dyspareunia in female Dysmenorrhea documented in this encounter [facility] HealthcareEvaluation note* Diagnosis Urinary tract [...] pre-operative cardiovascular clearance documented in this encounter [facility]* Diagnosis Urinary tract infection with hematuria, site unspecified- Primary Renal cyst Unspecified congenital cystic kidney disease Nephrolithiasis Calculus of kidney Hematuria, microscopic Microscopic hematuria Nephrolithiasis- Primary Calculus of kidney Hematuria, microscopic Microscopic hematuria Renal cyst Unspecified congenital cystic kidney disease Paroxysmal atrial fibrillation (CMS-HCC) Atrial fibrillation documented in this encounter [facility]* Diagnosis Chronic eczematous otitis externa of left ear documented in this encounter [facility] HealthcareInstructionsNot on filedocumented in this encounterProMediil Health SystemInstructionsNot on filedocumented in this encounterProMediil Health SystemInstructionsNot on filedocumented in this encounterProMedica Health SystemInstructionsNot on filedocumented in this encounterProDay[facility] Summary Purpose Family History No Family History Records FoundNo Family History Records FoundNo Family History Records FoundNo Family History Records FoundNo Family History Records FoundNo Family History Records FoundNo Family History Records Found Advance Directives Advance Directive Response Recorded Date/ Time Advance Directives No May 24, 2022 5:41pm Date Activated Date Inactivated Comments 11/06/2022 1:08 PM 11/06/2022 8:11 PM Date Activated Date Inactivated Comments 11/06/2022 1:08 PM 11/06/2022 8:11 PM Additional Source Comments INFORMATION SOURCE (unrecogn ized section and content) DATE CREATED AUTHOR 07/16/2020 [facility] DATE CREATED AUTHOR AUTHOR'S ORGANIZ ATION 09/10/2020 [facility] DATE CREATED AUTHOR AUTHOR'S ORGANIZ ATION 11/24/2020 [facility] DATE CREATED AUTHOR AUTHOR'S ORGANIZ ATION 11/08/2021 [facility] DATE CREATED AUTHOR AUTHOR'S ORGANIZ ATION 06/12/2024 [facility] DATE CREATED AUTHOR AUTHOR'S ORGANIZ ATION 09/19/2024 [facility] EPIC DATE CREATED AUTHOR AUTHOR'S ORGANIZ ATION 10/13/2024 [facility] Care Teams (unrecognized sec tion and content) Invasive Manager Relationship Specialty Start Date End Date Vanesa Santa NP [address] [place], [place] [id number] PCP - [facility] 05/30/22 Nuzhat Mike MD [address] [place], [place] [id number] PCP - General Family Medicine 02/04/23 Team Status: Active Member Role Status Dates PHYSICIAN NO FAMILY Primary Care Provider Active Team Status: Inactive Member Role Status Dates PHYSICIAN NO FAMILY Primary Care Provider Active Start: June 04, 2024 End: June 04, 2024 Liam Brown DO Attending Provider Active Start : June 04, 2024 End: June 04, 2024 Invasive Manager Relationship Specialty Start Date End Date Nuzhat Mike MD [address] [place], [place] [id number] PCP - General Family Medicine 02/04/23 Bisi Carcamo NP [address] [place] [address] PCP - [employer] 03/29/24 Invasive Manager Relationship Specialty Start Date End Date Nuzhat Mike MD [address] [place] [address] PCP - General Family Medicine 02/04/23 Bisi Carcamo NP [address] [place] [address] PCP - [employer] 03/29/24 Invasive Manager Relationship Specialty Start Date End Date Nuzhat Mike MD [address] [place] [address] PCP - General Family Medicine 02/04/23 Bisi Carcamo NP [address] [place] [address] PCP - [employer] 03/29/24 Invasive Manager Relationship Specialty Start Date End Date Nuzhat Mike MD [address] [place] [facility] [place] [address] PCP - General Family Medicine 02/04/23 Bisi Carcamo NP [address] [place] [address] PCP - [employer] 03/29/24 Invasive Manager Relationship Specialty Start Date End Date Nuzhat Mike MD [address] [place] [address] PCP - General Family Medicine 02/04/23 Bisi Carcamo NP [address] [place] [address] PCP - [employer] 03/29/24 Invasive Manager Relationship Specialty Start Date End Date Nuzhat Mike MD [address] [place] [address] PCP - General Family Medicine 02/04/23 Bisi Carcamo NP [address] [place] [address] PCP - [employer] 03/29/24 Invasive Manager Relationship Specialty Start Date End Date Nuzhat Mike MD [address] [place] [address] PCP - General Family Medicine 02/04/23 Bisi Carcamo [employer] [address] [place] [address] PCP - [employer] 03/29/24 Invasive Manager Relationship Specialty Start Date End Date Nuzhat Mike MD [address] [place] [address] PCP - General Family Medicine 05/03/19 Invasive Manager Relationship Specialty Start Date End Date Nuzhat Mike MD [address] [place] [address] PCP - General Family Medicine 05/03/19 Invasive Manager Relationship Specialty Start Date End Date Nuzhat Mike MD [address] [place] [address] PCP - General Family Medicine 8/5/19 Invasive Manager Relationship Specialty Start Date End Date Nuzhat Mike MD [address] [place] [address] PCP - General Family Medicine 05/03/19 Goals [...] Preop clearance 09/30 Dr Brown hysterectomy fax [phone] Reason Onset Date Comments Med Refill 09/23/2024 Reason Onset Date Comments Crestor 10/15/2024 FOR RECORDS PERTAINING TO PATIENTS WHO ARE [...] BE BASED ON THE PRIMARY CLINICAL RECORDS. Payment plugin. provides no warranty or guarantee of the accuracy or completeness of information in this document.
[2024-10-21] MEDS: LACTATED RINGER'S SOLUTION 1,000 ML 50 ML IV (12:03)
[2024-10-21 12:04] LABS: Glucometer 96 mg/dL (74-106)
[2024-10-21] MEDS: CEFAZOLIN SODIUM 2 GM/50 ML D5W PREMIX IV (13:49)
[2024-10-21] MEDS: LACTATED RINGER'S SOLUTION 1,000 ML 75 ML IV (15:19)
--- NOTE | 2024-10-21 16:31 | P.ON_ITS ---
Brief Operative Note Date of procedure: 10/21/24 Pre-op diagnosis general: simple hyperplasia without atypia, pmb Post-op diagnosis: same as pre-op Procedure: NAME OF PROCEDURE: CAMERON partial bilateral salpingectomy, with bilateral oopherectomy, WITH CYSTOSCOPY PROCEDURE: Patient was taken back to the Operating Room where she was given general anesthesia without difficulty. She was then prepped and draped in the normal sterile fashion. A Pfannenstiel skin incision was then made 2 cm above the symphysis and pubis and carried down to underlying rectus fascia using a Bovie. The fascia was incised in the midline and extended bilaterally using Garcia scissors. Two Cinda clamps were placed on the superior aspect of the fascia and dissected off the underlying rectus muscle. The same was performed on the inferior aspect as well. The muscle was then in the midline. The peritoneum was identified and entered bluntly. Peritoneum was then extended superiorly and inferiorly with good visualization of the bladder. An O'Sulliv an-O-John retractor was placed into the patient's abdomen. The bowel was packed away with moist laparotomy sponges and the bladder blade was inserted. A Leahey tenaculum was placed on the patient's uterus and used for retraction. LigaSure apparatus was then used to come across the infundibular pelvic ligament on the patient's right side which was then cauterized and transected. This was carried down serially through the broad ligament and across the round ligament. The bladder flap was then created using the Metzenbaum scissors, and the bladder was easily dissected off the patient's lower uterine segment. A curved Anatoliy was placed across the uterine artery on the right side which was clamped, transected, and suture ligated using #0 Monocryl. This was performed on the contralateral side as well. The bladder was further dissected and a Zeppelin clamp was then placed across the uterosacral and cardinal ligaments. This was transected and suture ligated using #0 Monocryl. This was performed on the contralateral side as well. The uterus was then amputated using Jorgensonscissors. The patient's cuff was closed using #0 PDS in a running locked fashion and this was transfixed to the ipsilateral uterosacral and cardinal ligaments. Excellent hemostasis was assured. The patient's abdomen was copiously irrigated using warm saline. Cystoscopy was performed. Bladder was intact. Efflux was noted from both ostia. Cystoscope was removed. After excellent hemostasis was assured, all instruments were removed from the patient's abdomen. The patient's peritoneum was closed using 3-0 Vicryl in a running fashion. The patient's fascia was closed using #0 Vicryl in a running fashion. The patient's skin was closed using carlton. The patient tolerated the procedure well. Sponge, lap, and needle counts were correct times two. Patient taken to the Recovery Room in stable condition. please note robotic hysterectomy was attempted and aborted dt size of uterus and extensive endometriosis with adhesions Anesthesia: KATHLEEN Surgeon: Liam Brown [facility] Director: Sherita Vernon Estimated blood loss (mL): 300 Pathology: other (partial tubes uterus and cervix) Condition: stable Disposition: PACU Urinary Catheter Management Urinary Catheter Management Urethral: Cath placed during this visit: no
[2024-10-21] MEDS: ONDANSETRON PF 4 MG/2 ML VIAL IV (18:55)
[2024-10-21] MEDS: KETOROLAC TROMETHAMINE 30 MG/ML VIAL IVP (19:57)
[2024-10-21] MEDS: CEFAZOLIN SODIUM/DEXTROSE,ISO 2 GM/50 ML PIGGYBACK IV (19:57)
[2024-10-21] MEDS: PROMETHAZINE HCL 25 MG in 0.9 % SODIUM CHLORIDE 50 ML 204 MG IV (19:57)
[2024-10-21] MEDS: SIMETHICONE 80 MG TAB.CHEW PO (19:58)
[2024-10-21] MEDS: LACTATED RINGER'S SOLUTION 1,000 ML 125 ML IV (22:04)
[2024-10-22 00:04] VITALS: BP 159/80; PULSE 85; O2SAT 97
[2024-10-22] MEDS: ONDANSETRON PF 4 MG/2 ML VIAL IV (00:30)
[2024-10-22] MEDS: OXYCODONE HCL/ACETAMINOPHEN 5MG/325MG 2 TAB PO (00:58)
[2024-10-22] MEDS: METOCLOPRAMIDE HCL 10 MG/2 ML VIAL IVP (00:58)
[2024-10-22] MEDS: CEFAZOLIN SODIUM/DEXTROSE,ISO 2 GM/50 ML PIGGYBACK IV (00:59)
[2024-10-22] MEDS: LACTATED RINGER'S SOLUTION 1,000 ML 125 ML IV (04:22)
[2024-10-22 05:45] VITALS: BP 136/77; PULSE 91; TEMP 36.9; O2SAT 90
[2024-10-22 07:19] LABS: Hemoglobin 12.4 g/dL (12.0-16.0); Immature Granulocytes Abs Auto 0.03 10^3/uL (0.00-0.03); Immature Granulocytes Pct Auto 0.3 % (0.0-0.5); Lymphocytes Absolute Auto 0.9 10^3/uL (1.2-3.8); Lymphocytes Percent Auto 9.7 % (20.5-60.0); Mean Corpuscular HGB Conc 32.6 g/dL (29.9-35.2); Mean Corpuscular Hemoglobin 28.2 pg (26.7-34.0); Mean Corpuscular Volume 86.4 fL (81.0-99.0); Mean Platelet Volume 9.5 fL (9.5-13.5); Monocytes Absolute Auto 0.3 10^3/uL (0.3-0.8); Monocytes Percent Auto 3.3 % (1.7-12.0); Neutrophils Absolute Auto 8.2 10^3/uL (1.4-6.5); Neutrophils Percent Auto 86.7 % (43.0-75.0); Platelet Count 237 10^3/uL (150-450); Red Cell Distribution Width 13.2 % (11.0-15.0); White Blood Count 9.5 10^3/uL (4.0-11.0)
[2024-10-22 07:34] VITALS: BP 140/80; PULSE 96; TEMP 36.6; O2SAT 94
[2024-10-22] MEDS: IBUPROFEN 400 MG TABLET 800 MG PO (07:56)
[2024-10-22] MEDS: DOCUSATE SODIUM 100 MG CAPSULE PO (07:56)
[2024-10-22] MEDS: ENOXAPARIN SODIUM 40 MG/0.4 ML SYRINGE SUBQ (07:58)
[2024-10-22] MEDS: MAGNESIUM HYDROXIDE 2,400 MG/10 ML ORAL.SUSP 2400 MG PO (08:54)
--- OUTSIDE RECORDS SUMMARY | 2024-10-22 10:55 | XMS_ITS | CCD ---
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 Name Role Phone Unavailable Primary Care Provider [...] Attending Unavailable Liam Brown Admitting Unavailable Carcamo NEWS CAMERAMAN, Bisi Perera Unavailable BISI CARCAMO Attending Unavailab le CARCAMOBISI Attending Unavailab le CARCAMOBISI Attending Unavailab ADALID Pillai Attending Unavailable BISI CARCAMO Referring Unavailab ADALID Pillai Attending Unavailable LIAM BROWN Attending Unavailable TERRY BORREROE Rock Referring Unavailable CARCAMOBISI RUBIO Attending Unavailab LIAM Awad Attending Unavailable CATHLEEN OLEA Attending Unavailable LIAM BROWN Attending Unavailable LIAM BROWN Attending Unavailable Nuzhat Mike MD Primary Care Provider LINDA LEARY Attending Unavailable NUZHAT MIKE Referring Unavailable NUZHAT MIKE Primary Care Unavailable LINDA LEARY Attending Unavailable LINDA LEARY Referring Unavailable NUZHAT MIKE Primary Care Unavailable LINDA LEARY Attending Unavailable LINDA LEARY Referring Unavailable NUZHAT MIKE Primary Care Unavailable LINDA LEARY Attending Unavailable LINDA LEARY M Referring Unavailable NUZHAT MIKE Primary Care Unavailable ELENILINDA WESTFALL Attending Unavailable LINDA LEARY Referring Unavailable NUZHAT MIKE Primary Care [...] Cortisone; Translations: [CORTISONE] Drug Allergy 10-28-2023 Anxiety [facility] Work Phone: Medications Current Medications Medication Drug Class(es) Dates Sig (Normalized) Sig (Original) apixaban 5 mg oral tablet (20 sources) Factor Xa Inhibitor Start: 03-02-2024 End: 09-23-2024 take 1 tablet by mouth in the morning, then take 1 tablet by mouth at bedtime apixaban (ELIQUIS) 5 mg tablet Indications: Paroxysmal atrial fibrillation ([facility]) Take 1 tablet (5 mg [...] 90 tablet 1 09/14/2024 Active cranberry preparation 500 mg oral capsule (20 sources) Non-Standardized Food [...] 3 10/18/2024 Active Start: 06-25-2022 End: 10-15-2024 take 1 tablet by mouth once daily rosuvastatin (Crestor) 5 MG tablet Indications: Mixed dyslipidemia (CMS/HCC) TAKE 1 TABLET BY MOUTH EVERY DAY 30 tablet 5 08/18/2024 Active Problems Active Problems Problem Classification Problem Date Documented Date Episodic/Chronic Abdominal pain (1 source) Pain in female pelvis; Translations: [Pelvic and perineal pain] 09-16-2024 Episodic Anxiety disorders (20 sources) Anxiety; Translations: [Anxiety disorder, unspecified] Onset: 07-19-2020 01-20-2024 Chronic Cardiac dysrhythmias (5 sources) Paroxysmal atrial fibrillation; Translations: [Paroxysmal atrial fibrillation] Onset: 03-02-2024 09-23-2024 Chronic Diabetes mellitus without complication (20 sources) Type 2 diabetes mellitus without complication; Translations: [Type 2 diabetes mellitus without complications] Onset: 05-25-2016 Resolved: 11-06-2022 01-20-2024 Chronic Disorders of lipid metabolism (20 sources) Dyslipidemia; [...] kidney] Onset: 11-10-2017 Resolved: 01-20-2024 01-20-2024 Episodic Cardiac dysrhythmias (20 sources) Palpitations; Translations: [Palpitations] Onset: 10-28-2022 01-20-2024 Episodic Genitourinary symptoms and ill-defined conditions (20 sources) [...] WITH AUTO DIFFon BASOPHILS ABSOLUTE AUTO 0 [facility] Basophils/100 WBC (Bld) 0.4 % 0.2 - 2.0 % [facility] Eosinophils/100 WBC (Bld) 0.2 % Low 0.9 - 7.0 % [facility] Erythrocyte distribution width (RBC) [Ratio] 13.1 % 11.0 - 15.0 % [facility] Hematocrit (Bld) [Volume fraction] 44.9 % 36.0 - 48.0 % [facility] Hemoglobin (Bld) [Mass/Vol] 14.5 g/dL 12.0 - 16.0 g/dL [facility] IMMATURE GRANULOCYTES ABS AUTO 0.01 [facility] Immature granulocytes/100 WBC (Bld) 0.2 % 0.0 - 0.5 % [facility] Interpretation and review of laboratory results Abnormal [facility] LYMPHOCYTES ABSOLUTE AUTO 1.4 [facility] Lymphocytes/100 WBC (Bld) 30.5 % 20.5 - 60.0 % [facility] MCH (RBC) [Entitic mass] 28.1 pg 26.7 - 34.0 pg [facility] MCHC (RBC) [Mass/Vol] 32.3 g/dL 29.9 - 35.2 g/dL [facility] MCV (RBC) [Entitic vol] 87 fL 81.0 - 99.0 fL [facility] MONOCYTES ABSOLUTE AUTO 0.4 [facility] Monocytes/100 WBC (Bld) 8.2 % 1.7 - 12.0 % [facility] NEUTROPHILS ABSOLUTE AUTO 2.7 [facility] Neutrophils/100 WBC (Bld) 60.5 % 43.0 - 75.0 % [facility] Platelet mean volume (Bld) [Entitic vol] 9 fL Low 9.5 - 13.5 fL [facility] TBH EO # 0 [facility] PLT 240 [facility] RBC 5.16 [facility] WBC 4.5 [facility] ALL CBC WITH AUTO DIFFon BASOPHILS ABSOLUTE AUTO 0 [facility] Basophils/100 WBC (Bld) 0.2 % 0.2 - 2.0 % [facility] Eosinophils/100 WBC (Bld) 0.5 % Low 0.9 - 7.0 % [facility] Erythrocyte distribution width (RBC) [Ratio] 12.9 % 11.0 - 15.0 % [facility] Hematocrit (Bld) [Volume fraction] 42.1 % 36.0 - 48.0 % [facility] Hemoglobin (Bld) [Mass/Vol] 13.7 g/dL 12.0 - 16.0 g/dL [facility] IMMATURE GRANULOCYTES ABS AUTO 0.02 [facility] Immature granulocytes/100 WBC (Bld) 0.2 % 0.0 - 0.5 % [facility] Interpretation and review of laboratory results Abnormal [facility] LYMPHOCYTES ABSOLUTE AUTO 1.2 [facility] Lymphocytes/100 WBC (Bld) 14.8 % Low 20.5 - 60.0 % [facility] MCH (RBC) [Entitic mass] 28.3 pg 26.7 - 34.0 pg [facility] MCHC (RBC) [Mass/Vol] 32.5 g/dL 29.9 - 35.2 g/dL [facility] MCV (RBC) [Entitic vol] 87 fL 81.0 - 99.0 fL [facility] MONOCYTES ABSOLUTE AUTO 0.5 [facility] Monocytes/100 WBC (Bld) 5.8 % 1.7 - 12.0 % [facility] NEUTROPHILS ABSOLUTE AUTO 6.4 [facility] Neutrophils/100 WBC (Bld) 78.5 % High 43.0 - 75.0 % [facility] Platelet mean volume (Bld) [Entitic vol] 8.9 fL Low 9.5 - 13.5 fL [facility] EO # 0 [facility] PLT 267 [facility] RBC 4.84 [facility] WBC 8.2 [facility] Lipid 1996 panelon 5 Cholesterol [Mass/Vol] 144 mg/dL Low 150-200 [facility] Comment on above: Performed By: #### 2 4331-1 #### [facility] ([id number]) [address] [place] [address], [address] [place] [address] Cholesterol in HDL [Mass/Vol] 55 mg/dL Normal >39 [facility] Comment on above: Result Comment: HDL <40 mg/dL - High Risk HDL > or = 40mg/dL- Desirable HDL >60 mg/dL - Negative Risk Performed By: #### 2 4331-1 #### [facility] ([id number]) [address] [place] [address], [address] [place] [address] Cholesterol in LDL [Mass/Vol] 79 mg/dL Normal <130 [facility] Comment on above: Result Comment: LDL <100 mg/dL - Desirable LDL >160 mg/dL - High Risk Performed By: #### 2 4331-1 #### [facility] ([id number]) [address], [address] [place] [address] Cholesterol in VLDL [Mass/Vol] 10 mg/dL Normal 0-30 [facility] Comment on above: Performed By: #### 2 4331-1 #### [facility] ([id number]) [address], [address] [place] [address] CHOLESTEROL:HDL 2.6 Normal 1.0-5.0 [facility] Comment on above: Performed By: #### 2 4331-1 #### [facility] ([id number]) [address], [address] [place] [address] Triglyceride [Mass/Vol] 49 mg/dL Normal 27-150 [facility] Comment on above: Performed By: #### 2 4331-1 #### [facility] ([id number]) [address], [address] [place] [address] POCT EKGon 09-23-2024 [facility] Urinalysis macro (dipstick) panel (U)on 08-03-2024 Bilirubin, UA Negative Negative - 4(70) +++ mg/dL [facility] Blood, UA Negative Negative - 50 John/mcL [facility] Clarity, UA Clear [facility] re Color, UA Yellow [facility] Glucose, UA Negative Negative - 1999(110) ++++ mg/dL [facility] Interpretation and review of laboratory results Normal [facility] Ketones, UA Negative Negative - 160(16) ++++ mg/dL [facility] Leukocytes, UA Negative Negative - 500+++ Donte/mcL [facility] Nitrite, UA Negative Negative - Positive [facility] pH, UA 6 5 - 9 [facility] Protein, UA Negative Negative - 1999(20) ++++ mg/dL [facility] Spec Grav, UA 1.01 1 - 1.03 [facility] Urobilinogen, UA 0.2 0.2 - 12 mg/dL [facility] MAMM SCREENING BILATERAL W C salesforce business analyst 07-19-2024 MAMM SCREENING BILATERAL W CAD MAMM SCREENING BILATERAL W CAD HAFSA FLORES 1960 [id number] EXAM: MAMM SCREENING BILATERAL W CAD, 07/16/2024 [...] AM 1 c MAMM 1 YR Normal [facility] ALL CBC WITH AUTO DIFFon BASOPHILS ABSOLUTE AUTO 0.0 [facility] Basophils/100 WBC (Bld) 0.4 % 0.2 - 2.0 % [facility] Eosinophils/100 WBC (Bld) 0.6 % Low 0.9 - 7.0 % [facility] Erythrocyte distribution width (RBC) [Ratio] 13.0 % 11.0 - 15.0 % [facility] Hematocrit (Bld) [Volume fraction] 42.3 % 36.0 - 48.0 % [facility] Hemoglobin (Bld) [Mass/Vol] 13.8 g/dL 12.0 - 16.0 g/dL [facility] IMMATURE GRANULOCYTES ABS AUTO 0.00 [facility] Immature granulocytes/100 WBC (Bld) 0.0 % 0.0 - 0.5 % [facility] Interpretation and review of laboratory results Abnormal [facility] LYMPHOCYTES ABSOLUTE AUTO 1.6 [facility] Lymphocytes/100 WBC (Bld) 31.0 % 20.5 - 60.0 % [facility] MCH (RBC) [Entitic mass] 28.2 pg 26.7 - 34.0 pg [facility] MCHC (RBC) [Mass/Vol] 32.6 g/dL 29.9 - 35.2 g/dL [facility] MCV (RBC) [Entitic vol] 86.5 fL 81.0 - 99.0 fL [facility] MONOCYTES ABSOLUTE [facility]O [facility].4 [facility] Monocytes/100 WBC (Bld) 7.9 % 1.7 - 12.0 % [facility] NEUTROPHILS ABSOLUTE AUTO 3.1 [facility] Neutrophils/100 WBC (Bld) 60.1 % 43.0 - 75.0 % [facility] Platelet mean volume (Bld) [Entitic vol] 9.3 fL Low 9.5 - 13.5 fL [facility] TB[facility] EO # 0.0 [facility] TB[facility] PLT 244 [facility] TB RBC 4.89 [facility] WBC 5.1 [facility] Babar 06-04-2024 L Specimen: [id number] Received: 06/07/24 Status: COLLEEN Carpio Num: [id number] Spec Type: Surgical Subm Dr: Liam Brown Tissues: A Endometrium - Curettings (ENDOMETRIAL CURRETTINGS) Procedures: HE/2, Gross/Micro L4 Age/ Patient Sex Location Account Attending Physician Hafsa Flores 64/F [facility] [id number] Liam Brown SPEC NUM: [id number] RECD: 06/07/24 STATUS: COLLEEN CARPIO NUM: [id number] ARELI: 06/04/[address]: Liam Brown ENTERED: 06/07/[address] [facility] [address]: Pepper,Lab SPEC TYPE: Surgical DEPT: [facility]IN[facility] HUGHES ENTERED BY: [id number] RECV BY: [id number] ORDERED: HE/2, Gross/Micro L4 ORDERED: HE/2, Gross/Micro [...] performed supporting the above interpretation -------- Specimen: [id number] Received: 06/07/24 Status: COLLEEN Carpio Num: [id number] Spec Type: Surgical Subm Dr: Liam Brown Tissues: A Endometrium - Curettings (ENDOMETRIAL CURRETTINGS) Procedures: HE/2, Gross/Micro L4 -------- Patient: Candy Floresyn Katelyn [id number] (Continued) -------- Specimen: [id number] Received: 06/07/24 (Continued) Signed (signature on file) Armin Alexander MD 06/10/241047 -------- Specimen: [id number] Received: 06/07/24 Status: COLLEEN Carpio Num: [id number] Spec Type: Surgical Subm Dr: Liam Brown Tissues: A Endometrium - Curettings (ENDOMETRIAL CURRETTINGS) Procedures: HE/2, Gross/Micro L4 -------- Patient: Hafsa Flores [id number] (Continued) -------- Specimen: [id number] Received: 06/07/24 (Continued) CPT Codes 22533 -------- -------- Specimen: [id number] Received: 06/07/24 Status: COLLEEN Carpio Num: [id number] Spec Type: Surgical Subm Dr: Liam Brown Tissues: A Endometrium - Curettings (ENDOMETRIAL CURRETTINGS) Procedures: HE/2, Gross/Micro L4 -------- Patient: Hafsa Flores [id number] (Continued) -------- Signed (signature on file) Armin Alexander MD 06/10/241047 Normal [facility] ALL CBC WITH AUTO DIFFon BASOPHILS ABSOLUTE AUTO 0.0 [facility] Basophils/100 WBC (Bld) 0.4 % 0.2 - 2.0 % [facility] Eosinophils/100 WBC (Bld) 1.0 % 0.9 - 7.0 % [facility] Erythrocyte distribution width (RBC) [Ratio] 13.1 % 11.0 - 15.0 % [facility] Hematocrit (Bld) [Volume fraction] 42.6 % 36.0 - 48.0 % [facility] Hemoglobin (Bld) [Mass/Vol] 14.0 g/dL 12.0 - 16.0 g/dL [facility] IMMATURE GRANULOCYTES ABS AUTO 0.01 [facility] Immature granulocytes/100 WBC (Bld) 0.2 % 0.0 - 0.5 % [facility] Interpretation and review of laboratory results Abnormal [facility] LYMPHOCYTES ABSOLUTE AUTO 1.1 Low [facility] Lymphocytes/100 WBC (Bld) 21.1 % 20.5 - 60.0 % [facility] MCH (RBC) [Entitic mass] 28.4 pg 26.7 - 34.0 pg [facility] MCHC (RBC) [Mass/Vol] 32.9 g/dL 29.9 - 35.2 g/dL [facility] MCV (RBC) [Entitic vol] 86.4 fL 81.0 - 99.0 fL [facility] MONOCYTES ABSOLUTE AUTO 0.3 [facility] Monocytes/100 WBC (Bld) 6.7 % 1.7 - 12.0 % [facility] NEUTROPHILS ABSOLUTE AUTO 3.6 [facility] Neutrophils/100 WBC (Bld) 70.6 % 43.0 - 75.0 % [facility] Platelet mean volume (Bld) [Entitic vol] 9.5 fL 9.5 - 13.5 fL [facility] are TBH EO # 0.1 [facility] TBH PLT 231 [facility] TB RBC 4.93 [facility] TBH WBC 5.1 [facility] US [...] 11-06-2021 CULTURE, URINE, ROUTINE SEE NOTE Normal [facility] Kickboxing Instructor Comment on above: Order Comment: [facility] Testing performed at: QPT, [facility], [address] [place] [address], [address] [place] [address], [place], [address], Sales And Service Representative: Dinh Ackerman MD [facility] Collection Date/Time: [id number] [facility] Results Received Date/Time: [id number] [facility] Reported Date/Time: [id number] FASTING: NO Result Comment: CULT URE, URINE, ROUTINE Micro Number: [id number] Test Status: Final Specimen Source: Urine Specimen Quality: Adequate Result: No Growth Performed By: #### 6 [id number] #### [facility] [address] [place] [address] [id number] 11-23-2020 SARS-CoV-2 Normal [facility] Comment on above: Performed By: #### C OVID #### [address] [address] Pattern Clerk: Timothy Bain MD SARS-CoV-2 DETECTED Abnormal NOTDET [facility] Comment on above: Result Comment: The specimen is POSITIVE for SARS-Cov-2, the novel coronavirus associated with COVID-19. Angi SARS-CoV-2 for use on the [employer] is a real-time RT-PCR test intended [...] this assay. Fact sheet for Healthcare Providers: https://www.fda.gov/media/984797/download Fact sheet for Patients: https://www.fda.gov/media/945748/download METHODOLOGY: RT-PCR Results reported to the appropriate Health Department Performed By: #### C OVID #### [address] [id number] Pattern Clerk: Timothy Bain MD [id number] 11-22-2020 SARS-CoV-2 Source .NASOPHARYNGEAL SWAB Normal [facility] Comment on above: Performed By: #### C OVID #### [address] [id number] Pattern Clerk: Timothy Bain MD [id number] 11-03-2020 SARS-CoV-2 Not Detected Normal [facility] Comment on above: Result Comment: The specimen is NEGATIVE for SARS-CoV-2, the novel coronavirus associated with COVID-19. A negative result does not rule out COVID-19. [employer] SARS-CoV-2 for use on the [employer] is a real-time RT-PCR test intended [...] this assay. Fact sheet for Healthcare Providers: https://www.fda.gov/media/475100/download Fact sheet for Patients: https://www.fda.gov/media/824057/download METHODOLOGY: RT-PCR Performed By: #### C OVID #### [address] [id number] Pattern Clerk: Timothy Bain MD SARS-CoV-2 [facility] Comment on above: Performed By: #### C OVID #### [facility] [employer] [address] [place] [address] [id number] Pattern Clerk: Timothy Bain MD SARS-CoV-2,[facility] Comment on above: Performed By: #### C OVID #### [facility] [employer] [address] [place] [address] [id number] Pattern Clerk: Timothy Bain MD SARS-CoV-2 Source .NASOPHARYNGEAL SWAB Normal [facility] Comment on above: Performed By: #### C OVID #### [facility] [address] [place] [address] [id number] Pattern Clerk: Timothy Bain MD [id number] 10-22-2020 SARS-CoV-2 Not Detected Normal NOTDET [facility] Comment on above: Result Comment: The specimen is NEGATIVE for SARS-CoV-2, the novel coronavirus associated with COVID-19. A negative result does not rule out COVID-19. Angi SARS-CoV-2 for use on the [employer] is a real-time RT-PCR test intended [...] this assay. Fact sheet for Healthcare Providers: https://www.fda.gov/media/004808/download Fact sheet for Patients: https://www.fda.gov/media/048989/download METHODOLOGY: RT-PCR Performed By: #### C OVID #### [employer] [address] [place] [address] [id number] Pattern Clerk: Timothy Bain MD SARS-CoV-2 [facility] Comment on above: Performed By: #### C OVID #### [facility] [address] [place] [address] [id number] Pattern Clerk: Timothy Bain MD SARS-CoV-2,[facility] Comment on above: Performed By: #### C OVID #### [facility] [address] [place] [address] Pattern Clerk: Timothy Bain MD [id number] 10-20-2020 SARS-CoV-2 Source .NASOPHARYNGEAL SWAB Normal [facility] Comment on above: Performed By: #### C OVID #### [address] [place], [place] [id number] Pattern Clerk: Timothy Bain MD [id number] 10-07-2020 SARS-CoV-2 Not Detected Normal Not Detected [facility] Comment on above: Result Comment: (NOT E) This nucleic acid amplification test was developed and its performance characteristics determined by [employer]. Nucleic acid amplification tests include PCR and [...] detected) result in this assay. Performed At: [facility] [address] [place], [place] [id number] Ce Rogel PhD Ph:[phone] Performed By: #### A COV #### [facility] [address] [place] [address] Pattern Clerk: Edmund Gerard MD [id number] 09-30-2020 SARS-CoV-2 Not Detected Normal Not Detected [facility] Comment on above: Result Comment: (NOT E) This nucleic acid amplification test was developed and its performance characteristics determined by [employer]. Nucleic acid amplification tests include PCR and [...] detected) result in this assay. Performed At: [facility] [address] [employer] [facility] [place] [id number] Lonnie Perera MD Ph:[phone] Performed By: #### A COV #### [facility] [address] [place] [address] Pattern Clerk: Edmund Gerard MD [id number] 09-15-2020 SARS-CoV-2 Not Detected Normal Not Detected [facility] Comment on above: Result Comment: (NOT E) This nucleic acid amplification test was developed and its performance characteristics determined by [employer]. Nucleic acid amplification tests include PCR and [...] detected) result in this assay. Performed At: [facility] [address] [employer] [facility] [place] [id number] Lonnie Perera MD Ph:[phone] Performed By: #### A COV #### [facility] [address] [place] [address] Pattern Clerk: Edmund Gerard MD [id number] 09-10-2020 SARS-CoV-2 Not Detected Normal Not Detected [facility] Comment on above: Result Comment: (NOT E) This nucleic acid amplification test was developed and its performance characteristics determined by [employer]. Nucleic acid amplification tests include PCR and [...] result in this assay. Performed At: [facility] [address] [place], [place] [id number] Yeseniasheree Sarahtiannasheree [facility] Ph:[phone] Performed By: #### A COV #### [facility] [address] [place] [address] Pattern Clerk: Edmund Gerard MD [id number] 07-10-2020 SARS-CoV-2 Not Detected Normal Not Detected [facility] Comment on above: Result Comment: (NOT E) This nucleic acid amplification test was developed and its performance characteristics determined by [employer]. Nucleic acid amplification tests include PCR and [...] detected) result in this assay. Performed At: [facility] [address] [facility] [place] [id number] Lonnie Perera MD Ph:[phone] Performed By: #### A COV #### [facility] [address] [place], [place] [id number] Pattern Clerk: Edmund Gerard MD Vital Signs Date Time Vital Sign Value Performing Clinician Denisei lopez 09-23-2024 11:06-0500 Body height 162.6 cm Linda Diaz MD Work Phone: [facility] 09-23-2024 11:06-0500 Body mass index (BMI) [Ratio] 32.44 kg/m2 Linda Diaz MD Work Phone: [facility] 09-23-2024 11:06-0500 Body weight 85.73 kg Linda Diaz MD Work Phone: [facility] 09-23-2024 11:06-0500 Diastolic blood pressure 90 mm[Hg] Linda Diaz MD Work Phone: [facility] 09-23-2024 11:06-0500 Heart rate 71 /min Linda Diaz MD Work Phone: [facility] 09-23-2024 11:06-0500 SaO2% (BldA) [Mass fraction] 98 % Linda Diaz MD Work Phone: [facility] 09-23-2024 11:06-0500 Systolic blood pressure 142 mm[Hg] Linda Diaz MD Work Phone: [facility] 09-16-2024 09:14-0500 Body mass index (BMI) [Ratio] 32.12 kg/m2 Liam Stephanie DO Work Phone: [facility] 09-16-2024 09:14-0500 Body weight 84.88 kg Liam Stephanie DO Work Phone: [facility] 09-16-2024 09:14-0500 Diastolic blood pressure 84 mm[Hg] Liam Stephanie DO Work Phone: [facility] 09-16-2024 09:14-0500 Systolic blood pressure 124 mm[Hg] Liam Stephanie DO Work Phone: [facility] 08-03-2024 14:53-0500 Body mass index (BMI) [Ratio] 31.82 kg/m2 Liam Stephanie DO Work Phone: [facility] 08-03-2024 14:53-0500 Body weight 84.1 kg Liam Stephanie DO Work Phone: [facility] 08-03-2024 14:53-0500 Diastolic blood pressure 70 mm[Hg] Liam Stephanie DO Work Phone: [facility] 08-03-2024 14:53-0500 Systolic blood pressure 120 mm[Hg] Liam Stephanie DO Work Phone: [facility] 06-16-2024 14:11-0400 Body mass index (BMI) [Ratio] 31.43 kg/m2 Cathleen Belvidere PA Work Phone: [facility] 06-16-2024 14:110400 Body weight 83.06 kg Cathleen CASON Work Phone: [facility] 06-16-2024 14:11-0400 Diastolic blood pressure 70 mm[Hg] Cathleen CASON Work Phone: [facility] 06-16-2024 14:11-0400 Systolic blood pressure 120 mm[Hg] Cathleen CASON Work Phone: [facility] Healthcare Encounters Encounter Date Encounter Type Care Provider Facility Start: 10-21-2024 End: 10-21-2024 Clinisync Result Encounter Generic External Data Provider [facility] External [facility] Unsolicited Start: 10-21-2024 End: 10-21-2024 Clinisync Result Encounter Generic External Data Provider [facility] External Department Unsolicited Start: 10-17-2024 End: 10-18-2024 Refill Bisi Carcamo NP Work Phone: [facility] Comment on above: 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 Start: 10-15-2024 End: 10-15-2024 Clinisync Result Encounter Generic External Data Provider [facility] External Department Unsolicited Start: 10-15-2024 End: 10-15-2024 Clinisync Result Encounter Generic External Data Provider [facility] External Department Unsolicited Start: 10-15-2024 End: 10-18-2024 Telephone encounter Colin Zimmerman RN [facility] Comment on above: Crestor Start: 10-09-2024 End: 10-09-2024 ambulatory NUZHAT Francois CEE [facility] Start: 09-23-2024 End: 09-23-2024 Office outpatient visit 15 minutes Linda Diaz MD Work Phone: [facility] Comment on above: Preop cardiovascular exam (Primary Dx); Paroxysmal atrial fibrillation (CMS-HCC); Mild mitral regurgitation; Mild tricuspid regurgitation; Primary hypertension; Hyperlipidemia, unspecified hyperlipidemia type; Encounter for pre-operative cardiovascular clearance Start: 09-23-2024 End: 09-23-2024 Patient encounter status Linda Diaz MD Work Phone: [facility] Start: 09-23-2024 End: 09-23-2024 Preoperative state Linda Diaz MD Work Phone: [facility] Start: 09-23-2024 Encounter for preprocedural cardiovascular examination [facility] Start: 09-23-2024 End: 09-24-2024 Refill Lashell Shaffer RN [facility] Comment on above: Med Refill Start: 09-21-2024 End: 09-21-2024 Telephone encounter Maegan Carter CMA [facility] Start: 09-16-2024 End: 09-16-2024 Bamboo flowsheet Liam Stephanie DO Work Phone: [facility] OB Start: 09-16-2024 End: 09-16-2024 Bamboo flowsheet Liam Stephanie DO Work Phone: [facility] Start: 09-16-2024 End: 09-16-2024 Office outpatient visit 15 minutes Liam Stephanie DO Work Phone: [facility] Comment on above: Preop examination; Post-menopausal bleeding; Pelvic pain in female; Dyspareunia in female; Dysmenorrhea Start: 09-16-2024 End: 09-16-2024 Preprocedural examination done Liam Stephanie DO Work Phone: [facility] Healthcare Work Phone: Start: 09-16-2024 End: 09-16-2024 ambulatory LIAM STEPHANIE Not Available Start: 09-14-2024 End: 09-14-2024 Refill Nuzhat Mike MD Work Phone: [facility] Comment on above: Vitamin D deficiency Start: 09-08-2024 End: 09-09-2024 Refill Nuzhat Mike MD Work Phone: [facility] Comment on above: Gastroesophageal ref lux disease without esophagitis Start: 09-07-2024 End: 09-09-2024 Refill Urvashi Carr [employer] Work Phone: [facility] Comment on above: Gastroesophageal ref lux disease without esophagitis Start: 08-18-2024 End: 08-18-2024 Refill Bisi Carcamo [employer] Work Phone: [facility] Comment on [...] Start: 07-30-2024 End: 07-30-2024 Refill Bisi Carcamo [employer] Work Phone: [facility] Comment on above: 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 Start: 07-16-2024 End: 07-16-2024 ambulatory LIAM R STEPHANIE [facility] Start: 07-13-2024 End: 07-13-2024 Phys/qhp telephone [...] Start: 06-05-2024 End: 06-07-2024 Refill Bisi Carcamo [employer] Work Phone: [facility] Comment on above: 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 Start: 06-04-2024 End: 06-04-2024 Clinisync Result Encounter Generic External Data Provider [facility] External Department Unsolicited Start: 06-04-2024 End: 06-04-2024 Clinisync Result Encounter Generic External Data Provider [facility] External Department Unsolicited Start: 06-04-2024 End: 06-04-2024 ambulatory PHYSICIAN NO [facility] Work Phone: Start: 06-04-2024 End: 06-04-2024 Departed Referred PHYSICIAN [facility] Start: 06-02-2024 End: 06-02-2024 ambulatory PHILIPP LENNON [facility] Start: 05-24-2024 End: 05-24-2024 Clinisync Result Encounter Generic External Data Provider [facility] External Department Unsolicited Start: 05-24-2024 End: 05-24-2024 Clinisync Result Encounter Generic External Data Provider [facility] External Department Unsolicited Start: 05-05-2024 End: 05-05-2024 ambulatory LIAM STEPHANIE Not Available Start: 04-29-2024 End: 04-29-2024 ambulatory BISI CARCAMO Not Available Start: 04-07-2024 End: 04-07-2024 ambulatory LIAM STEPHANIE Not Available Start: 03-17-2024 End: 03-17-2024 ambulatory [facility] Start: 03-17-2024 End: 03-17-2024 ambulatory [facility] Start: 03-15-2024 End: 03-15-2024 ambulatory ADALID L FLORO Not Available Start: 03-04-2024 End: 03-04-2024 ambulatory BISI CARCAMO Not Available Start: 03-02-2024 End: 03-02-2024 ambulatory LINDA Mireles [facility] Start: 02-16-2024 End: 02-16-2024 ambulatory BISI A CARCAMO Not Available Start: 02-16-2024 End: 02-16-2024 ambulatory ADALID L FLORO Not Available Start: 01-29-2024 End: 01-29-2024 ambulatory BISI A CARCAMO Not Available Start: 01-22-2024 End: 01-22-2024 ambulatory BISI CARCAMO Not Available Start: 01-20-2024 End: 01-20-2024 ambulatory BISI A CARCAMO Not Available Start: 10-29-2023 Telephone encounter Halima FUNK [facility] Start: 10-28-2023 End: 10-28-2023 ambulatory BISI A CARCAMO Not Available Start: 11-22-2020 End: 11-23-2020 Patient encounter procedure SOHAIL MORGAN [facility] Start: 11-22-2020 End: 11-22-2020 Subsequent hospital visit by physician [facility] Start: 11-02-2020 End: 11-03-2020 Patient encounter procedure SOHAIL MORGAN [facility] Start: 11-02-2020 End: 11-02-2020 Subsequent hospital visit by physician [facility] Start: 10-19-2020 End: 10-20-2020 Patient encounter procedure SOHAIL CATHY [facility] Start: 10-19-2020 End: 10-19-2020 Subsequent hospital visit by physician VALDEMAR BOATENG DOCTOR Start: 10-05-2020 End: 10-06-2020 Patient encounter procedure SOHAIL CATHY [facility] Start: 10-05-2020 End: 10-05-2020 Subsequent hospital visit by physician [facility] Start: 09-27-2020 End: 09-28-2020 [facility] Start: 09-27-2020 End: 09-27-2020 Subsequent hospital visit by physician [facility] Start: 09-14-2020 End: 09-15-2020 Patient encounter procedure TOM MORGAN [facility] Start: 09-14-2020 End: 09-14-2020 Subsequent hospital visit by physician [facility] Start: 09-07-2020 End: 09-08-2020 Patient encounter procedure TOM MORGAN [facility] Start: 09-07-2020 End: 09-07-2020 Subsequent hospital visit by physician [facility] Start: 08-31-2020 End: 09-01-2020 Patient encounter procedure TOM MORGAN [facility] Start: 08-31-2020 End: 08-31-2020 Subsequent hospital visit by physician [facility] Start: 08-16-2020 End: 08-17-2020 Patient encounter procedure TOM MORGAN [facility] Start: 08-16-2020 End: 08-16-2020 Subsequent hospital visit by physician [facility] Start: 07-10-2020 Patient encounter procedure NUZHAT MIKE Facility:[facility] Start: 07-07-2020 End: 07-08-2020 Patient encounter procedure TOM MORGAN [facility] Start: 07-07-2020 End: 07-07-2020 Subsequent hospital visit by physician [facility] Procedures Date Procedure Procedure Detail Performing Clinician Start: 10-21-2024 ALL CBC WITH AUTO DIFF Liam Stephanie DO Work Phone: Start: 10-15-2024 ALL CBC WITH AUTO DIFF Liam Stephanie DO Work Phone: Start: 09-23-2024 Ecg routine ecg w/le ast 12 lds w/i&r Linda Diaz MD Work Phone: Start: 08-03-2024 Urnls dip stick/tabl et rgnt non-auto w/o micrscp Liam Stephanie DO Work Phone: Start: 07-19-2024 Mammography Bisi Hernandes marilee [employer] Work Phone: Start: 06-04-2024 ALL CBC WITH [...] COVID- AMBULATORY TAIWO S MORGAN Start: 07-07-2020 COVID-19 AMBULATORY TAIWO S MORGAN Start: 01-31-2014 Colonoscopy Halima Viveros MA Plan of Treatment Date Care Activity Detail Author Start: 02-15-2029 Screening for malign ant neoplasm of cervix [facility] Start: 07-03-2027 Screening for malign ant neoplasm of cervix [facility] Start: 02-15-2027 Screening for malign ant neoplasm of cervix Pap Smear [facility] Start: 03-05-2026 Glaucoma screening Diabetes: R etinopathy Screening [facility] Start: 09-23-2025 Adult BMI Screening Adult BMI Screen ing [facility] Start: 09-23-2025 Tobacco Screening Tobacco Screening [facility] Start: 07-19-2025 Screening for malign ant neoplasm of breast Mammogram [facility] Start: 06-02-2025 Adult BMI Screening Adult BMI Screen ing [facility] Start: 06-02-2025 Tobacco Screening Tobacco Screening [facility] Start: 03-07-2025 End: 03-07-2025 Patient encounter procedure 03/07/2025 10:00 AM EDT Office Visit [facility] [address] [place] [address] Charles Frye MD [address] [place] [address] [facility] Start: 01-19-2025 Urine screening for protein Diabetes: Urine Protein Screening [facility] Start: 09-23-2024 End: 09-23-2024 Patient encounter procedure 09/23/2024 11:15 AM EST [facility] [address] [place] [address] Linda Diaz MD [address] [place] [address] [facility] Start: 09-16-2024 End: 09-16-2024 Patient encounter procedure [facility] Comment on above: Arrived Start: 08-03-2024 End: 08-03-2024 Patient encounter procedure [facility] Comment on above: Arrived Start: 06-16-2024 End: 06-16-2024 Patient encounter procedure 06/16/2024 2:10 PM EDT Office Visit [facility] [address] [place] [id number] Cathleen Olea PA [address] [place] [address] Arrived [facility] Comment on above: Arrived Start: 06-04-2024 End: 06-04-2024 Patient encounter procedure 06/04/2024 7:30 AM EDT Procedure Visit [facility] Liam Brown DO [address] [place], [place] [id number] [facility] Start: 05-30-2024 COVID-19 Vaccine ( season) COVID-19 Vaccine () [facility] Start: 05-30-2024 Influenza vaccination [facility] Start: 04-21-2024 Screening for malign ant neoplasm of breast Mammogram [facility] Start: 04-20-2024 Hemoglobin A1c measurement Diabetes: Hemoglobin A1C [facility] Start: 02-01-2024 Screening for malign ant neoplasm of colon [facility] Start: 01-23-2024 Urine screening for protein Diabetes: Urine Protein Screening [facility] Start: 01-20-2024 End: 01-20-2024 Patient encounter procedure 01/20/2024 2:00 PM EDT Office Visit [facility] [address] [place] [address] Bisi Carcamo NP [address] [place], [place] [id number] [facility] Start: 12-06-2023 Glaucoma screening Diabetes: R etinopathy Screening [facility] Start: 04-23-2023 Hemoglobin A1c measurement Diabetes: Hemoglobin A1C [facility] Start: 03-05-2022 DTaP,Tdap and Td Vac cines (2 - Td or Tdap) DTaP,Tdap and Td Vaccines (2 - Td or Tdap) [facility] Start: 05-30-2020 Influenza vaccination Flu vaccine (# 1) [place], [place] Start: 2012 Administration of varicella zoster vaccine Zoster (Shingles) Vaccine (1 of 2) [facility] Start: 2012 Screening for malign ant neoplasm of breast Breast cancer screen [place], [place] Start: 2012 Screening for malign ant neoplasm of colon Colon cancer screen colonoscopy [place], [place] Start: 2012 Shingles Vaccine (1 of 2) Gomez gles Vaccine (1 of 2) [place], [place] Start: 2002 Lipid panel Lipid screen [place], [place] Start: 1983 Screening for malign ant neoplasm of cervix [facility] Start: 1981 DTaP/Tdap/Td vaccine (1 - Tdap) DTaP/Tdap/Td vaccine (1 - Tdap) [place], [place] Start: 1980 Adult BMI Follow Up Plan Adult BMI Follow Up Plan [facility] Start: 1977 HIV screening HIV screen Eusebia Morales [facility], [place] Start: 1974 Depression Screening Depression Scre vijay [facility] Start: 1962 Hepatitis C screening Hepatitis C sc reesheree [place], [place] Start: 1962 Screening for malign ant neoplasm of colon [facility] End: 10-19-2020 COVID-19 COVID-19 Lab Routine Once for 1 Occurrences starting 10/19/2020 until 10/19/2020 [place] Comment on above: Once for 1 Occurrenc es starting 10/19/2020 until 10/19/2020 COVID-19 [facility] [place] End: 11-02-2020 COVID-19 COVID-19 Lab Routine Once for 1 Occurrences starting 11/02/2020 until 11/02/2020 [place] Comment on above: Once for 1 Occurrenc es starting 11/02/2020 until 11/02/2020 End: 11-22-2020 COVID-19 COVID-19 Lab Routine Once for 1 Occurrences starting 11/22/2020 until 11/22/2020 [facility] Work Phone: Comment on above: Once for 1 Occurrenc es starting 11/22/2020 until 11/22/2020 End: 07-07-2020 Covid-19 Ambulatory Covid-19 Ambulatory Lab Routine Once for 1 Occurrences starting 07/07/2020 until 07/07/2020 [place] Comment on above: Once for 1 Occurrenc es starting 07/07/2020 until 07/07/2020 Covid-19 Ambulatory [place] End: 09-07-2020 Covid-19 Ambulatory Covid-19 Ambulatory Lab Routine Once for 1 Occurrences starting 09/07/2020 until 09/07/2020 [place] Comment on above: Once for 1 Occurrenc es starting 09/07/2020 until 09/07/2020 End: 09-14-2020 Covid-19 Ambulatory Covid-19 Ambulatory Lab Routine Once for 1 Occurrences starting 09/14/2020 until 09/14/2020 [place] Comment on above: Once for 1 Occurrenc es starting 09/14/2020 until 09/14/2020 End: 09-27-2020 Covid-19 Ambulatory Covid-19 Ambulatory Lab Routine Once for 1 Occurrences starting 09/27/2020 until 09/27/2020 [place] Comment on above: Once for 1 Occurrenc es starting 09/27/2020 until 09/27/2020 End: 10-05-2020 Covid-19 Ambulatory Covid-19 Ambulatory Lab Routine Once for 1 Occurrences starting 10/05/2020 until 10/05/2020 [place] Comment on above: Once for 1 Occurrenc es starting 10/05/2020 until 10/05/2020 End: 08-16-2020 Covid-19 Ambulatory Covid-19 Ambulatory Lab Routine Once for 1 Occurrences starting 08/16/2020 until 08/16/2020 [place] Comment on above: Once for 1 Occurrenc es starting 08/16/2020 until 08/16/2020 End: 08-31-2020 Covid-19 Ambulatory Covid-19 Ambulatory Lab Routine Once for 1 Occurrences starting 08/31/2020 until 08/31/2020 [place] Comment on above: Once for 1 Occurrenc es starting 08/31/2020 until 08/31/2020 End: 09-23-2025 Lipid 1996 panel - Serum or Plasma Lipid profile Lab Routine Primary hypertension 1 Occurrences starting 09/23/2024 until 09/23/2025 [facility] Work Phone: Comment on above: 1 Occurrences starti ng 09/23/2024 until 09/23/2025 Immunizations Immunization Date Immunization Notes Care Provider Prosper conde 07-24-2023 influenza, injectabl e, quadrivalent, [facility]ative [facility] influenza virus vacc ine, unspecified formulation Generic Provider [facility] 06-11-2022 influenza, injectabl e, quadrivalent, preservative free Generic Provider [facility] 09-07-2020 influenza, high dose seasonal, preservative-free Generic Provider [facility] 09-30-2019 Influenza, injectabl e, Madin [place] Canine Kidney, preservative free, quadrivalent Generic Provider [facility] 07-07-2019 Seasonal, quadrivale nt, recombinant, injectable influenza vaccine, preservative free Generic Provider [facility] 09-14-2018 influenza, injectabl e, quadrivalent, preservative free Generic Provider [facility] 06-29-2017 influenza, injectabl e, quadrivalent, contains preservative Generic Provider [facility] 08-03-2015 influenza, seasonal, injectable, preservative free Generic Provider [facility] 03-05-2012 tetanus toxoid, redu alyx diphtheria toxoid, and acellular pertussis vaccine, adsorbed Generic Provider [facility] Payers Date Payer Category Payer [facility] er Subscriber Plan / Payer (Effective 2020-Present) Name: Hafsa Flores Relation to Subscriber: Self Name: Hafsa Flores Payer ID: Not on file Type: Not on file Address: [address] [place] [id number] 2020 Unknown [facility] [id number] 2020-Present [phone] [address] [place] [id number]. 2.7.3.396633.315 2010 [facility] Managed Care - Other ANTH [id number]. 2.7.9.211033.505.315 2010 Unknown [id number] 1.2.840.913206.1.13.239. 2.7.3.861784.315 1962 Unknown [id number] 2.16.840.1.440813.3.579. 2.593 1962 Unknown [id number] 2.16.840.1.626987.3.579. 2.175 1962 Unknown [id number] 2.16.840.1.814632.3.579. 2.175 1962 Unknown [id number] 2.16.840.1.790202.3.579. 2.175 1962 Unknown [id number] 2.16.840.1.859761.3.579. 2.175 1962 Unknown [id number] 2.16.840.1.285223.3.579. 2.175 1962 Unknown [id number] 2.16.840.1.846923.3.579. 2.1259 1962 Unknown [id number] 2.16.840.1.003757.3.579. 2.1259 1962 Unknown [id number] 2.16.840.1.235862.3.579. 2.1259 1962 Unknown [id number] 2.16.840.1.287885.3.579. 2.1259 1962 Unknown [id number] 2.16.840.1.246104.3.579. 2.1259 1962 Unknown [id number] 2.16.840.1.345876.3.579. 2.1259 1962 Unknown [id number] 2.16.840.1.014234.3.579. 2.1259 1962 Unknown [id number] 2.16.840.1.930602.3.579. 2.1259 1962 Unknown [id number] 2.16.840.1.955382.3.579. 2.1259 1962 Unknown [id number] 2.16.840.1.834057.3.579. 2.1258 1962 Unknown [id number] 2.16.840.1.725823.3.579. 2.1258 1962 Unknown [id number] 2.16.840.1.055192.3.579. 2.1258 1962 Unknown [id number] 2.16.840.1.238802.3.579. 2.1258 1962 Unknown [id number] 2.16.840.1.186578.3.579. 2.1258 1962 Unknown [id number] 2.16.840.1.992695.3.579. 2.1285 1962 Unknown [id number] 2.16.840.1.570739.3.579. 2.1285 1962 Unknown [id number] 2.16.840.1.086584.3.579. 2.1285 1962 Unknown [id number] 2.16.840.1.141726.3.579. 2.1285 1962 Unknown [id number] 2.16.840.1.287066.3.579. 2.1285 1962 Unknown [id number] 2.16.840.1.782260.3.579. 2.1285 1962 Unknown [id number] 2.16.840.1.423746.3.579. 2.1285 1962 Unknown [id number] 2.16.840.1.986988.3.579. 2.1285 1962 Unknown [id number] 2.16.840.1.155366.3.579. 2.1285 1962 Unknown [id number] 2.16.840.1.121139.3.579. 2.128 1959 Self-pay Unknown [id number] 2.16.840.1.798830.3.579. 2.531 Social History Date Type Detail Facility Tobacco smoking stat us MDIS Unknown if ever smoked [facility] GISELA PICHARDO Start: 1960 Sex Assigned At Not on file [facility] Start: 10-28-2022 End: 07-10-2023 Tobacco smoking status NHIS Never smoked tobacco [facility] Start: 10-28-2022 End: 07-10-2023 Tobacco use and exposure Smokeless tobacco non-user [facility] Start: 10-28-2023 End: 09-23-2024 Alcohol intake Current drinker of alcohol (finding) [facility] Start: 10-28-2023 End: 01-19-2024 History of Social function [facility] Start: 10-28-2023 End: 01-19-2024 Tobacco use panel [facility] Start: 07-10-2023 Alcohol Comment Alcohol: 1 or 2 drinks on a typical day/monthly or less Caffeine: 1-2 cups/day soda/pop [facility] Start: 1960 Sex Assigned At [facility] Start: 06-16-2024 End: 09-16-2024 Alcoholic beverage intake Ex-drinker (finding) [facility] Do you belong to any clubs or organizations such as adventism groups, unions, fraternal or athletic groups, or [...] To some extent [facility] (I/We) worried whejose er (my/our) food would run out before [...] Dates Cement Bn Bio 40 gm Rpl [id number] - [id number] Start: 11-06-2022 Cement Bn Bio 40 gm Rpl [id number] - [id number] Start: 11-06-2022 Component Fem 9 Randy Kn Lt Crcte Rtn Cmnt Persona Cocr - [id number] Start: 11-06-2022 Stem Xtn 30+ Mm 14mm Persona Tpr Kn Tib - [id number] Start: 11-06-2022 Component Ptlr 3 2mm Persona Alply Kn Strl Lf - [id number] Start: 11-06-2022 Insert Artc 8-9 C-D 10mm Kn Lt Vivacit-E Persona Strl - [id number] Start: 11-06-2022 Baseplate Tib 5d D Kn Lt Cmnt Stm Persona Tiv Strl - [id number] Start: 11-06-2022 Goals Date Patient Goal [...] Thank you signed documented in this encounter [facility] 10-15-2024 Telephone encounter Note Images from the [...] diet, exercise and weight loss. Thank you [facility] 10-15-2024 Telephone encounter Note signed [facility] 09-23-2024 Miscellaneous Notes Last OV 09/23/24 Last CBC 10/28/22.slm documented in this encounter [facility] 09-23-2024 Telephone encounter Note Last OV 09/23/24 Last CBC 10/28/22.slm [facility] 09-23-2024 History of Presen t illness Narrative Hafsa Steward [place] Date of visit: 09/23/2024 Date of : [...] Preop clearance 10/21/2024 Dr Brown hysterectomy fax [phone] History of Present Illness Patient here for follow-up visit. Requesting cardiac clearance for planned hysterectomy procedure coming up in the near future. Stated that she was diagnosed with a precancer cells. Patient with history of paroxysmal atrial fibrillation, type 2 diabetes mellitus, hypertension, hyperlipidemia. Stated that overall she is doing well. 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 [...] no hospital stay Diabetes mellitus, type 2 ([facility]) no medications-diet controlled Gastritis 2015 [...] 11/06/2022 Performed by Charles Frye MD at [facility] SKIN BIOPSY 2021 TONSILLECTOMY 1972 childhood TUBAL [...] Resource Strain: Low Risk (01/19/2024) Received from [facility] Overall Financial Resource Strain (CARDIA) Difficulty of Paying Living Expenses: Not hard at all Food Insecurity: No Food Insecurity (09/23/2024) Hunger Screening Food Insecurity - Worry: Never True Food Insecurity - Inability: Never True Transportation Needs: No Transportation Needs (01/19/2024) Received from [facility] PRAPARE - Transportation Lack of Transportation (Medical): No Lack of Transportation (Non-Medical): No Physical Activity: Insufficiently Active (01/19/2024) Received from [facility] Exercise Vital Sign Days of Exercise per Week: 2 days Minutes of Exercise per Session: 20 min Stress: Stress Concern Present (01/19/2024) Received from [facility] [employer] [place] [employer] Occup[employer] - Occupational Stress Questionnaire Feeling of Stress : To some extent Social Connections: Moderately Integrated (01/19/2024) Received from [facility] Social Connection and Isolation Panel [NHANES] Frequency of Communication with Friends and Family: Once a week Frequency of Social Gatherings with Friends and Family: More than three times a week Attends Congregation Services: 1 to 4 times per year Active Member of Clubs or Organizations: No Attends Club or Organization Meetings: Not on file Marital Status: Living with partner Interpersonal Safety: Not on file Housing Instability: Unknown (01/19/2024) Received from [facility] Housing Stability Vital Sign [...] MD Referring Physician: Nuzhat Mike MD [address] [place] [address] [facility] Miscellaneous Notes Left message for patient to remind them to bring their most current medication list with them to their appointment. [facility] 09-21-2024 Telephone encounter Note Left message for patient to remind them to bring their most current medication list with them to their appointment. [facility] History of Presen t illness Narrative Reason for Appointment: Patient ID: Hafsa Flores is a 64 y.o. female who presents for Pre-op Visit Patient presents today for Pre Op appointment. Patient is scheduled to undergo Da David assisted Laparoscopic Hysterectomy, possible exploratory laparotomy, possible BSO, possible cystoscopy on 10/21/[address] Brown at [facility]. MEDICATIONS Current Outpatient Medications Medication Instructions cholecalciferol [...] Ambulatory Problems Diagnosis Date Noted Primary hypertension ([facility]) 11/28/2016 Anxiety 07/19/2020 Chronic eczematous otitis externa of both ears 04/26/2021 Gastro-esophageal reflux disease without esophagitis 01/20/2024 Hematuria, microscopic 11/10/2017 Hyperlipidemia ([facility]) 11/03/2020 Irregular periods 08/06/2015 Menopausal and female climacteric states 05/04/2017 Mitral valve prolapse 07/19/2020 Class 1 obesity 07/09/2022 Palpitations 01/20/2024 Primary osteoarthritis of both knees 07/09/2022 Type 2 diabetes mellitus without complication ([facility]) 01/20/2024 Vitamin D deficiency 07/09/2022 Resolved Ambulatory Problems Diagnosis Date Noted Mixed dyslipidemia ([facility]) 07/24/2023 Osteoarthritis of left knee [...] nursing note reviewed. Exam conducted with a missile technician present. Vitals: Estimated body mass index [...] reviewed, and patient is to proceed to [facility] OR. Follow Up: Patient is to follow up at 1 & 6 weeks post operative to assess proper healing and recovery from procedure. Documented by Salina Salgado LPN on behalf of: Liam Brown DO documented in this encounter [facility] 09-14-2024 Telephone encounter Note Refills sent. [facility] 09-14-2024 Miscellaneous Notes Refills sent. documented in this encounter [facility] 09-09-2024 Telephone encounter Note Dexlansoprazole is the name of the rx she is currently taking. [facility] 09-09-2024 Miscellaneous Notes Dexlansoprazole is the name of the rx she is currently taking. Lmom for pt to cb, please ask cornelia's message and send back to her documented in this encounter [facility] 09-09-2024 Telephone encounter Note Lmom for pt to cb, please ask cornelia's message and send back to her [facility] 09-08-2024 Telephone encounter Note Patient is requesting dexilant - this works best for her. She thinks her insurance is trying to get her to try something else. She would prefer to stay on the dexilant. Uses [facility] in [place]. Thank you. [facility] 09-08-2024 Miscellaneous Notes Patient is requesting dexilant - this works best for her. She thinks her insurance is trying to get her to try something else. She would prefer to stay on the dexilant. Uses [facility] in [place]. Thank you. documented in this encounter [facility] 08-03-2024 History of Presen [...] Ambulatory Problems Diagnosis Date Noted Primary hypertension ([facility]) 11/28/2016 Anxiety 07/19/2020 Chronic eczematous otitis externa of both ears 04/26/2021 Gastro-esophageal reflux disease without esophagitis 01/20/2024 Hematuria, microscopic 11/10/2017 Hyperlipidemia ([facility]) 11/03/2020 Irregular periods 08/06/2015 Menopausal and female climacteric states 05/04/2017 Mitral valve prolapse 07/19/2020 Class 1 obesity 07/09/2022 Palpitations 01/20/2024 Primary osteoarthritis of both knees 07/09/2022 Type 2 diabetes mellitus without complication ([facility]) 01/20/2024 Vitamin D deficiency 07/09/2022 Resolved Ambulatory Problems Diagnosis Date Noted Mixed dyslipidemia ([facility]) 07/24/2023 Osteoarthritis of left knee 07/09/2022 Vaginal yeast infection 07/29/2023 Need for vaccination 07/29/2023 Nausea without vomiting 11/06/2022 Nephrolithiasis 11/10/2017 Pain in throat 05/20/2019 Jennifer-menopause 01/20/2024 Past Medical History: Diagnosis Date Atrial fib/flutter, transient ([facility]) Chronic ear infection GERD (gastroesophageal reflux disease) Hypertension ([facility]) HISTORY PAST MEDICAL HISTORY SOCIAL HISTORY Past Medical History: Diagnosis Date Atrial fib/flutter, transient ([facility]) Chronic ear infection GERD (gastroesophageal reflux disease) Hypertension ([facility]) Mitral valve prolapse Social History [...] nursing note reviewed. Exam conducted with a missile technician present. Vitals: Estimated body mass index [...] Liam Brown DO documented in this encounter [facility] 07-13-2024 History of Presen t illness Narrative Reason for Appointment: Patient ID: Hafsa Flores is a 64 y.o. female who presents for No chief complaint on file. Patient presents today via telephone call for a telehealth appointment. Patients Phone #: [phone] (mobile) Current Medications: has a current medication list which includes the following prescription(s): cholecalciferol, cranberry, dexlansoprazole, eliquis, fluocinolone, metoprolol succinate xl, and rosuvastatin. Medical History: Active Ambulatory Problems Diagnosis Date Noted Primary hypertension (CMS/HCC) 11/28/2016 Anxiety 07/19/2020 Chronic eczematous otitis externa of both ears 04/26/2021 Gastro-esophageal reflux disease without esophagitis 01/20/2024 Hematuria, microscopic 11/10/2017 Hyperlipidemia ([facility]) 11/03/2020 Irregular periods 08/06/2015 Menopausal and female climacteric states 05/04/2017 Mitral valve prolapse 07/19/2020 Class 1 obesity 07/09/2022 Palpitations 01/20/2024 Primary osteoarthritis of both knees 07/09/2022 Type 2 diabetes mellitus without complication ([facility]) 01/20/2024 Vitamin D deficiency 07/09/2022 Resolved Ambulatory Problems Diagnosis Date Noted Mixed dyslipidemia ([facility]) 07/24/2023 Osteoarthritis of left knee 07/09/2022 Vaginal yeast infection 07/29/2023 Need for vaccination 07/29/2023 Nausea without vomiting 11/06/2022 Nephrolithiasis 11/10/2017 Pain in throat 05/20/2019 Jennifer-menopause 01/20/2024 Past Medical History: Diagnosis Date Atrial fib/flutter, transient ([facility]) Chronic ear infection GERD (gastroesophageal reflux disease) Hypertension ([facility]) Family History Problem Relation Name [...] Liam Brown DO documented in this encounter [facility] 06-16-2024 History of Presen [...] Ambulatory Problems Diagnosis Date Noted Primary hypertension ([facility]) 11/28/2016 Anxiety 07/19/2020 Chronic eczematous otitis externa of both ears 04/26/2021 Gastro-esophageal reflux disease without esophagitis 01/20/2024 Hematuria, microscopic 11/10/2017 Hyperlipidemia ([facility]) 11/03/2020 Irregular periods 08/06/2015 Menopausal and female climacteric states 05/04/2017 Mitral valve prolapse 07/19/2020 Class 1 obesity 07/09/2022 Palpitations 01/20/2024 Primary osteoarthritis of both knees 07/09/2022 Type 2 diabetes mellitus without complication ([facility]) 01/20/2024 Vitamin D deficiency 07/09/2022 Resolved Ambulatory Problems Diagnosis Date Noted Mixed dyslipidemia ([facility]) 07/24/2023 Osteoarthritis of left knee [...] D&C Hysteroscopy with myosure performed at [facility] with Dr. Brown. Pathology results was reviewed with the patient in great detail and all restrictions have been lifted. Follow Up: Patient is to return to the office for annual exam unless needed otherwise. Documented by KAMLA Sharpe on behalf of: KAMLA Sharpe documented in this encounter [facility] 10-30-2023 Telephone encounter Note sent [facility] 10-30-2023 Miscellaneous Notes sent Pt called stating that in her appt she asked if she could get diflucan sent over as well with an abx to the pharm but they only received a script for the abx. Can she get diflucan as well? documented in this encounter [facility] 10-29-2023 Telephone encounter Note Pt called stating that in her appt she asked if she could get diflucan sent over as well with an abx to the pharm but they only received a script for the abx. Can she get diflucan as well? [facility] Evaluation note Diagnosis Vaginal yeast infection- Primary Candidiasis of vulva and vagina documented in this encounter [facility] HealthcareEvaluation noteNo assessment information availableOhiohealth [facility] Work Phone: Evaluation note* Diagnosis Post-menopausal bleeding Postmenopausal bleeding documented in this encounter [facility] HealthcareEvaluation note* Diagnosis Chronic eczematous otitis externa of left ear documented in this encounter [facility]* Diagnosis Post-menopausal bleeding Postmenopausal bleeding Burning with urination Dysuria documented in this encounter [facility] note* Diagnosis Mixed dyslipidemia (CMS/HCC) documented in this encounter [facility]* Diagnosis Postoperative examination Follow-up examination, following unspecified surgery documented in this encounter [facility]* Diagnosis Gastroesophageal reflux disease without esophagitis Esophageal reflux documented in this encounter [facility]* Diagnosis Gastroesophageal reflux disease without esophagitis Esophageal reflux documented in this encounter [facility] note* Diagnosis Vitamin D deficiency documented in this encounter [facility] note* Diagnosis Chronic eczematous otitis externa of left ear documented in this encounter [facility]* Diagnosis Preop examination Unspecified pre-operative examination Post-menopausal bleeding Postmenopausal bleeding Pelvic pain in female Unspecified symptom associated with female genital organs Dyspareunia in female Dysmenorrhea documented in this encounter [facility] note* Diagnosis Urinary tract infection with [...] pre-operative cardiovascular clearance documented [facility] this encounter [facility]* Diagnosis Urinary tract infection with hematuria, site unspecified- Primary Renal cyst Unspecified congenital cystic kidney disease Nephrolithiasis Calculus of kidney Hematuria, microscopic Microscopic hematuria Nephrolithiasis- Primary Calculus of kidney Hematuria, microscopic Microscopic hematuria Renal cyst Unspecified congenital cystic kidney disease Paroxysmal atrial fibrillation (CMS-HCC) Atrial fibrillation documented in this encounter [facility]* Diagnosis Chronic eczematous otitis externa of left ear documented in this encounter [facility] HealthcareInstructionsNot on filedocumented in this encounterProMedica Health SystemInstructionsNot on filedocumented in this encounterProMedica Health SystemInstructionsNot on filedocumented in this encounterProMedica Health SystemInstructionsNot on filedocumented in this encounterProMedica Health System Summary Purpose Family History No Family [...] and content) DATE CREATED AUTHOR 07/16/2020 [facility] DATE CREATED AUTHOR AUTHOR'S ORGANIZ ATION 09/10/2020 [facility] DATE CREATED AUTHOR AUTHOR'S ORGANIZ ATION 11/24/2020 [facility] DATE CREATED AUTHOR AUTHOR'S ORGANIZ ATION 11/08/2021 [facility] dical Specialist DATE CREATED AUTHOR AUTHOR'S ORGANIZ ATION 06/12/2024 [facility] DATE CREATED AUTHOR AUTHOR'S ORGANIZ ATION 09/19/2024 [facility] Specialists EPIC DATE CREATED AUTHOR AUTHOR'S ORGANIZ ATION 10/13/2024 [facility] Care Teams (unrecognized sec tion and content) Dog Handler Or Trainer Relationship Specialty Start Date End Date Vanesa Santa NP [address] [facility] [place] [address] PCP - [facility] 05/30/22 Nuzhat Mike MD [address] [facility] [place] [address] PCP - General Family Medicine 02/04/23 Team Status: Active Member Role Status Dates PHYSICIAN NO FAMILY Primary Care Provider Active Team Status: Inactive Member Role Status Dates PHYSICIAN NO FAMILY Primary Care Provider Active Start: June 04, 2024 End: June 04, 2024 Liam Brown DO Attending Provider Active Start : June 04, 2024 End: June 04, 2024 Dog Handler Or Trainer Relationship Specialty Start Date End Date Nuzhat Mike MD [address] [facility] [place] [address] PCP - General Family Medicine 02/04/23 Bisi Carcamo NP [address] [place] [address] PCP - [facility] 03/29/24 Dog Handler Or Trainer Relationship Specialty Start Date End Date Nuzhat Mike MD [address] [place] [address] PCP - General Family Medicine 02/04/23 Bisi Carcamo NP [address] [place] [address] PCP - [facility] 03/29/24 Dog Handler Or Trainer Relationship Specialty Start Date End Date Nuzhat Mike MD [address] [place] [address] PCP - General Family Medicine 02/04/23 Bisi Carcamo NP [address] [place] [address] PCP - [facility] 03/29/24 Dog Handler Or Trainer Relationship Specialty Start Date End Date Nuzhat Mike MD [address] [place] [address] PCP - General Family Medicine 02/04/23 Bisi Carcamo NP [address] [place] [address] PCP - [facility] 03/29/24 Dog Handler Or Trainer Relationship Specialty Start Date End Date Nuzhat Mike MD [address] [place] [address] PCP - General Family Medicine 02/04/23 Bisi Carcamo NP [address] [place] [address] PCP - [facility] 03/29/24 Dog Handler Or Trainer Relationship Specialty Start Date End Date Nuzhat Mike MD [address] [place] [address] PCP - General Family Medicine 02/04/23 Bisi Carcamo NP [address] [place] [address] PCP - [facility] 03/29/24 Dog Handler Or Trainer Relationship Specialty Start Date End Date Nuzhat Mike MD [address] [facility] [place] [address] PCP - General Family Medicine 02/04/23 Bisi Carcamo NP [address] [place] [address] PCP - [facility] 03/29/24 Dog Handler Or Trainer Relationship Specialty Start Date End Date Nuzhat Mike MD [address] [place] [address] PCP - General Family Medicine 05/03/19 Dog Handler Or Trainer Relationship Specialty Start Date End Date Nuzhat Mike MD [address] [place] [address] PCP - General Family Medicine 05/03/19 Dog Handler Or Trainer Relationship Specialty Start Date End Date Nuzhat Mike MD [address] [place] [address] PCP - General Family Medicine 05/03/19 Dog Handler Or Trainer Relationship Specialty Start Date End Date Nuzhat Mike MD [address] [place] [address] PCP - General Family Medicine 05/03/19 Goals [...] Preop clearance 09/30 Dr Brown hysterectomy fax [phone] Reason Onset Date Comments Med Refill 09/23/2024 [...] BE BASED ON THE PRIMARY CLINICAL RECORDS. [employer] provides no warranty or guarantee of the accuracy or completeness of information in this document.
--- OUTSIDE RECORDS SUMMARY | 2024-10-22 10:56 | XMS_ITS | CCD ---
Author Organization [facility] Care Team Providers Care Production Mechanic Name Role Phone Unavailable Primary Care Provider [...] Unava ilable DO Liam Brown Attending Provider [phone] NO FAMILY, PHYSICIAN Primary Care Unavailable Liam Brown Attending Unavailable Liam Brown Admitting Unavailable Carcamo EQUIPMENT CLEANER, Bisi Perera Unavailable IBSI CARCAMO Attending Unavailab le CARCAMOBISI Attending Unavailab le CARCAMOBISI Attending Unavailab ADALID Pillai Attending Unavailable BISI CARCAMO Referring Unavailab ADALID Pillai Attending Unavailable LIAM BROWN Attending Unavailable TERRY BORREROE Rock Referring Unavailable CARCAMOBISI RUBIO Attending Unavailab LIAM Awad Attending Unavailable CATHLEEN OLEA Attending Unavailable LIAM BROWN Attending Unavailable LIAM BROWN Attending Unavailable Nuzhat Mike MD Primary Care Provider [phone] LINDA LEARY Attending Unavailable NUZHAT MIKE Referring Unavailable NUZHAT MIKE Primary Care Unavailable LINDA LEARY Attending Unavailable LINDA LEARY Referring Unavailable NUZHAT MIKE Primary Care Unavailable LINDA LEARY Attending Unavailable LINDA LEARY Referring Unavailable NUHZAT MIKE Primary Care Unavailable LINDA LEARY Attending Unavailable LINDA LEARY M Referring Unavailable NUZHAT MIKE Primary Care Unavailable ELENILINDA WESTFALL Attending Unavailable LIDNA LEARY Referring Unavailable NUZHAT MIKE Primary Care [...] Cortisone; Translations: [CORTISONE] Drug Allergy 10-28-2023 Anxiety [facility] Work Phone: Medications Current Medications Medication Drug Class(es) Dates Sig (Normalized) Sig (Original) apixaban 5 mg oral tablet (20 sources) Factor Xa Inhibitor Start: 03-02-2024 End: 09-23-2024 take 1 tablet by mouth in the morning, then take 1 tablet by mouth at bedtime apixaban (ELIQUIS) 5 mg tablet Indications: Paroxysmal atrial fibrillation ([facility]) Take 1 tablet (5 mg total) by [...] WITH AUTO DIFFon BASOPHILS ABSOLUTE AUTO 0 [facility] Basophils/100 WBC (Bld) 0.4 % 0.2 - 2.0 % [facility] Eosinophils/100 WBC (Bld) 0.2 % Low 0.9 - 7.0 % [facility] Erythrocyte distribution width (RBC) [Ratio] 13.1 % 11.0 - 15.0 % [facility] Hematocrit (Bld) [Volume fraction] 44.9 % 36.0 - 48.0 % [facility] Hem[facility] (Bld) [Mass/Vol] 14.5 g/dL 12.0 - 16.0 g/dL [facility] IMMATURE GRANULOCYTES ABS AUTO 0.01 [facility] Immature granulocytes/100 WBC (Bld) 0.2 % 0.0 - 0.5 % [facility] Interpretation and review of laboratory results Abnormal [facility] LYMPHOCYTES ABSOLUTE AUTO 1.4 [facility] Lymphocytes/100 WBC (Bld) 30.5 % 20.5 - 60.0 % [facility] MCH (RBC) [Entitic mass] 28.1 pg 26.7 - 34.0 pg [facility] MCHC (RBC) [Mass/Vol] 32.3 g/dL 29.9 - 35.2 g/dL [facility] MCV (RBC) [Entitic vol] 87 fL 81.0 - 99.0 fL [facility] MONOCYTES ABSOLUTE AUTO 0.4 [facility] Monocytes/100 WBC (Bld) 8.2 % 1.7 - 12.0 % [facility] NEUTROPHILS ABSOLUTE AUTO 2.7 [facility] Neutrophils/100 WBC (Bld) 60.5 % 43.0 - 75.0 % [facility] Platelet mean volume (Bld) [Entitic vol] 9 fL Low 9.5 - 13.5 fL [facility] TBH EO # 0 [facility] PLT 240 [facility] RBC 5.16 [facility] WBC 4.5 [facility] ALL CBC WITH AUTO DIFFon BASOPHILS ABSOLUTE AUTO 0 [facility] Basophils/100 WBC (Bld) 0.2 % 0.2 - 2.0 % [facility] Eosinophils/100 WBC (Bld) 0.5 % Low 0.9 - 7.0 % [facility] Erythrocyte distribution width (RBC) [Ratio] 12.9 % 11.0 - 15.0 % [facility] Hematocrit (Bld) [Volume fraction] 42.1 % 36.0 - 48.0 % [facility] e Hemoglobin (Bld) [Mass/Vol] 13.7 g/dL 12.0 - 16.0 g/dL [facility] IMMATURE GRANULOCYTES ABS AUTO 0.02 [facility] Immature granulocytes/100 WBC (Bld) 0.2 % 0.0 - 0.5 % [facility] Interpretation and review of laboratory results Abnormal [facility] LYMPHOCYTES ABSOLUTE AUTO 1.2 [facility] Lymphocytes/100 WBC (Bld) 14.8 % Low 20.5 - 60.0 % [facility] MCH (RBC) [Entitic mass] 28.3 pg 26.7 - 34.0 pg [facility] MCHC (RBC) [Mass/Vol] 32.5 g/dL 29.9 [...] 5 Cholesterol [Mass/Vol] 144 mg/dL Low 150-200 [facility] Comment on above: Performed By: #### 2 4331-1 #### [facility] ([id number]) [address] [place] [address], [address] [place] [address] Cholesterol in HDL [Mass/Vol] 55 mg/dL Normal >39 [facility] Comment on above: Result Comment: HDL <40 mg/dL - High Risk HDL > or = 40mg/dL- Desirable HDL >60 mg/dL - Negative Risk Performed By: #### 2 4331-1 #### [facility] ([id number]) [address] [place] [address], [address] [place] [address] Cholesterol in LDL [Mass/Vol] 79 mg/dL Normal <130 [facility] Comment on above: Result Comment: LDL <100 mg/dL - Desirable LDL >160 mg/dL - High Risk Performed By: #### 2 4331-1 #### [facility] ([id number]) [address], [address] [place] [address] Cholesterol in VLDL [Mass/Vol] 10 mg/dL Normal 0-30 [facility] Comment on above: Performed By: #### 2 4331-1 #### [facility] ([id number]) [address], [address] [place] [address] CHOLESTEROL:HDL 2.6 Normal 1.0-5.0 [facility] Comment on above: Performed By: #### 2 4331-1 #### [facility] ([id number]) [address], [address] [place] [address] Triglyceride [Mass/Vol] 49 mg/dL Normal 27-150 [facility] Comment on above: Performed By: #### 2 4331-1 #### [facility] ([id number]) [address], [address] [place] [address] POCT EKGon 09-23-2024 [facility] Urinalysis macro (dipstick) panel (U)on 08-03-2024 Bilirubin, UA Negative Negative - 4(70) +++ mg/dL [facility] Blood, UA Negative Negative - 50 John/mcL [facility] Clarity, UA [facility] re Color, UA Yellow [facility] Health[facility] e Glucose, UA Negative Negative - 1999(110) ++++ mg/dL [facility] Interpretation and review of laboratory results Normal [facility] Ketones, UA Negative Negative - 160(16) ++++ mg/dL [facility] Leukocytes, UA Negative Negative - 500+++ Donte/mcL [facility] Nitrite, UA Negative Negative - Positive [facility] pH, UA 6 5 - 9 [facility] e Protein, UA Negative Negative - 1999(20) ++++ mg/dL [facility] Spec Grav, UA 1.01 1 - 1.03 [facility] care Urobilinogen, UA 0.2 0.2 - 12 mg/dL [facility] MAMM SCREENING BILATERAL W C finished yarn examiner 07-19-2024 MAMM SCREENING BILATERAL W CAD MAMM SCREENING BILATERAL W CAD HAFSA FLORES 1960 [id number] EXAM: MAMM SCREENING BILATERAL W CAD, 07/16/2024 [...] AM 1 c MAMM 1 YR Normal [facility] ALL CBC WITH AUTO DIFFon BASOPHILS ABSOLUTE AUTO 0.0 [facility] Basophils/100 WBC (Bld) 0.4 % 0.2 - 2.0 % [facility] Eosinophils/100 WBC (Bld) 0.6 % Low 0.9 - 7.0 % [facility] Erythrocyte distribution width (RBC) [Ratio] 13.0 % 11.0 - 15.0 % [facility] Hematocrit (Bld) [Volume fraction] 42.3 % 36.0 - 48.0 % [facility] Hemoglobin (Bld) [Mass/Vol] 13.8 g/dL 12.0 - 16.0 g/dL [facility] IMMATURE GRANULOCYTES ABS AUTO 0.00 [facility] Immature granulocytes/100 WBC (Bld) 0.0 % 0.0 - 0.5 % [facility] Interpretation and review of laboratory results Abnormal [facility] LYMPHOCYTES ABSOLUTE AUTO 1.6 [facility] Lymphocytes/100 WBC (Bld) 31.0 % 20.5 - 60.0 % [facility] MCH (RBC) [Entitic mass] 28.2 pg 26.7 - 34.0 pg [facility] MCHC (RBC) [Mass/Vol] 32.6 g/dL 29.9 - 35.2 g/dL [facility] MCV (RBC) [Entitic vol] 86.5 fL 81.0 - 99.0 fL [facility] MONOCYTES ABSOLUTE AUTO 0.4 [facility] Monocytes/100 WBC (Bld) 7.9 % 1.7 - 12.0 % [facility] NEUTROPHILS ABSOLUTE AUTO 3.1 [facility] Neutrophils/100 WBC (Bld) 60.1 % 43.0 - 75.0 % [facility] Platelet mean volume (Bld) [Entitic vol] 9.3 fL Low 9.5 - 13.5 fL [facility] are TBH EO # 0.0 [facility] TBH PLT 244 [facility] TB RBC 4.89 [facility] WBC 5.1 [facility] Babar 06-04-2024 L Specimen: [id number] Received: 06/07/24 Status: COLLEEN Carpio Num: [id number] Spec Type: Surgical Subm Dr: Liam Brown Tissues: A Endometrium - Curettings (ENDOMETRIAL CURRETTINGS) Procedures: HE/2, Gross/Micro L4 Age/ Patient Sex Location Account Attending Physician Hafsa Flores 64/F LABELL [id number] Liam Brown SPEC NUM: [id number] RECD: 06/07/24 STATUS: COLLEEN CARPIO NUM: [id number] ARELI: 06/04/[address]: Liam Brown ENTERED: 06/07/[address] [facility] [address]: Pepper,Lab SPEC TYPE: Surgical DEPT: [facility] ENTERED BY: [id number] RECV BY: [id number] ORDERED: HE/2, Gross/Micro L4 ORDERED: HE/2, Gross/Micro [...] performed supporting the above interpretation -------- Specimen: [id number] Received: 06/07/24 Status: COLLEEN Carpio Num: [id number] Spec Type: Surgical Subm Dr: Liam Brown Tissues: A Endometrium - Curettings (ENDOMETRIAL CURRETTINGS) Procedures: HE/2, Gross/Micro L4 -------- Patient: Candy Floresyn Katelyn [id number] (Continued) -------- Specimen: [id number] Received: 06/07/24 (Continued) Signed (signature on file) Armin Alexander MD 06/10/241047 -------- Specimen: [id number] Received: 06/07/24 Status: COLLEEN Carpio Num: [id number] Spec Type: Surgical Subm Dr: Liam Brown Tissues: A Endometrium - Curettings (ENDOMETRIAL CURRETTINGS) Procedures: HE/2, Gross/Micro L4 -------- Patient: Hafsa Flores [id number] (Continued) -------- Specimen: [id number] Received: 06/07/24 (Continued) CPT Codes 61319 -------- -------- Specimen: [id number] Received: 06/07/24 Status: COLLEEN Carpio Num: [id number] Spec Type: Surgical Subm Dr: Liam Brown Tissues: A Endometrium - Curettings (ENDOMETRIAL CURRETTINGS) Procedures: HE/2, Gross/Micro L4 -------- Patient: Hafsa Flores [id number] (Continued) -------- Signed (signature on file) Armin Alexander MD 06/10/241047 Normal [facility] ALL CBC WITH AUTO DIFFon BASOPHILS ABSOLUTE AUTO 0.0 [facility] Basophils/100 WBC (Bld) 0.4 % 0.2 - 2.0 % [facility] Eosinophils/100 WBC (Bld) 1.0 % 0.9 - 7.0 % [facility] Erythrocyte distribution width (RBC) [Ratio] 13.1 % 11.0 - 15.0 % [facility] Hematocrit (Bld) [Volume fraction] 42.6 % 36.0 - 48.0 % [facility] Health[facility] e Hemoglobin (Bld) [Mass/Vol] 14.0 g/dL 12.0 - 16.0 g/dL [facility] IMMATURE GRANULOCYTES ABS AUTO 0.01 [facility] Immature granulocytes/100 WBC (Bld) 0.2 % 0.0 - 0.5 % [facility] Interpretation and review of laboratory results Abnormal [facility] LYMPHOCYTES ABSOLUTE AUTO 1.1 Low [facility] Lymphocytes/100 WBC (Bld) 21.1 % 20.5 - 60.0 % [facility] MCH (RBC) [Entitic mass] 28.4 pg 26.7 - 34.0 pg [facility] MCHC (RBC) [Mass/Vol] 32.9 g/dL 29.9 - 35.2 g/dL [facility] MCV (RBC) [Entitic vol] 86.4 fL 81.0 - 99.0 fL [facility] MONOCYTES ABSOLUTE AUTO 0.3 [facility] Monocytes/100 WBC (Bld) 6.7 % 1.7 - 12.0 % [facility] NEUTROPHILS ABSOLUTE AUTO 3.6 [facility] Neutrophils/100 WBC (Bld) 70.6 % 43.0 - 75.0 % [facility] Platelet mean volume (Bld) [Entitic vol] 9.5 fL 9.5 - 13.5 fL [facility] are TBH EO # 0.1 [facility] TBH PLT 231 [facility] Health[facility] e TB RBC 4.93 [facility] e TBH WBC 5.1 [facility] CL[facility] US [...] 11-06-2021 CULTURE, URINE, ROUTINE SEE NOTE Normal [facility] Comment on above: Order Comment: [facility] Testing performed at: QPT, [facility], [address] [place] [address], [address] [place] [address], [place], [address], Child Welfare Worker: Dinh Ackerman MD [facility] Collection Date/Time: [id number] [facility] Results Received Date/Time: [id number] [facility] Reported Date/Time: [id number] FASTING: NO Result Comment: CULT URE, URINE, ROUTINE Micro Number: [id number] Test Status: Final Specimen Source: Urine Specimen Quality: Adequate Result: No Growth Performed By: #### 6 [id number] #### [facility] [address] [place] [address] [id number] 11-23-2020 SARS-CoV-2 Normal [facility] Comment on above: Performed By: #### C OVID #### [address] [address] Assistant Professor Of Geography: Timothy Bain MD SARS-CoV-2 DETECTED Abnormal NOTDET [facility] Comment on above: Result Comment: The specimen is POSITIVE for SARS-Cov-2, the novel coronavirus associated with COVID-19. Angi SARS-CoV-2 for use on the [employer] is a real-time RT-PCR test intended [...] this assay. Fact sheet for Healthcare Providers: https://www.fda.gov/media/361825/download Fact sheet for Patients: https://www.fda.gov/media/209663/download METHODOLOGY: RT-PCR Results reported to the appropriate Health Department Performed By: #### C OVID #### [address] [id number] Assistant Professor Of Geography: Timothy Bain MD [id number] 11-22-2020 SARS-CoV-2 Source .NASOPHARYNGEAL SWAB Normal [facility] Comment on above: Performed By: #### C OVID #### [address] [id number] Assistant Professor Of Geography: Timothy Bain MD [id number] 11-03-2020 SARS-CoV-2 Not Detected Normal [facility] Comment on above: Result Comment: The specimen is NEGATIVE for SARS-CoV-2, the novel coronavirus associated with COVID-19. A negative result does not rule out COVID-19. Angi SARS-CoV-2 for use on the [employer] is a real-time RT-PCR test intended [...] this assay. Fact sheet for Healthcare Providers: https://www.fda.gov/media/435028/download Fact sheet for Patients: https://www.fda.gov/media/641513/download METHODOLOGY: RT-PCR Performed By: #### C OVID #### [address] [id number] Assistant Professor Of Geography: Timothy Bain MD SARS-CoV-2 [facility] Comment on above: Performed By: #### C OVID #### [facility] [address] [place] [address] [id number] Assistant Professor Of Geography: Timothy Bain MD SARS-CoV-2,[facility] Comment on above: Performed By: #### C OVID #### [facility] [address] [place] [address] [id number] Assistant Professor Of Geography: Timothy Bain MD SARS-CoV-2 Source .NASOPHARYNGEAL SWAB Normal [facility] Comment on above: Performed By: #### C OVID #### [facility] [address] [place] [address] [id number] Assistant Professor Of Geography: Timothy Bain MD [id number] 10-22-2020 SARS-CoV-2 Not Detected Normal NOTDET [facility] Comment on above: Result Comment: The specimen is NEGATIVE for SARS-CoV-2, the novel coronavirus associated with COVID-19. A negative result does not rule out COVID-19. Angi SARS-CoV-2 for use on the [employer] is a real-time RT-PCR test intended [...] this assay. Fact sheet for Healthcare Providers: https://www.fda.gov/media/181331/download Fact sheet for Patients: https://www.fda.gov/media/220756/download METHODOLOGY: RT-PCR Performed By: #### C OVID #### [facility] [address] [place] [address] [id number] Assistant Professor Of Geography: Timothy Bain MD SARS-CoV-2 [facility] Comment on above: Performed By: #### C OVID #### [facility] [address] [place] [address] [id number] Assistant Professor Of Geography: Timothy Bain MD SARS-CoV-2,[facility] Comment on above: Performed By: #### C OVID #### [facility] [address] [place] [address] Assistant Professor Of Geography: Timothy Bain MD [id number] 10-20-2020 SARS-CoV-2 Source .NASOPHARYNGEAL SWAB Normal [facility] Comment on above: Performed By: #### C OVID #### [address] [place], [place] [id number] Assistant Professor Of Geography: Timothy Bain MD [id number] 10-07-2020 SARS-CoV-2 Not Detected Normal Not Detected [facility] Comment on above: Result Comment: (NOT E) This nucleic acid amplification test was developed and its performance characteristics determined by [employer]. Nucleic acid amplification tests include PCR and [...] detected) result in this assay. Performed At: [facility] [address] [place], [place] [id number] Ce Rogel PhD Ph:[phone] Performed By: #### A COV #### [facility] [address] [place] [address] Assistant Professor Of Geography: Edmund Gerard MD [id number] 09-30-2020 SARS-CoV-2 Not Detected Normal Not Detected [facility] Comment on above: Result Comment: (NOT E) This nucleic acid amplification test was developed and its performance characteristics determined by [employer]. Nucleic acid amplification tests include PCR and [...] detected) result in this assay. Performed At: [facility] [address] [facility] [place] [id number] Lonnie Perera MD Ph:[phone] Performed By: #### A COV #### [facility] [address] [place] [address] Assistant Professor Of Geography: Edmund Gerard MD [id number] 09-15-2020 SARS-CoV-2 Not Detected Normal Not Detected [facility] Comment on above: Result Comment: (NOT E) This nucleic acid amplification test was developed and its performance characteristics determined by [employer]. Nucleic acid amplification tests include PCR and [...] detected) result in this assay. Performed At: [facility] [address] [facility] [place] [id number] Lonnie Perera MD Ph:[phone] Performed By: #### A COV #### [facility] [address] [place] [address] Assistant Professor Of Geography: Edmund Gerard MD [id number] 09-10-2020 SARS-CoV-2 Not Detected Normal Not Detected [facility] Comment on above: Result Comment: (NOT E) This nucleic acid amplification test was developed and its performance characteristics determined by [employer]. Nucleic acid amplification tests include PCR and [...] this assay. Performed At: [facility] [address] [place], [place] [id number] Yeseniasheree Sarahtiannasheree [facility] Ph:[phone] Performed By: #### A COV #### [facility] [address] [place] [address] Assistant Professor Of Geography: Edmund Gerard MD [id number] 07-10-2020 SARS-CoV-2 Not Detected Normal Not Detected [facility] Comment on above: Result Comment: (NOT E) This nucleic acid amplification test was developed and its performance characteristics determined by [employer]. Nucleic acid amplification tests include PCR and [...] detected) result in this assay. Performed At: [facility] [address] [facility] [place] [id number] Lonnie Perera MD Ph:[phone] Performed By: #### A COV #### [facility] [address] [place], [place] [id number] Assistant Professor Of Geography: Edmund Gerard MD Vital Signs Date Time Vital Sign Value Performing Clinician Denisei lopez 09-23-2024 11:06-0500 Body height 162.6 cm Linda Diaz MD Work Phone: [facility] 09-23-2024 11:06-0500 Body mass index (BMI) [Ratio] 32.44 kg/m2 Linda Diaz MD Work Phone: [facility] 09-23-2024 11:06-0500 Body weight 85.73 kg Linda Diaz MD Work Phone: [facility] 09-23-2024 11:06-0500 Diastolic blood pressure 90 mm[Hg] Linda Diaz MD Work Phone: [facility] 09-23-2024 11:06-0500 Heart rate 71 /min Linda Diaz MD Work Phone: [facility] 09-23-2024 11:06-0500 SaO2% (BldA) [Mass fraction] 98 % Linda Diaz MD Work Phone: [facility] 09-23-2024 11:06-0500 Systolic blood pressure 142 mm[Hg] Linda Diaz MD Work Phone: [facility] 09-16-2024 09:14-0500 Body mass index (BMI) [Ratio] 32.12 kg/m2 Liam Stephanie DO Work Phone: [facility] 09-16-2024 09:14-0500 Body weight 84.88 kg Liam Stephanie DO Work Phone: [facility] 09-16-2024 09:14-0500 Diastolic blood pressure 84 mm[Hg] Liam Stephanie DO Work Phone: [facility] 09-16-2024 09:14-0500 Systolic blood pressure 124 mm[Hg] Liam Stephanie DO Work Phone: [facility] 08-03-2024 14:53-0500 Body mass index (BMI) [Ratio] 31.82 kg/m2 Liam Stephanie DO Work Phone: [facility] 08-03-2024 14:53-0500 Body weight 84.1 kg Liam Stephanie DO Work Phone: [facility] 08-03-2024 14:53-0500 Diastolic blood pressure 70 mm[Hg] Liam Stephanie DO Work Phone: [facility] 08-03-2024 14:53-0500 Systolic blood pressure 120 mm[Hg] Liam Stephanie DO Work Phone: [facility] 06-16-2024 14:11-0400 Body mass index (BMI) [Ratio] 31.43 kg/m2 Cathleen Picacho PA Work Phone: [facility] 06-16-2024 14:110400 Body weight 83.06 kg Cathleen CASON Work Phone: [facility] 06-16-2024 14:11-0400 Diastolic blood pressure 70 mm[Hg] Cathleen CASON Work Phone: [facility] 06-16-2024 14:11-0400 Systolic blood pressure 120 mm[Hg] Cathleen CASON Work Phone: [facility] Healthcare Encounters Encounter Date Encounter Type Care Provider Facility Start: 10-21-2024 End: 10-21-2024 [facility] Result Encounter Generic External Data Provider [facility] External [facility] Unsolicited Start: 10-21-2024 End: 10-21-2024 [facility] Result Encounter Generic External Data Provider [facility] External Department Unsolicited Start: 10-17-2024 End: 10-18-2024 Refill Bisi Carcamo NP Work Phone: [facility] Comment on above: 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 Start: 10-15-2024 End: 10-15-2024 [facility] Result Encounter Generic External Data Provider [facility] External Department Unsolicited Start: 10-15-2024 End: 10-15-2024 [facility] Result Encounter Generic External Data Provider [facility] External Department Unsolicited Start: 10-15-2024 End: 10-18-2024 Telephone encounter [facility] Comment on above: Crestor Start: 10-09-2024 End: 10-09-2024 ambulatory NUZHAT Francois CEE [facility] Start: 09-23-2024 End: 09-23-2024 Office outpatient visit 15 minutes Linda Diaz MD Work Phone: [facility] Comment on above: Preop cardiovascular exam (Primary Dx); Paroxysmal atrial fibrillation (CMS-HCC); Mild mitral regurgitation; Mild tricuspid regurgitation; Primary hypertension; Hyperlipidemia, unspecified hyperlipidemia type; Encounter for pre-operative cardiovascular clearance Start: 09-23-2024 End: 09-23-2024 Patient encounter status Linda Diaz MD Work Phone: [facility] Start: 09-23-2024 End: 09-23-2024 Preoperative state Linda Diaz MD Work Phone: [facility] Start: 09-23-2024 Encounter for preprocedural cardiovascular examination [facility] Start: 09-23-2024 End: 09-24-2024 Refill Lashell Shaffer RN [facility] Comment on above: Med Refill Start: 09-21-2024 End: 09-21-2024 Telephone encounter Maegan Carter CMA [facility] Start: 09-16-2024 End: 09-16-2024 Bamboo flowsheet Liam Stephanie DO Work Phone: [facility] Start: 09-16-2024 End: 09-16-2024 Bamboo flowsheet Liam Stephanie DO Work Phone: [facility] Start: 09-16-2024 End: 09-16-2024 Office outpatient visit 15 minutes Liam Stephanie DO Work Phone: [facility] Comment on above: Preop examination; Post-menopausal bleeding; Pelvic pain in female; Dyspareunia in female; Dysmenorrhea Start: 09-16-2024 End: 09-16-2024 Preprocedural examination done Liam Stephanie DO Work Phone: [facility] Work Phone: Start: 09-16-2024 End: 09-16-2024 ambulatory LIAM STEPHANIE Not Available Start: 09-14-2024 End: 09-14-2024 Refill Nuzhat Mike MD Work Phone: [facility] Comment on above: Vitamin D deficiency Start: 09-08-2024 End: 09-09-2024 Refill Nuzhat Mike MD Work Phone: [facility] Comment on above: Gastroesophageal ref lux disease without esophagitis Start: 09-07-2024 End: 09-09-2024 Refill Urvashi Carr EQUIPMENT CLEANER Work Phone: [facility] Comment on above: Gastroesophageal ref lux disease without esophagitis Start: 08-18-2024 End: 08-18-2024 Refill Bisi Carcamo EQUIPMENT CLEANER Work Phone: [facility] Comment on [...] Start: 07-30-2024 End: 07-30-2024 Refill Bisi Carcamo EQUIPMENT CLEANER Work Phone: [facility] Comment on above: 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 Start: 07-16-2024 End: 07-16-2024 ambulatory LIAM R STEPHANIE [facility] Start: 07-13-2024 End: 07-13-2024 Phys/qhp telephone evaluation [...] Start: 06-05-2024 End: 06-07-2024 Refill Bisi Carcamo EQUIPMENT CLEANER Work Phone: [facility] Comment on above: 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 Start: 06-04-2024 End: 06-04-2024 Clinisync Result Encounter Generic External Data Provider [facility] Unsolicited Start: 06-04-2024 End: 06-04-2024 Clinisync Result Encounter Generic External Data Provider [facility] External [facility] Unsolicited Start: 06-04-2024 End: 06-04-2024 ambulatory PHYSICIAN NO [facility] Work Phone: Start: 06-04-2024 End: 06-04-2024 Departed Referred PHYSICIAN [facility] Start: 06-02-2024 End: 06-02-2024 ambulatory PHILIPP LENNON [facility] Start: 05-24-2024 End: 05-24-2024 Clinisync Result Encounter Generic External Data Provider [facility] External Department Unsolicited Start: 05-24-2024 End: 05-24-2024 Clinisync Result Encounter Generic External Data Provider [facility] Unsolicited Start: 05-05-2024 End: 05-05-2024 ambulatory LIAM STEPHANIE Not Available Start: 04-29-2024 End: 04-29-2024 ambulatory BISI CARCAMO Not Available Start: 04-07-2024 End: 04-07-2024 ambulatory LIAM STEPHANIE Not Available Start: 03-17-2024 End: 03-17-2024 ambulatory [facility] Start: 03-17-2024 End: 03-17-2024 ambulatory [facility] Start: 03-15-2024 End: 03-15-2024 ambulatory ADALID L FLORO Not Available Start: 03-04-2024 End: 03-04-2024 ambulatory BISI CARCAMO Not Available Start: 03-02-2024 End: 03-02-2024 ambulatory LINDA Mireles [facility] Start: 02-16-2024 End: 02-16-2024 ambulatory BISI A [...] End: 11-23-2020 Patient encounter procedure SOHAIL MORGAN [facility] Start: 11-22-2020 End: 11-22-2020 Subsequent hospital visit by physician [facility] Start: 11-02-2020 End: 11-03-2020 Patient encounter procedure SOHAIL MORGAN [facility] Start: 11-02-2020 End: 11-02-2020 Subsequent hospital visit by physician [facility] Start: 10-19-2020 End: 10-20-2020 Patient encounter procedure SOHAIL CATHY [facility] Start: 10-19-2020 End: 10-19-2020 Subsequent hospital visit by physician VALDEMAR BOATENG DOCTOR Start: 10-05-2020 End: 10-06-2020 Patient encounter procedure SOHAIL CATHY [facility] Start: 10-05-2020 End: 10-05-2020 Subsequent hospital visit by physician [facility] Start: 09-27-2020 End: 09-28-2020 Patient encounter procedure [facility]OM MORGAN [facility] Start: 09-27-2020 End: 09-27-2020 Subsequent hospital visit by physician [facility]DE[facility] Start: 09-14-2020 End: 09-15-2020 Patient encounter procedure TOM MORGAN [facility] Start: 09-14-2020 End: 09-14-2020 Subsequent hospital visit by physician [facility]DE[facility] Start: 09-07-2020 End: 09-08-2020 Patient encounter procedure TOM MORGAN [facility] Start: 09-07-2020 End: 09-07-2020 Subsequent hospital visit by physician [facility] Start: 08-31-2020 End: 09-01-2020 Patient encounter procedure TOM MORGAN [facility] Start: 08-31-2020 End: 08-31-2020 Subsequent hospital visit by physician [facility]DEMAR [facility] DO[facility] Start: 08-16-2020 End: 08-17-2020 Patient encounter procedure TOM MORGAN [facility] Start: 08-16-2020 End: 08-16-2020 Subsequent hospital visit by physician [facility]DE[facility] Start: 07-10-2020 Patient encounter procedure NUZHAT MIKE Facility:[facility] Start: 07-07-2020 End: 07-08-2020 Patient encounter procedure TOM MORGAN [facility] Start: 07-07-2020 End: 07-07-2020 Subsequent hospital [...] Phone: Start: 07-19-2024 Mammography Bisi Hernandes marilee EQUIPMENT CLEANER Work Phone: Start: 06-04-2024 ALL CBC WITH [...] Screening for malign ant neoplasm of cervix [facility] Start: 07-03-2027 Screening for malign ant neoplasm of cervix [facility] Start: 02-15-2027 Screening for malign ant neoplasm of cervix Pap Smear [facility] Start: 03-05-2026 Glaucoma screening Diabetes: R etinopathy Screening [facility] Start: 09-23-2025 Adult BMI Screening Adult BMI Screen ing [facility] Start: 09-23-2025 Tobacco Screening Tobacco Screening [facility] Start: 07-19-2025 Screening for malign ant neoplasm of breast Mammogram [facility] Start: 06-02-2025 Adult BMI Screening Adult BMI Screen ing [facility] Start: 06-02-2025 Tobacco Screening Tobacco Screening [facility] Start: 03-07-2025 End: 03-07-2025 Patient encounter procedure 03/07/2025 10:00 AM EDT Office Visit [facility] [address] [place] [address] Charles Frye MD [address] [place] [address] [facility] Start: 01-19-2025 Urine screening for protein Diabetes: Urine Protein Screening [facility] Start: 09-23-2024 End: 09-23-2024 Patient encounter procedure 09/23/2024 11:15 AM EST [facility] [address] [place] [address] Linda Diaz MD [address] [place] [address] [facility] Start: 09-16-2024 End: 09-16-2024 Patient encounter procedure [facility] Comment on above: Arrived Start: 08-03-2024 End: 08-03-2024 Patient encounter procedure [facility] Comment on above: Arrived Start: 06-16-2024 End: 06-16-2024 Patient encounter procedure 06/16/2024 2:10 PM EDT Office Visit [facility] [address] [place] [id number] Cathleen Olea PA [address] [place] [address] Arrived [facility] Comment on above: Arrived Start: 06-04-2024 End: 06-04-2024 Patient encounter procedure 06/04/2024 7:30 AM EDT Procedure Visit [facility] Liam Brown DO [address] [place], [place] [id number] [facility] Start: 05-30-2024 COVID-19 Vaccine ( season) COVID-19 Vaccine () [facility] Start: 05-30-2024 Influenza vaccination [facility] Start: 04-21-2024 Screening for malign ant neoplasm of breast Mammogram [facility] Start: 04-20-2024 Hemoglobin A1c measurement Diabetes: Hemoglobin A1C [facility] Start: 02-01-2024 Screening for malign ant neoplasm of colon [facility] Start: 01-23-2024 Urine screening for protein Diabetes: Urine Protein Screening [facility] Start: 01-20-2024 End: 01-20-2024 Patient encounter procedure 01/20/2024 2:00 PM EDT Office Visit [facility] [address] [place] [address] Bisi Carcamo NP [address] [place], [place] [phone] [facility] Start: 12-06-2023 Glaucoma screening Diabetes: R etinopathy Screening [facility] Start: 04-23-2023 Hemoglobin A1c measurement Diabetes: Hemoglobin A1C [facility] Start: 03-05-2022 DTaP,Tdap and Td Vac cines (2 - Td or Tdap) DTaP,Tdap and Td Vaccines (2 - Td or Tdap) [facility] Start: 05-30-2020 Influenza vaccination Flu vaccine (# 1) [place], [place] Start: 2012 Administration of varicella zoster vaccine Zoster (Shingles) Vaccine (1 of 2) [facility] Start: 2012 Screening for malign ant neoplasm of breast Breast cancer screen [place], [place] Start: 2012 Screening for malign ant neoplasm of colon Colon cancer screen colonoscopy [place], [place] Start: 2012 Shingles Vaccine (1 of 2) Gomez gles Vaccine (1 of 2) [place] Start: 2002 Lipid panel Lipid screen [place], [place] Start: 1983 Screening for malign ant neoplasm of cervix [facility] Start: 1981 DTaP/Tdap/Td vaccine (1 - Tdap) DTaP/Tdap/Td vaccine (1 - Tdap) [place] Start: 1980 Adult BMI Follow Up Plan Adult BMI Follow Up Plan [facility] Start: 1977 HIV screening HIV screen Eusebia Morales [facility] [place] Start: 1974 Depression Screening Depression Scre vijay [facility] Start: 1962 Hepatitis C screening Hepatitis C sc reesheree [place], [place] Start: 1962 Screening for malign ant neoplasm of colon [facility] End: 10-19-2020 COVID-19 COVID-19 Lab Routine Once for 1 Occurrences starting 10/19/2020 until 10/19/2020 [place] Comment on above: Once for 1 Occurrenc es starting 10/19/2020 until 10/19/2020 COVID-19 [facility] [place] End: 11-02-2020 COVID-19 COVID-19 Lab Routine Once for 1 Occurrences starting 11/02/2020 until 11/02/2020 [place] Comment on above: Once for 1 Occurrenc es starting 11/02/2020 until 11/02/2020 End: 11-22-2020 COVID-19 COVID-19 Lab Routine Once for 1 Occurrences starting 11/22/2020 until 11/22/2020 [facility] Work Phone: Comment on above: Once for 1 Occurrenc es starting 11/22/2020 until 11/22/2020 End: 07-07-2020 Covid-19 Ambulatory Covid-19 Ambulatory Lab Routine Once for 1 Occurrences starting 07/07/2020 until 07/07/2020 [place] Comment on above: Once for 1 Occurrenc es starting 07/07/2020 until 07/07/2020 Covid-19 Ambulatory [place] End: 09-07-2020 Covid-19 Ambulatory Covid-19 Ambulatory Lab Routine Once for 1 Occurrences starting 09/07/2020 until 09/07/2020 [place] Comment on above: Once for 1 Occurrenc es starting 09/07/2020 until 09/07/2020 End: 09-14-2020 Covid-19 Ambulatory Covid-19 Ambulatory Lab Routine Once for 1 Occurrences starting 09/14/2020 until 09/14/2020 [place] Comment on above: Once for 1 Occurrenc es starting 09/14/2020 until 09/14/2020 End: 09-27-2020 Covid-19 Ambulatory Covid-19 Ambulatory Lab Routine Once for 1 Occurrences starting 09/27/2020 until 09/27/2020 [place] Comment on above: Once for 1 Occurrenc es starting 09/27/2020 until 09/27/2020 End: 10-05-2020 Covid-19 Ambulatory Covid-19 Ambulatory Lab Routine Once for 1 Occurrences starting 10/05/2020 until 10/05/2020 [place] Comment on above: Once for 1 Occurrenc es starting 10/05/2020 until 10/05/2020 End: 08-16-2020 Covid-19 Ambulatory Covid-19 Ambulatory Lab Routine Once for 1 Occurrences starting 08/16/2020 until 08/16/2020 [place] Comment on above: Once for 1 Occurrenc es starting 08/16/2020 until 08/16/2020 End: 08-31-2020 Covid-19 Ambulatory Covid-19 Ambulatory Lab Routine Once for 1 Occurrences starting 08/31/2020 until 08/31/2020 [place] Comment on above: Once for 1 Occurrenc es starting 08/31/2020 until 08/31/2020 End: 09-23-2025 Lipid 1996 panel - Serum or Plasma Lipid profile Lab Routine Primary hypertension 1 Occurrences starting 09/23/2024 until 09/23/2025 [facility] Work Phone: Comment on above: 1 Occurrences starti ng 09/23/2024 until 09/23/2025 Immunizations Immunization Date Immunization Notes Care Provider Prosper conde 07-24-2023 influenza, injectabl e, quadrivalent, [facility]ative [facility] influenza virus vacc ine, unspecified formulation Generic Provider [facility] 06-11-2022 influenza, injectabl e, quadrivalent, preservative free Generic Provider [facility] 09-07-2020 influenza, high dose seasonal, preservative-free Generic Provider [facility] 09-30-2019 Influenza, injectabl e, Madin [place] Canine Kidney, preservative free, quadrivalent Generic Provider [facility] 07-07-2019 Seasonal, quadrivale nt, recombinant, injectable influenza vaccine, preservative free Generic Provider [facility] 09-14-2018 influenza, injectabl e, quadrivalent, preservative free Generic Provider [facility] 06-29-2017 influenza, injectabl e, quadrivalent, contains preservative Generic Provider [facility] 08-03-2015 influenza, seasonal, injectable, preservative free Generic Provider [facility] 03-05-2012 tetanus toxoid, redu alyx diphtheria toxoid, and acellular pertussis vaccine, adsorbed Generic Provider [facility] Payers Date Payer Category Payer [facility] er Subscriber Plan / Payer (Effective 2020-Present) Name: Hafsa Flores Relation to Subscriber: Self Name: Hafsa Flores Payer ID: Not on file Type: Not on file Address: [address] [place] [id number] 2020 Unknown [facility] xxxxxx [id number] 2020-Present [phone] [address] [place] [id number]. 2.7.3.607581.315 2010 [facility] Managed Care - Other ANTH [id number]. [id number] 2010 Unknown [id number] 1.2.840.066908.1.13.239. 2.7.3.939634.315 1962 Unknown [id number] 2.16.840.1.555828.3.579. 2.593 1962 Unknown [id number] 2.16.840.1.696963.3.579. 2.175 1962 Unknown [id number] 2.16.840.1.684656.3.579. 2.175 1962 Unknown [id number] 2.16.840.1.128656.3.579. 2.175 1962 Unknown [id number] 2.16.840.1.233684.3.579. 2.175 1962 Unknown [id number] 2.16.840.1.817296.3.579. 2.175 1962 Unknown [id number] 2.16.840.1.787446.3.579. 2.1259 1962 Unknown [id number] 2.16.840.1.227921.3.579. 2.1259 1962 Unknown [id number] 2.16.840.1.595715.3.579. 2.1259 1962 Unknown [id number] 2.16.840.1.073844.3.579. 2.1259 1962 Unknown [id number] 2.16.840.1.774110.3.579. 2.1259 1962 Unknown [id number] 2.16.840.1.730522.3.579. 2.1259 1962 Unknown [id number] 2.16.840.1.955825.3.579. 2.1259 1962 Unknown [id number] 2.16.840.1.352971.3.579. 2.1259 1962 Unknown [id number] 2.16.840.1.882159.3.579. 2.1259 1962 Unknown [id number] 2.16.840.1.638661.3.579. 2.1258 1962 Unknown [id number] 2.16.840.1.508515.3.579. 2.1258 1962 Unknown [id number] 2.16.840.1.989187.3.579. 2.1258 1962 Unknown [id number] 2.16.840.1.908773.3.579. 2.1258 1962 Unknown [id number] 2.16.840.1.474314.3.579. 2.1258 1962 Unknown [id number] 2.16.840.1.538190.3.579. 2.1285 1962 Unknown [id number] 2.16.840.1.672651.3.579. 2.1285 1962 Unknown [id number] 2.16.840.1.698674.3.579. 2.1285 1962 Unknown [id number] 2.16.840.1.518368.3.579. 2.1285 1962 Unknown [id number] 2.16.840.1.400655.3.579. 2.1285 1962 Unknown [id number] 2.16.840.1.259664.3.579. 2.1285 1962 Unknown [id number] 2.16.840.1.592032.3.579. 2.1285 1962 Unknown [id number] 2.16.840.1.036790.3.579. 2.1285 1962 Unknown [id number] 2.16.840.1.641834.3.579. 2.1285 1962 Unknown [id number] 2.16.840.1.732021.3.579. 2.128 1959 Self-pay Unknown [id number] 2.16.840.1.219178.3.579. 2.531 Social History Date Type Detail Facility Tobacco smoking stat us ILIS Unknown if ever smoked [facility] Start: 1960 Sex Assigned At Not on file [facility] Start: 10-28-2022 End: 07-10-2023 Tobacco smoking status [...] [facility] Start: 1960 Sex Assigned At [facility] Start: 06-16-2024 End: 09-16-2024 Alcoholic beverage intake Ex-drinker (finding) [facility] Do you belong to any clubs or organizations such as taoism groups, unions, fraternal or athletic groups, or [...] Dates Cement Bn Bio 40 gm Rpl [id number] - [id number] Start: 11-06-2022 Cement Bn Bio 40 gm Rpl [id number] - [id number] Start: 11-06-2022 Component Fem 9 Randy Kn Lt Crcte Rtn Cmnt Persona Cocr - [id number] Start: 11-06-2022 Stem Xtn 30+ Mm 14mm Persona Tpr Kn Tib - [id number] Start: 11-06-2022 Component Ptlr 3 2mm Persona Alply Kn Strl Lf - [id number] Start: 11-06-2022 Insert Artc 8-9 C-D 10mm Kn Lt Vivacit-E Persona Strl - [id number] Start: 11-06-2022 Baseplate Tib 5d D Kn Lt Cmnt Stm Persona Tiv Strl - [id number] Start: 11-06-2022 Goals Date Patient Goal [...] Thank you signed documented in this encounter [facility] 10-15-2024 Telephone encounter Note Images from the [...] diet, exercise and weight loss. Thank you [facility] 10-15-2024 Telephone encounter Note signed [facility] 09-23-2024 Miscellaneous Notes Last OV 09/23/24 Last CBC 10/28/22.slm documented in this encounter [facility] 09-23-2024 Telephone encounter Note Last OV 09/23/24 Last CBC 10/28/22.slm [facility] 09-23-2024 History of Presen t illness Narrative [...] Preop clearance 10/21/2024 Dr Brown hysterectomy fax [phone] History of Present Illness Patient here for follow-up visit. Requesting cardiac clearance for planned hysterectomy procedure coming up in the near future. Stated that she was diagnosed with a precancer cells. Patient with history of paroxysmal atrial fibrillation, type 2 diabetes mellitus, hypertension, hyperlipidemia. Stated that overall she is doing well. 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 [...] no hospital stay Diabetes mellitus, type 2 ([facility]) no medications-diet controlled Gastritis 2015 GERD (gastroesophageal [...] 11/06/2022 Performed by Charles Frye MD at [facility] SKIN BIOPSY 2021 TONSILLECTOMY 1972 childhood TUBAL [...] Resource Strain: Low Risk (01/19/2024) Received from [facility] Overall Financial Resource Strain (CARDIA) Difficulty of Paying Living Expenses: Not hard at all Food Insecurity: No Food Insecurity (09/23/2024) Hunger Screening Food Insecurity - Worry: Never True Food Insecurity - Inability: Never True Transportation Needs: No Transportation Needs (01/19/2024) Received from [facility] PRAPARE - Transportation Lack of Transportation (Medical): No Lack of Transportation (Non-Medical): No Physical Activity: Insufficiently Active (01/19/2024) Received from [facility] Exercise Vital Sign Days of Exercise per Week: 2 days Minutes of Exercise per Session: 20 min Stress: Stress Concern Present (01/19/2024) Received from [facility] [place] [employer] - Occupational Stress Questionnaire Feeling of Stress : To some extent Social Connections: Moderately Integrated (01/19/2024) Received from [facility] Social Connection and Isolation Panel [NHANES] Frequency of Communication with Friends and Family: Once a week Frequency of Social Gatherings with Friends and Family: More than three times a week Attends Moravian Services: 1 to 4 times per year Active Member of Clubs or Organizations: No Attends Club or Organization Meetings: Not on file Marital Status: Living with partner Interpersonal Safety: Not on file Housing Instability: Unknown (01/19/2024) Received from [facility] Housing Stability Vital Sign Unable to [...] MD Referring Physician: Nuzhat Mike MD [address] [place] [address] documented in this encounter [facility] 09-21-2024 Miscellaneous Notes Left message for patient to remind them to bring their most current medication list with them to their appointment. documented in this encounter [facility] [employer] 09-21-2024 Telephone encounter Note Left message for patient to remind them to bring their most current medication list with them to their appointment. [facility] 09-16-2024 History of Presen t illness Narrative Reason for Appointment: Patient ID: Hafsa Flores is a 64 y.o. female who presents for Pre-op Visit Patient presents today for Pre Op appointment. Patient is scheduled to undergo Da David assisted Laparoscopic Hysterectomy, possible exploratory laparotomy, possible BSO, possible cystoscopy on 10/21/[address] Brown at [facility]. MEDICATIONS Current Outpatient Medications Medication Instructions cholecalciferol [...] Ambulatory Problems Diagnosis Date Noted Primary hypertension ([facility]) 11/28/2016 Anxiety 07/19/2020 Chronic eczematous otitis externa of both ears 04/26/2021 Gastro-esophageal reflux disease without esophagitis 01/20/2024 Hematuria, microscopic 11/10/2017 Hyperlipidemia ([facility]) 11/03/2020 Irregular periods 08/06/2015 Menopausal and female climacteric states 05/04/2017 Mitral valve prolapse 07/19/2020 Class 1 obesity 07/09/2022 Palpitations 01/20/2024 Primary osteoarthritis of both knees 07/09/2022 Type 2 diabetes mellitus without complication ([facility]) 01/20/2024 Vitamin D deficiency 07/09/2022 Resolved Ambulatory Problems Diagnosis Date Noted Mixed dyslipidemia ([facility]) 07/24/2023 Osteoarthritis of left knee 07/09/2022 Vaginal [...] nursing note reviewed. Exam conducted with a cook box filler present. Vitals: Estimated body mass index is [...] reviewed, and patient is to proceed to [facility] OR. Follow Up: Patient is to follow up at 1 & 6 weeks post operative to assess proper healing and recovery from procedure. Documented by Salina Salgado LPN on behalf of: Liam Brown DO documented in this encounter [facility] 09-14-2024 Telephone encounter Note Refills sent. [facility] 09-14-2024 Miscellaneous Notes Refills sent. documented in this encounter [facility] 09-09-2024 Telephone encounter Note Dexlansoprazole is the name of the rx she is currently taking. [facility] 09-09-2024 Miscellaneous Notes Dexlansoprazole is the name of the rx she is currently taking. Lmom for pt to cb, please ask cornelia's message and send back to her documented in this encounter [facility] 09-09-2024 Telephone encounter Note Lmom for pt to cb, please ask cornelia's message and send back to her [facility] 09-08-2024 Telephone encounter Note Patient is requesting dexilant - this works best for her. She thinks her insurance is trying to get her to try something else. She would prefer to stay on the dexilant. Uses [facility] in [place]. Thank you. [facility] 09-08-2024 Miscellaneous Notes Patient is requesting dexilant - this works best for her. She thinks her insurance is trying to get her to try something else. She would prefer to stay on the dexilant. Uses [facility] in [place]. Thank you. documented in this encounter [facility] 08-03-2024 History of Presen t illness Narrative Reason for Appointment: Patient ID: aHfsa Flores is a 64 y.o. female who [...] Ambulatory Problems Diagnosis Date Noted Primary hypertension ([facility]) 11/28/2016 Anxiety 07/19/2020 Chronic eczematous otitis externa of both ears 04/26/2021 Gastro-esophageal reflux disease without esophagitis 01/20/2024 Hematuria, microscopic 11/10/2017 Hyperlipidemia ([facility]) 11/03/2020 Irregular periods 08/06/2015 Menopausal and female climacteric states 05/04/2017 Mitral valve prolapse 07/19/2020 Class 1 obesity 07/09/2022 Palpitations 01/20/2024 Primary osteoarthritis of both knees 07/09/2022 Type 2 diabetes mellitus without complication ([facility]) 01/20/2024 Vitamin D deficiency 07/09/2022 Resolved Ambulatory Problems Diagnosis Date Noted Mixed dyslipidemia ([facility]) 07/24/2023 Osteoarthritis of left knee 07/09/2022 Vaginal yeast infection 07/29/2023 Need for vaccination 07/29/2023 Nausea without vomiting 11/06/2022 Nephrolithiasis 11/10/2017 Pain in throat 05/20/2019 Jennifer-menopause 01/20/2024 Past Medical History: Diagnosis Date Atrial fib/flutter, transient ([facility]) Chronic ear infection GERD (gastroesophageal reflux disease) Hypertension ([facility]) HISTORY PAST MEDICAL HISTORY SOCIAL HISTORY Past Medical History: Diagnosis Date Atrial fib/flutter, transient ([facility]) Chronic ear infection GERD (gastroesophageal reflux disease) Hypertension ([facility]) Mitral valve prolapse Social History Tobacco Use [...] nursing note reviewed. Exam conducted with a cook box filler present. Vitals: Estimated body mass index is [...] Liam Brown DO documented in this encounter [facility] 07-13-2024 History of Presen t illness Narrative Reason for Appointment: Patient ID: Hafsa Flores is a 64 y.o. female who presents for No chief complaint on file. Patient presents today via telephone call for a telehealth appointment. Patients Phone #: [phone] (mobile) Current Medications: has a current medication list which includes the following prescription(s): cholecalciferol, cranberry, dexlansoprazole, eliquis, fluocinolone, metoprolol succinate xl, and rosuvastatin. Medical History: Active Ambulatory Problems Diagnosis Date Noted Primary hypertension (CMS/HCC) 11/28/2016 Anxiety 07/19/2020 Chronic eczematous otitis externa of both ears 04/26/2021 Gastro-esophageal reflux disease without esophagitis 01/20/2024 Hematuria, microscopic 11/10/2017 Hyperlipidemia ([facility]/HCC) 11/03/2020 Irregular periods 08/06/2015 Menopausal and female climacteric states 05/04/2017 Mitral valve prolapse 07/19/2020 Class 1 obesity 07/09/2022 Palpitations 01/20/2024 Primary osteoarthritis of both knees 07/09/2022 Type 2 diabetes mellitus without complication ([facility]) 01/20/2024 Vitamin D deficiency 07/09/2022 Resolved Ambulatory Problems Diagnosis Date Noted Mixed dyslipidemia ([facility]) 07/24/2023 Osteoarthritis of left knee 07/09/2022 Vaginal yeast infection 07/29/2023 Need for vaccination 07/29/2023 Nausea without vomiting 11/06/2022 Nephrolithiasis 11/10/2017 Pain in throat 05/20/2019 Jennifer-menopause 01/20/2024 Past Medical History: Diagnosis Date Atrial fib/flutter, transient ([facility]) Chronic ear infection GERD (gastroesophageal reflux disease) Hypertension ([facility]) Family History Problem Relation Name Age of [...] Liam Brown DO documented in this encounter [facility] 06-16-2024 History of Presen t illness [...] Ambulatory Problems Diagnosis Date Noted Primary hypertension ([facility]) 11/28/2016 Anxiety 07/19/2020 Chronic eczematous otitis externa of both ears 04/26/2021 Gastro-esophageal reflux disease without esophagitis 01/20/2024 Hematuria, microscopic 11/10/2017 Hyperlipidemia ([facility]) 11/03/2020 Irregular periods 08/06/2015 Menopausal and female climacteric states 05/04/2017 Mitral valve prolapse 07/19/2020 Class 1 obesity 07/09/2022 Palpitations 01/20/2024 Primary osteoarthritis of both knees 07/09/2022 Type 2 diabetes mellitus without complication ([facility]) 01/20/2024 Vitamin D deficiency 07/09/2022 Resolved Ambulatory Problems Diagnosis Date Noted Mixed dyslipidemia ([facility]) 07/24/2023 Osteoarthritis of left knee 07/09/2022 Vaginal [...] D&C Hysteroscopy with myosure performed at [facility] with Dr. Brown. Pathology results was reviewed with the patient in great detail and all restrictions have been lifted. Follow Up: Patient is to return to the office for annual exam unless needed otherwise. Documented by KAMLA Sharpe on behalf of: KAMLA Sharpe documented in this encounter [facility] 10-30-2023 Telephone encounter Note sent [facility] 10-30-2023 Miscellaneous Notes sent Pt called stating that in her appt she asked if she could get diflucan sent over as well with an abx to the pharm but they only received a script for the abx. Can she get diflucan as well? documented in this encounter [facility] 10-29-2023 Telephone encounter Note Pt called stating that in her appt she asked if she could get diflucan sent over as well with an abx to the pharm but they only received a script for the abx. Can she get diflucan as well? [facility] Evaluation note Diagnosis Vaginal yeast infection- Primary Candidiasis of vulva and vagina documented in this encounter [facility] noteNo assessment information availableFisher-[facility] Work Phone: Evaluation note* Diagnosis Post-menopausal bleeding Postmenopausal bleeding documented in this encounter [facility]* Diagnosis Chronic eczematous otitis externa of left ear documented in this encounter [facility]* Diagnosis Post-menopausal bleeding Postmenopausal bleeding Burning with urination Dysuria documented in this encounter [facility]* Diagnosis Mixed dyslipidemia (CMS/HCC) documented in this encounter [facility]* Diagnosis Postoperative examination Follow-up examination, following unspecified surgery documented in this encounter [facility]* Diagnosis Gastroesophageal reflux disease without esophagitis Esophageal reflux documented in this encounter [facility]* Diagnosis Gastroesophageal reflux disease without esophagitis Esophageal reflux documented in this encounter [facility]* Diagnosis Vitamin D deficiency documented in this encounter [facility]* Diagnosis Chronic eczematous otitis externa of left ear documented in this encounter [facility]* Diagnosis Preop examination Unspecified pre-operative examination Post-menopausal bleeding Postmenopausal bleeding Pelvic pain in female Unspecified symptom associated with female genital organs Dyspareunia in female Dysmenorrhea documented in this encounter [facility]* Diagnosis Urinary tract infection with [...] pre-operative cardiovascular clearance [facility] Urinary tract infection with hematuria, site unspecified- Primary Renal cyst Unspecified congenital cystic kidney disease Nephrolithiasis Calculus of kidney Hematuria, microscopic Microscopic hematuria Nephrolithiasis- Primary Calculus of kidney Hematuria, microscopic Microscopic hematuria Renal cyst Unspecified congenital cystic kidney disease Paroxysmal atrial fibrillation (CMS-HCC) Atrial fibrillation [facility] Diagnosis Chronic eczematous otitis externa of left ear documented in this encounter [facility] HealthcareInstructionsNot on filedocumented in this encounterProMedica Health [...] and content) DATE CREATED AUTHOR 07/16/2020 [facility] DATE CREATED AUTHOR AUTHOR'S ORGANIZ ATION 09/10/2020 [facility] DATE CREATED AUTHOR AUTHOR'S ORGANIZ ATION 11/24/2020 [facility] DATE CREATED AUTHOR AUTHOR'S ORGANIZ ATION 11/08/2021 [facility] Special[facility] DATE CREATED AUTHOR AUTHOR'S ORGANIZ ATION 06/12/2024 [facility] DATE CREATED AUTHOR AUTHOR'S ORGANIZ ATION 09/19/2024 [facility] EPIC DATE CREATED AUTHOR AUTHOR'S ORGANIZ ATION 10/13/2024 [facility] Care Teams (unrecognized sec tion and content) Production Mechanic Relationship Specialty Start Date End Date Vanesa Santa NP [address] [facility] [place] [address] PCP - [facility] 05/30/22 Nuzhat Mike MD [address] [facility] [address] [place] [address] PCP - General Family Medicine 02/04/23 Team Status: Active Member Role Status Dates PHYSICIAN NO FAMILY Primary Care Provider Active Team Status: Inactive Member Role Status Dates PHYSICIAN NO FAMILY Primary Care Provider Active Start: June 04, 2024 End: June 04, 2024 Liam Brown DO Attending Provider Active Start : June 04, 2024 End: June 04, 2024 Production Mechanic Relationship Specialty Start Date End Date Nuzhat Mike MD [address] [facility] [place] [address] PCP - General Family Medicine 02/04/23 Bisi Carcamo NP [address] [place] [address] PCP - [facility] 03/29/24 Production Mechanic Relationship Specialty Start Date End Date Nuzhat Mike MD [address] [place] [address] PCP - General Family Medicine 02/04/23 Bisi Carcamo NP [address] [place] [address] PCP - [facility] 03/29/24 Production Mechanic Relationship Specialty Start Date End Date Nuzhat Mike MD [address] [place] [address] PCP - General Family Medicine 02/04/23 Bisi Carcamo NP [address] [place] [address] PCP - [facility] 03/29/24 Production Mechanic Relationship Specialty Start Date End Date Nuzhat Mike MD [address] [place] [address] PCP - General Family Medicine 02/04/23 Bisi Carcamo NP [address] [place] [address] PCP - [facility] 03/29/24 Production Mechanic Relationship Specialty Start Date End Date Nuzhat Mike MD [address] [place] [address] PCP - General Family Medicine 02/04/23 Bisi Carcamo NP [address] [place] [address] PCP - [facility] 03/29/24 Production Mechanic Relationship Specialty Start Date End Date Nuzhat Mike MD [address] [place] [address] PCP - General Family Medicine 02/04/23 Bisi Carcamo NP [address] [place] [address] PCP - [facility] 03/29/24 Production Mechanic Relationship Specialty Start Date End Date Nuzhat Mike MD [address] [facility] [place] [address] PCP - General Family Medicine 02/04/23 Bisi Carcamo NP [address] [place] [address] PCP - [facility] 03/29/24 Production Mechanic Relationship Specialty Start Date End Date Nuzhat Mike MD [address] [place] [address] PCP - General Family Medicine 05/03/19 Production Mechanic Relationship Specialty Start Date End Date Nuzhat Mike MD [address] [place] [address] PCP - General Family Medicine 05/03/19 Production Mechanic Relationship Specialty Start Date End Date Nuzhat Mike MD [address] [place] [address] PCP - General Family Medicine 05/03/19 Production Mechanic Relationship Specialty Start Date End Date Nuzhat Mike MD [address] [place] [address] PCP - General Family Medicine 05/03/19 Goals [...] Preop clearance 09/30 Dr Brown hysterectomy fax [phone] Reason Onset Date Comments Med Refill 09/23/2024 [...] BE BASED ON THE PRIMARY CLINICAL RECORDS. [employer] provides no warranty or guarantee of the accuracy or completeness of information in this document.
[2024-10-22 11:36] VITALS: BP 138/78; PULSE 94; TEMP 36.8; O2SAT 92
--- NOTE | 2024-10-22 12:24 | P.GYNPN_ITS ---
SERVICE ENGINE REPAIRER - PN: Subj Post-Op Subjective: patient reports feeling better, patient has no complaints, patient desires discharge, pain is well controlled and patient is tolerating oral intake Exam Constitutional Vital Signs, click to edit/add: Last Vital Signs Temp 98.2 F 10/22/24 11:36 Pulse 94 H 10/22/24 11:36 Resp 16 10/22/24 11:36 BP 138/78 10/22/24 11:36 Pulse Ox 92 L 10/22/24 11:36 O2 Del Method Room Air 10/22/24 11:36 O2 Flow Rate 2 10/22/24 00:04 Documenting provider has reviewed patient's vital signs: yes Common normals: no apparent distress Respiratory Common normals: clear to auscultation bilaterally Cardio Common normals: regular rate and regular rhythm GI Common normals: Normal to inspection, nondistended, normoactive bowel sounds present Extremity Common normals: no clubbing, cyanosis or edema Results Labs Labs: Short CBC 10/22/24 Range/Units 05:38 WBC 9.5 (4.0-11.0) 10^3/uL Hgb 12.4 (12.0-16.0) g/dL Hct 38.0 (36.0-48.0) % Plt Count 237 (150-450) 10^3/uL SERVICE ENGINE REPAIRER - A/P Postoperative Procedures: Procedures Operation Date: 10/21/24 12:30 Actual Procedure Side Surgeon p total abdominal Hysterectomy, partial bilateral salpingectomy, bilateral oophorectomy, cystoscopy Not Applicable Liam Brown DO Postoperative day: 1 Postoperative status SERVICE ENGINE REPAIRER: doing well Post-operative plan SERVICE ENGINE REPAIRER: routine post-op care, advance diet and discharge Fall Risk Details Hernandez fall scale risk level: Low Fall Risk Current medications: Current Medications Docusate Sodium (Docusate Sodium 100 Mg Capsule) 100 mg PO BID PRN PRN Reason: Constipation Last Admin: 10/22/24 07:56 Dose: 100 mg Enoxaparin Sodium (Enoxaparin Sodium 40 Mg/0.4 Ml Syringe) 40 mg SUBQ Q24H [facility] Last Admin: 10/22/24 07:58 Dose: 40 mg Lactated Ringer's (Lactated Ringers) 1,000 mls @ 125 mls/hr IV .Q8H [facility] Last Infusion: 01/24/25 07:35 Dose: Infused Promethazine HCl 25 mg/ Sodium (Chloride) 51 mls @ 204 mls/hr IV Q6H PRN PRN Reason: Nausea And Vomiting Last Infusion: 10/21/24 20:13 Dose: Infused Ibuprofen (Ibuprofen 400 Mg Tablet) 800 mg PO Q6H PRN PRN Reason: Pain Last Admin: 10/22/24 07:56 Dose: 800 mg Ketorolac Tromethamine (Ketorolac Tromethamine 30 Mg/Ml Vial) 30 mg IVP Q6H PRN PRN Reason: Pain Last Admin: 10/21/24 19:57 Dose: 30 mg Metoclopramide HCl (Metoclopramide Hcl 10 Mg/2 Ml Vial) 10 mg IVP Q6H PRN PRN Reason: Nausea And Vomiting Last Admin: 10/22/24 00:58 Dose: 10 mg Ondansetron HCl (Ondansetron Pf 4 Mg/2 Ml Vial) 4 mg IV Q6H PRN PRN Reason: Nausea Last Admin: 10/22/24 00:30 Dose: 4 mg Oxycodone/Acetaminophen (Oxycodone Hcl/Acetaminophen 5mg/325mg) 1 tab PO Q6H PRN PRN Reason: Pain Oxycodone/Acetaminophen (Oxycodone Hcl/Acetaminophen 5mg/325mg) 2 tab PO Q6H PRN PRN Reason: Pain Last Admin: 10/22/24 00:58 Dose: 2 tab Simethicone (Simethicone 80 Mg Tab.Chew) 80 mg PO PCHS PRN PRN Reason: Abdominal Distention Last Admin: 10/21/24 19:58 Dose: 80 mg Temazepam (Temazepam 15 Mg Capsule) 30 mg PO QHS PRN PRN Reason: Sleep Time Spent With Patient Time: Total time spent is greater than 50% in coordination of care (as documented) at patient's floor/unit and/or counseling patient: Time with patient: less than 15 minutes Urinary Catheter Management Urinary Catheter Management Urethral: Cath placed during this visit: no
--- NOTE | 2024-10-27 14:05 | CM.DCFOLLOWU ---
Person spoke with:patient How are you feeling? well How is your pain? none Did you understand your discharge instructions? yes Do you have any questions about your discharge instructions? no Were you given any prescriptions at discharge? yes Were you able to get your prescriptions filled?yes Do you understand how to take your medications as ordered?yes Do you have any questions about your follow up appointment and do you plan to keep your follow up appointment? no questions, follow up called and scheduled Is there anything else that you would like to discuss?no Questions/Comments/Concerns/Other:none
== END 2024-10-22 13:55 | disposition home or self-care (01) | DRG 743 ==
LOC: MS 10-22 10:35
PROVIDERS: Admitting Provider Obstetrics & Gynecology; PCP Family Medicine; Visit Provider Obstetrics & Gynecology
PROC: 0UT90ZZ Resection of Uterus, Open Approach (ICD-10-PCS; principal; 2024-10-21 12:30)
DX: N95.0 Postmenopausal bleeding (principal); Z98.51 Tubal ligation status; E78.5 Hyperlipidemia, unspecified; I10 Essential (primary) hypertension; I48.91 Unspecified atrial fibrillation; I34.1 Nonrheumatic mitral (valve) prolapse; E11.9 Type 2 diabetes mellitus without complications; K21.9 Gastro-esophageal reflux disease without esophagitis; N80.9 Endometriosis, unspecified
CPT/HCPCS: 36415; 64488; 82948; 85025; 88302; 88305; 88307; 94667; J0131; J0360; J0665; J0690; J1100; J1171; J1290; J1650; J1885; J2250; J2371; J2405; J2550; J2704; J2765; J3010